=== PATIENT | female | born 1940 | race Hispanic/Latino ===

== ENCOUNTER 2017-11-21 06:20 | Day surgery (SDC) | payer OTHER ==
[2017-11-19 13:50] LABS: Absolute Lymphocytes (CBC) 1.6 K/uL (0.7-4.9); Absolute Monocytes 0.4 K/uL (0.1-1.3); Absolute Neutrophil 3.4 K/uL (1.8-8.0); Basophils % 0.3 % (0-1.3); Eosinophils % 1.3 % (0-4.4); Lymphocytes % 29.1 % (15.3-44.8); MCH 28.1 pg (27.0-35.0); MCV 86.7 fL (80-100); MPV 9.5 fL (7.6-11.3); Monocytes % 7.4 % (3.3-12.3); RBC Red Blood Cell Count 4.85 M/uL (3.86-4.86)
--- NOTE | 2017-11-19 13:57 | EKG ---
Test Date: 2017-11-19 Test Time: 13:28:07 Wax Ball Molder: JENNIFER MEASUREMENT RESULTS: Intervals: Rate: 63 OR: 138 QRSD: 78 QT: 418 QTc: 427 [place]: P: 45 OR: 138 QRS: 10 T: 29 INTERPRETIVE STATEMENTS: Normal sinus rhythm Normal ECG Compared to ECG 07/01/2016 15:51:46 Sinus bradycardia no longer present Electronically Signed On 11-19-17 13:57:15 CDT by Estevan Rodrigues
[2017-11-19 14:23] LABS: Potassium 4.5 mEq/L (3.6-5.0)
[2017-11-21] MEDS ORDERED: Ringers Lactate 1,000 ML IV ONE (06:24)
[2017-11-21] MEDS ORDERED: CEFAZOLIN/SWI 1gm 1 GM/10 ML SYR ONE (06:25)
[2017-11-21] MEDS ORDERED: MIDAZOLAM HCL 2 MG/2 ML INJ ONE (06:53)
[2017-11-21] MEDS ORDERED: LIDOCAINE 2% MPF 5 ML VIAL ONE (06:53)
[2017-11-21] MEDS ORDERED: PROPOFOL 200 MG/20 ML VIAL IV ONE (06:53)
[2017-11-21] MEDS ORDERED: FENTANYL CITR 100 MCG/2 ML ONE (06:54)
[2017-11-21] MEDS ORDERED: EPHEDRINE SULF 50 MG/5 ML SYR ONE (06:57)
--- NOTE | 2017-11-21 08:26 | P.BOP ---
Preoperative diagnosis: right knee pain with mechanical sx Postoperative diagnosis: medial meniscal/lat meniscal tear(s) Primary procedure: right knee arthoscopy with medial/lat debridement Estimated blood loss: 10 ccs Anesthesia: General Transferred to: Recovery Room Condition: Good
--- NOTE | 2017-11-21 09:06 | OP ---
Date of Procedure: 11/21/2017 Surgeon: Lyndon Calle MD Preoperative Diagnosis: Right knee pain with mechanical symptoms. Postoperative Diagnoses: Right knee pain with mechanical symptoms with apparent tear of the anterior horn of the medial meniscus with some tearing of the far posterior horn of medial meniscus, also wit h small tear of the lateral meniscus. Procedure: Right knee arthroscopy with debridement of medial and lateral menisci. Estimated Blood Loss: 10 cc. Complications: None. Specimens: No pathology specimens present. Indication For Operation: Ms. Santiago is a 76-year-old female who does not have significant amount o f arthritis, who on x-ray has continued persistent mechanical symptoms related to her right knee. De spite conservative care, she continues to have pain and problems. Therefore, MRI was done which demo nstrates probable meniscal tear or tears. All risks, benefits, and alternatives to the procedure wer e discussed with the patient. She states she understands things presented and wished to proceed. Description Of Procedure: The patient was taken to the operating room and placed in supine position. General anesthesia was obtained by the Anesthesia staff. Following this, a well-padded tourniquet was placed on superior right thigh, however was not used throughout the case. The right lower extrem ity was then prepped and draped in usual fashion for the procedure. Following this, attention was fi rst turned to the medial aspect, where there was found on inspection, a fairly large firm rubbery obj ect near the anterior horn of the medial meniscus. Also seen is some fraying and tearing of the post erior horn of the medial meniscus. A probe was used after establishment of the medial portal and it does demonstrate that if you pull the meniscus back, there is full thickness chondral loss underneath the medial meniscus. Also, there was some displaceable meniscal fragmentation. A 3.5 shaver was th en used to debride back the meniscus to a firm, hooked, stable, and well contoured base, both anterio rly and posteriorly. Attention was then turned to the lateral aspect, which demonstrate some fraying and could be rather s ignificant fraying at the midportion of the lateral meniscus. There was also seen a chondral defect at the lateral femoral condyle. The lateral meniscus was then debrided back to firm, hooked, stable, well contoured base. There was a slight amount of chondroplasty done to the lateral femoral condyle . The knee was again examined and all the above areas were without any pathology seen, which is amen able to arthroscopic intervention. Following this, the inferior arthroscopy portals were stapled yann t. The superior and medial arthroscopy portals were used for placement of Marcaine and this was then closed. The patient was then awakened and taken to recovery room in good condition. SHAMAR Voice ID: [id number] Report ID: [id number]
== END 2017-11-21 09:50 | disposition home or self-care (01) ==
LOC: OR 06:20
PROVIDERS: ATTEND Orthopaedic Surgery
PROC: 0SBC4ZZ Excision of Right Knee Joint, Percutaneous Endoscopic Approach (ICD-10-PCS; 2017-11-21)
PROC: 0SBC4ZZ Excision of Right Knee Joint, Percutaneous Endoscopic Approach (ICD-10-PCS; principal; 2017-11-21 07:30)
DX: S83.241A Other tear of medial meniscus, current injury, right knee, initial encounter (principal); S83.281A Other tear of lateral meniscus, current injury, right knee, initial encounter; M19.90 Unspecified osteoarthritis, unspecified site; I10 Essential (primary) hypertension
CPT/HCPCS: 29880; 36415; 80048; 85025; 93005; J0690; J2250; J3010

== ENCOUNTER → 2019-05-19 | Day surgery (SDC) | payer OTHER ==
[~2019-05-19] MED LIST: Ringers Lactate 0 ML IV ONE
--- NOTE | 2019-05-19 11:30 | RAD REPORT ---
EXAM DESCRIPTION: US - Breast Core BX w/US Guidance - 05/19/2019 9:45 am CLINICAL HISTORY: ICD N63.11, R93.8 COMPARISON: April 12, 2019 ultrasound TECHNIQUE: The risks, benefits alternatives to the procedure were explained to the patient and infor med consent obtained. Skin, subcutaneous and breast tissues anesthetized with lidocaine. Under sonographic guidance, two 14 gauge vacuum assisted core biopsies of the mass within the upper r ight breast were obtained. 2 centimeter specimens taken. Materials given to pathology. Subsequently a localizing clip was placed into the mass. Patient experienced no immediate complication IMPRESSION: Vacuum assisted core biopsies of the right breast mass
== END ==
LOC: DS 05-12 10:46
PROVIDERS: ATTEND Surgery
DX: C50.811 Malignant neoplasm of overlapping sites of right female breast (principal); Z17.0 Estrogen receptor positive status [ER+]
CPT/HCPCS: 19083; 88305

== ENCOUNTER 2019-05-31 06:49 | Day surgery (SDC) | payer OTHER ==
[2019-05-28 13:59] LABS: Absolute Lymphocytes (CBC) 1.7 K/uL (0.7-4.9); Basophils % 0.5 % (0-1.3); Hematocrit 41.8 % (36.0-45.0); Lymphocytes % 23.7 % (15.3-44.8); MPV 8.6 fL (7.6-11.3); RBC Red Blood Cell Count 4.79 M/uL (3.86-4.86)
[2019-05-28 14:11] LABS: Potassium 4.1 mmol/L (3.5-5.1)
--- NOTE | 2019-05-28 14:16 | RAD REPORT ---
EXAM DESCRIPTION: RAD - Chest Pa And Lat (2 Views) - 05/28/2019 2:11 pm CLINICAL HISTORY: preop, breast cancer surgery COMPARISON: None. TECHNIQUE: PA and lateral views of the chest were obtained. FINDINGS: The lungs are clear. No suspicious mass or nodule in the lung parenchyma. Heart size is n ormal and central vasculature is within normal limits. No pleural effusion or pneumothorax seen. Os teopenic and degenerative bony changes are present in the thoracic spine. There is minimal wedging of a midthoracic vertebrae not suspected to be acute. No aortic abnormality. IMPRESSION: No acute cardiopulmonary process.
--- NOTE | 2019-05-28 16:34 | EKG ---
Test Date: 2019-05-28 Test Time: 13:51:38 Residential Therapist: POWER MEASUREMENT RESULTS: Intervals: Rate: 59 DE: 124 QRSD: 78 QT: 406 QTc: 401 [place]: P: 54 DE: 124 QRS: 26 T: 36 INTERPRETIVE STATEMENTS: Sinus bradycardia Otherwise normal ECG Compared to ECG 11/19/2017 13:28:07 Sinus rhythm no longer present Electronically Signed On 05-28-19 16:33:44 COIL SPRING ASSEMBLER by Narinder Gann
[2019-05-31] MEDS ORDERED: Ringers Lactate 1,000 ML IV ONE ×2 (07:09→12:32)
[2019-05-31] MEDS ORDERED: CEFAZOLIN/SWI 1gm 1 GM/10 ML SYR ONE (07:10)
--- NOTE | 2019-05-31 08:38 | RAD REPORT ---
EXAM DESCRIPTION: NM - Lymphoscintigraphy - 05/31/2019 8:22 am CLINICAL HISTORY: BREAST CA Right breast preoperative lymphoscintigraphy COMPARISON: Chest Pa And Lat (2 Views) dated 05/28/2019 FINDINGS: Four separate injections of 0.1 millicuries technetium sulfur colloid were formulated. The radiopharmaceutical was injected intradermally in a right periareolar distribution. Good localizatio n of radiopharmaceutical was seen on the initial post injection scintigraphic. IMPRESSION: Successful preoperative right breast lymphoscintigraphy injection.
[2019-05-31] MEDS ORDERED: propofoL 200 MG/20 ML VIAL IV ONE (09:23)
[2019-05-31] MEDS ORDERED: FENTANYL CITR 100 MCG/2 ML ONE (09:23)
[2019-05-31] MEDS ORDERED: LIDOCAINE 1% MPF 5 ML VIAL ONE (09:23)
[2019-05-31] MEDS: METHYLENE BLUE 0.5% 10 ML AMP ONE ×2 (10:20→11:10)
--- NOTE | 2019-05-31 10:30 | RAD REPORT ---
EXAM DESCRIPTION: US - Brst,Preop NL Wire Init w/Guid - 05/31/2019 8:54 am CLINICAL HISTORY: BREAST MASS Right breast mass, 12 o'clock COMPARISON: Breast Core BX w/US Guidance dated 05/19/2019 FINDINGS: Preoperative diagnosis: Hypoechoic right breast mass 12 o'clock.. Post operative diagnosis: Same. Conscious Sedation: None Fluoroscopy time: None Contrast used: None Estimated blood loss: Minimal The right breast was prepped and draped in the usual sterile fashion. 1% lidocaine was infiltrated in to the subcutaneous tissues for local anesthesia. Real time ultrasound scanning of the right breast d emonstrated hypoechoic shadowing 10 mm mass. Under ultrasound guidance, using a [employer] preoperative wir e localization device, a guidewire was placed into the mass. There were no complications. Patient was then transferred to surgery. IMPRESSION: Successful ultrasound-guided preoperative wire localization right breast mass 12 o'clock position.
[2019-05-31] MEDS ORDERED: EPHEDRINE SULF 50 MG/ML VIAL ONE (11:01)
[2019-05-31] MEDS ORDERED: GLYCOPYRROLATE 0.2 MG/ML SYR ONE (11:32)
[2019-05-31] MEDS ORDERED: LABETALOL 20 MG/4ML SYRINGE IV ONE (11:40)
[2019-05-31] MEDS ORDERED: KETOROLAC 30 MG/ML INJ ONE (11:57)
[2019-05-31] MEDS ORDERED: dexAMETHasone 10 MG/ML VIAL ONE (11:58)
--- NOTE | 2019-05-31 11:59 | P.BOP ---
Preoperative diagnosis: right breast cancer Postoperative diagnosis: same Primary procedure: Right breast lumpectomy with axillary sentinel lymph node biopsy Power Plant Operator: MAIRA BAIRD (CLIP LOADING MACHINE ADJUSTER) Estimated blood loss: <10cc Specimen: breast Findings: sentinel LN neg per Dr Kendrick. lesion within specimen by Dr Valencia Anesthesia: General Complications: None Transferred to: Recovery Room Condition: Good
--- NOTE | 2019-05-31 12:05 | RAD REPORT ---
EXAM DESCRIPTION: US - Surgical Specimen - 05/31/2019 11:57 am CLINICAL HISTORY: SPEC Surgical specimen right breast COMPARISON: Brst,Preop NL Wire Init w/Guid dated 05/31/2019; Lymphoscintigraphy dated 05/31/2019; Br east Core BX w/US Guidance dated 05/19/2019 FINDINGS: Sonographic evaluation of right breast surgical specimen was performed. The mass of intere st and wire are seen a within the specimen. Findings were discussed with Dr. Schulz.
[2019-05-31 13:28] VITALS: BP 134/69; TEMP 96.9; O2SAT 895
[2019-05-31] MEDS ORDERED: ONDANSETRON 4 MG/2 ML VIAL ONE (13:41)
[2019-05-31] MEDS ORDERED: CODEINE 30MG/APAP 300MG TAB ONE (13:41)
--- NOTE | 2019-05-31 22:33 | OP ---
Date of Procedure: 05/31/2019 Surgeon: Valentino Schulz MD Role Player: IAN Montejo. Preoperative Diagnosis: Right breast cancer. Postoperative Diagnosis: Right breast cancer. Procedure: Right breast lumpectomy needle localized with axillary sentinel lymph node biopsy. Estimated Blood Loss: Less than 10 cc. Specimen: Breast. Findings: [place] lymph node negative per Dr. Kendrick. Lesion within the specimen by the radiologis tDr. Parker. Anesthesia: General plus local. Indications: This is a case of a female found to have breast cancer. Fully explained the multiple o ptions. She has elected a right breast lumpectomy with sentinel lymph node biopsy, possible axillary dissection understanding that she will receive radiation. She also has more aggressive form how to resect this, but she does not want at this moment. The benefits, alternatives, and risks fully expla ined, which include but are not limited to infection, bleeding, damage to adjacent structures, anesth esia complication, chronic lymphedema, chronic pain, recurrence, OH, even . She also understand s this may not relieve any symptoms. She might need more than one surgical intervention. She unders tood, signed the consent. Description Of Procedure: This patient came from the radiology suite, where she did have 2 different procedures. She received a sentinel lymph node marking this morning by radiologist and also she rec eived needle localization of the lesion. She was brought to the OR and then brought to operating cuauhtemoc m with intact needle protected at all times. The patient was brought to the operating room, placed i n supine position. Anesthesia was done without complication. Time-out was called. The right breast was prepped and draped in a sterile fashion. We injected blue dye over the area periareolar underne ath the lesion and massaged the area for about 5 minutes. All this making sure the needle remained i ntact. After that, once again we had the area prepped and draped in a sterile fashion. We proceeded to check for the sentinel lymph node. We made an incision in the inframammary line after obtaining our first measure, which is skin measure using the gamma probe and the skin was 237. In vivo number was 608. After that, we proceeded then to identify the lymph node and we noticed blue. We tried to remove that with the help of hemoclips. Specimen was removed. It showed an ex-vivo count of 762 and 10 seconds ex-vivo count is 799 with a blue node. The specimen was sent to the pathologist. There was a sentinel lymph node and another an extra lymph node, and both of them are negative for any canc er. Therefore, we ill closed this with just irrigation making sure we have full hemostasis and then closed the area with 3-0 chromic in a subcuticular fashion and then lisandro on the skin. The sponge count and instrument count in that area are clear; and then we went to the right breast region. We a lready had a wire localized in that area. So, we made a curvilinear incision to include also the ins ertion of that wire point. Then after that, we proceeded to remove the breast tissue, which was take n all the way down to deep breast tissue. Specimen was removed, sent with the wire to the radiologis t, who confirmed the lesion within the specimen. Area was irrigated, hemostasis obtained, and we cindy sed the area with 3-0 chromic and 4-0 PDS after ensuring complete hemostasis. Sponge count and instr ument counts were correct. Patient tolerated the procedure well. Patient was sent to recovery in st able condition. Disposition: Home. Activity: As tolerated. No heavy lifting. Followup: Follow up in my office in 1 week. Call for appointment at [phone]. Keep area dry for 48 hours, then may shower. Keep Steri-Strips intact. Medications: Tylenol No. 3 q.4 hours p.r.n. pain, Bactrim DS p.o. b.i.d. ALFREDO/YOCASTA Voice ID: [id number] Report ID: [id number]
== END 2019-05-31 14:25 | disposition home or self-care (01) ==
LOC: OR 06:49
PROVIDERS: ATTEND Surgery
PROC: 07B50ZX Excision of Right Axillary Lymphatic, Open Approach, Diagnostic (ICD-10-PCS; 2019-05-31)
PROC: 0HBT0ZZ Excision of Right Breast, Open Approach (ICD-10-PCS; principal; 2019-05-31 10:15)
DX: C50.411 Malignant neoplasm of upper-outer quadrant of right female breast (principal); Z17.0 Estrogen receptor positive status [ER+]; I10 Essential (primary) hypertension; E78.5 Hyperlipidemia, unspecified; Z90.49 Acquired absence of other specified parts of digestive tract; Z80.9 Family history of malignant neoplasm, unspecified; Z82.49 Family history of ischemic heart disease and other diseases of the circulatory system
CPT/HCPCS: 19301; 93005; 85025; 80048; 36415; 88307 ×2; 88333; 71046; 76098; 19285; 78195; 38500; 38900; J1100; J0690; J7120 ×2; J2405; A9541; J2704; J3010

== ENCOUNTER 2020-01-04 12:38 | Inpatient (IN) | payer OTHER ==
[2020-01-04] MEDS ORDERED: FENTANYL CITR 100 MCG/2 ML ONE (13:19)
--- NOTE | 2020-01-04 14:49 | RAD REPORT ---
EXAM DESCRIPTION: RAD - Femur Right - 01/04/2020 2:18 pm CLINICAL HISTORY: Right leg pain FINDINGS: Comminuted moderately displaced fracture right superior pubic ramus. Nondisplaced fracture right infe rior pubic ramus Osteoporosis No dislocation
--- NOTE | 2020-01-04 14:49 | RAD REPORT ---
EXAM DESCRIPTION: RAD - Pelvis - 01/04/2020 2:18 pm CLINICAL HISTORY: Pelvic pain status post injury FINDINGS: Comminuted moderately displaced fracture right superior pubic ramus. Nondisplaced fracture right inferior pubic ramus Osteoporosis No dislocation
--- NOTE | 2020-01-04 14:54 | RAD REPORT ---
EXAM DESCRIPTION: CTSpine Lumbar Wo Con01/04/2020 2:19 pm CLINICAL HISTORY: Back injury with radiculopathy status post fall COMPARISON: None TECHNIQUE: Computed axial tomography lumbar spine was obtained with coronal and sagittal reconstruct ion. All CT scans are performed using dose optimization technique as appropriate and may include automated exposure control or mA/KV adjustment according to patient size. FINDINGS: No fracture is seen. No dislocation is noted. A high-grade stenosis is not visualized IMPRESSION: Negative for a lumbar fracture. If patient continues have symptoms to suggest spinal can al pathology MRI would be recommended
--- NOTE | 2020-01-04 14:58 | RAD REPORT ---
EXAM DESCRIPTION: CT - Pelvis Wo Cont - 01/04/2020 2:20 pm CLINICAL HISTORY: Pelvic pain status post fall COMPARISON: None. TECHNIQUE: Computed axial tomography of the pelvis was obtained. Coronal and sagittal reconstruction performed All CT scans are performed using dose optimization technique as appropriate and may include automated exposure control or mA/KV adjustment according to patient size. FINDINGS: Mildly to moderately displaced comminuted fracture right superior pubic ramus. Minimally displaced fracture junction of the right superior and inferior pubic ramus. No dislocation Small extraperitoneal hematoma adjacent to bladder. IMPRESSION: Mildly to moderately displaced comminuted fracture right superior pubic ramus Minimally displaced fracture junction of the right superior and inferior pubic ramus.
[2020-01-04] MEDS ORDERED: MORPHINE 2 MG/ML SYR ONE ×3 (15:52→23:10)
--- NOTE | 2020-01-04 16:05 | ER ---
Nurse's Notes [facility] Name: Autumn Santiago Age: 79 yrs Sex: Female : 1940 Arrival Date: 01/04/2020 Time: 12:46 Bed 17 Private MD: Diagnosis: Multiple fractures of pelvis without disruption of pelvic ring;Fall on same level from slipping, tripping and stumbling Presentation: 01/03 12:35 Chief complaint: Patient states: fell at 6pm last night and landed on her right hip, ah has pain from right groin to outer right hip 03/18. vitals 128/60, 72, 96%, 98.2. Coronavirus screen: Patient denies a cough. Patient denies shortness of breath or difficulty breathing. Patient denies measured and/or subjective temperature greater than 100.4F prior to today's visit. Patient denies travel on a cruise ship or to a country the [facility] currently lists as an affected area. Patient denies contact with known and/or suspected case of COVID-19. Proceed with normal triage. Ebola Screen: No symptoms or risks identified at this time. Initial Sepsis Screen: Does the patient meet any 2 criteria? No. Patient's initial sepsis screen is negative. Does the patient have a suspected source of infection? No. Patient's initial sepsis screen is negative. Risk Assessment: Do you want to hurt yourself or someone else? Patient reports no desire to harm self or others. Onset of symptoms was January 03, 2020. 12:35 Method Of Arrival: EMS: [facility] 12:35 Acuity: MEME 3 Historical: - Allergies: 12:53 No Known Allergies; - Home Meds: 12:53 aspirin 81 mg Oral chew [Active]; 01/04 01:22 amlodipine 5 mg tab 1 tab once daily [Active]; gabapentin 300 mg oral cap 1 cap TWICE mt2 DAILY for Neuropathic Pain [Active]; anastrozole 1 mg oral tab 1 tab once daily for Hormone Receptor Positive Breast Cancer [Active]; omeprazole 20 mg Oral cpDR 1 cap once daily for Gastric Ulcer [Active]; - PMHx: 01/03 12:53 Hypertension; neuropathy; Cancer, Breast; Osteoporosis; - PSHx: 12:53 Cholecystectomy; Appendectomy; Hysterectomy; lymphnodes removed from right breast; Knee surgery; - Immunization history:: Adult Immunizations up to date. - Social history:: Smoking status: Patient denies any tobacco usage or history of. Screenin:14 Abuse screen: Denies threats or abuse. Nutritional screening: No deficits noted. Tuberculosis screening: No symptoms or risk factors identified. Fall Risk None identified. Assessment: 13:00 General: Appears uncomfortable, Behavior is calm, cooperative, appropriate for age. ah Pain: Complains of pain in groin, right inguinal area, right iliac crest and right hip Pain does not radiate. Pain currently is 10 out of 10 on a pain scale. Quality of pain is described as aching, Pain began 1 day ago. Neuro: Level of Consciousness is awake, alert, obeys commands, Oriented to person, place, time, situation, Appropriate for age. Cardiovascular: Capillary refill < 3 seconds Patient's skin is warm and dry. Respiratory: Airway is patent Respiratory effort is even, unlabored, Respiratory pattern is regular, symmetrical. : Urine is clear, Reports difficulty urinating. Derm: Skin is intact, is healthy with good turgor, Skin is dry. Musculoskeletal: Circulation, motion, and sensation intact. Capillary refill < 3 seconds, Reports pain in groin and right hip. 13:10 Reassessment: Fentanyl given per IVP. 14:10 Reassessment: Patient and/or family updated on plan of care and expected duration. Pain ah level reassessed. Patient is alert, oriented x 3, equal unlabored respirations, skin warm/dry/pink. Pt tolerated fentanyl well. No adverse reactions noted. 15:45 Reassessment: Pt states that she is unable to urinate in the bedpan. Informed provider, and he ordered a straight cath and a urine dipstick. Pt tolerated well. 17:45 Reassessment: Pt sitting up in bed eating tray. Tolerated well. No needs voiced. 18:52 Reassessment: Awaiting on room assignment. Pt resting with no needs voiced at this time. 19:20 Reassessment: Patient and/or family updated on plan of care and expected duration. Pain mt2 level reassessed. General: Appears uncomfortable, Behavior is cooperative. Pain: Complains of pain in pelvis Pain does not radiate. Pain currently is 8 out of 10 on a pain scale. Quality of pain is described as aching. 20:00 Reassessment: Patient and/or family updated on plan of care and expected duration. Pain mt2 level reassessed. Reassessment: Patient is alert, oriented x 3, equal unlabored respirations, skin warm/dry/pink. General: Appears. General: Appears uncomfortable, Behavior is cooperative. Pain: Complains of pain in pelvis Pain currently is 5 out of 10 on a pain scale. GI: No deficits noted. EENT: No deficits noted. 21:00 Reassessment: Patient and/or family updated on plan of care and expected duration. Pain mt2 level reassessed. Patient is alert, oriented x 3, equal unlabored respirations, skin warm/dry/pink. PT IS ADMITTED AND WILL BE A N ED HOLD. NOTIFIED PT. REFERE TO [facility]ART[facility]. General: Appears comfortable, Behavior is calm, cooperative. Pain: Denies pain. Vital Signs: 12:35 BP 127 / 71; Pulse 68; Resp 18; Temp 98.8; Pulse Ox 94% ; Weight 66.22 kg; Height 5 ft. 7 in. (170.18 cm); Pain 10/10; 13:00 BP 125 / 63; Pulse 64; Resp 17; Pulse Ox 94% ; 14:00 BP 118 / 65; Pulse 57; Resp 16; Pulse Ox 95% ; 15:28 BP 145 / 89; Pulse 79; Resp 16; Pulse Ox 95% ; 16:00 BP 131 / 67; Pulse 78; Resp 18; Pulse Ox 95% ; 17:00 BP 124 / 82; Pulse 80; Resp 16; Pulse Ox 96% ; 18:00 BP 121 / 69; Pulse 85; Resp 16; Pulse Ox 94% ; 19:00 BP 112 / 68; Pulse 80; Resp 15; Pulse Ox 94% ; 19:20 BP 123 / 70; Pulse 78; Resp 16; Pulse Ox 95% ; mt2 20:00 BP 119 / 60; Pulse 69; Resp 16; Temp 97.9(O); Pulse Ox 95% on R/A; Pain 6/10; mt2 21:00 BP 117 / 69; Pulse 63; Resp 17; Pulse Ox 96% ; Pain 0/10; mt2 12:35 Body Mass Index 22.87 (66.22 kg, 170.18 cm) ED Course: 12:46 Patient arrived in ED. ah 12:49 [facility] cp 12:49 Albin Fernandes MD is Attending Physician. cp 12:50 Triage completed. ah 13:00 Becca Rodrigues, RN is Primary Nurse. 13:17 Inserted saline lock: 22 gauge in right forearm, using aseptic technique. ah 14:18 XRAY Pelvis In Process Unspecified. EDMS 14:18 XRAY Femur RIGHT In Process Unspecified. EDMS 14:19 CT Lumbar Spine Wo Con In Process Unspecified. EDMS 14:20 CT Pelvis wo Cont In Process Unspecified. EDMS 16:03 Zaira Catherine MD is Hospitalizing Provider. cp 16:17 Straight cath inserted, using sterile technique, Specimen obtained. 15 Returned clear ah yellow urine. Patient tolerated well. 19:12 Primary Nurse role handed off by Becca Rodrigues, JEFFY mt2 19:12 Sandra Gerard RN is Primary Nurse. mt2 19:14 Patient has correct armband on for positive identification. Placed in gown. Bed in low ah position. Call light in reach. Side rails up X2. Pulse ox on. NIBP on. 19:30 Arm band placed on right wrist. mt2 21:00 No provider procedures requiring assistance completed. Patient admitted, IV remains in mt2 place. Administered Medications: 13:10 Drug: fentaNYL (PF) 25 mcg Route: IVP; Site: right forearm; 15:39 Follow up: Response: No adverse reaction ah 18:20 Follow up: Response: No adverse reaction 15:45 Drug: morphine 2 mg Route: IVP; Site: right antecubital; 18:21 Follow up: Response: No adverse reaction 19:40 Drug: morphine 2 mg Route: IVP; Site: left forearm; mt2 20:40 Follow up: Response: No adverse reaction; Pain is decreased mt2 Outcome: 16:04 Decision to Hospitalize by Provider. cp 21:00 Admitted to ER Hold. Please see [facility] for further documentation. mt2 21:00 Condition: stable 21:00 Instructed on the need for admit. 01/04 09:33 Patient left the ED. bp Signatures: Dispatcher [employer] EDWY Albin Bolton PA PA cp Peltier, Brian, RN RN bp Becca Rodrigues RN RN Sandra Gerard RN RN mt2 Corrections: (The following items were deleted from the chart) 01/03 19:00 13:10 Reassessment: Morphine given per IVP. [facility] 19: 14:10 Reassessment: Patient and/or family updated on plan of care and expected ah duration. Pain level reassessed. Patient is alert, oriented x 3, equal unlabored respirations, skin warm/dry/pink. : 19:07 BP 131 / 67; Pulse 78bpm; Resp 18bpm; Pulse Ox 95%; [facility]
--- NOTE | 2020-01-04 16:05 | EDPHYS ---
Physician Documentation [facility] Name: Autumn Santiago Age: 79 yrs Sex: Female : 1940 Arrival Date: 01/04/2020 Time: 12:46 Bed 17 Private MD: MONIQUE Physician Albin Fernandes HPI: 01/03 13:00 This 79 yrs old Female presents to ER via EMS with complaints of Fall Injury. cp 13:00 Details of fall: The patient fell from an upright position, while standing. Onset: The cp symptoms/episode began/occurred yesterday. Associated injuries: The patient sustained pelvis and right hip, decreased range of motion, painful injury. Patient reports she has been unable to walk without assistance since fall and has had to carry her. Historical: - Allergies: 12:53 No Known Allergies; - Home Meds: 12:53 aspirin 81 mg Oral chew [Active]; 01/04 01:22 amlodipine 5 mg tab 1 tab once daily [Active]; gabapentin 300 mg oral cap 1 cap TWICE mt2 DAILY for Neuropathic Pain [Active]; anastrozole 1 mg oral tab 1 tab once daily for Hormone Receptor Positive Breast Cancer [Active]; omeprazole 20 mg Oral cpDR 1 cap once daily for Gastric Ulcer [Active]; - PMHx: 01/03 12:53 Hypertension; neuropathy; Cancer, Breast; Osteoporosis; - PSHx: 12:53 Cholecystectomy; Appendectomy; Hysterectomy; lymphnodes removed from right breast; Knee ah surgery; - Immunization history:: Adult Immunizations up to date. - Social history:: Smoking status: Patient denies any tobacco usage or history of. ROS: 13:05 Constitutional: Negative for body aches, chills, fever, poor PO intake. cp 13:05 Eyes: Negative for injury, pain, redness, and discharge. cp 13:05 ENT: Negative for ear pain, sore throat, difficulty swallowing, difficulty handling secretions. 13:05 Neck: Negative for pain with movement, pain at rest, stiffness. 13:05 Cardiovascular: Negative for chest pain. 13:05 Respiratory: Negative for cough, shortness of breath, wheezing. 13:05 Abdomen/GI: Negative for abdominal pain, nausea, vomiting, and diarrhea, constipation, black/tarry stool, rectal bleeding. 13:05 Back: Negative for pain at rest, pain with movement. 13:05 MS/extremity: Positive for pain, of the pelvis and right hip, Negative for paresthesias. 13:05 Neuro: Negative for altered mental status, dizziness, headache, loss of consciousness, syncope, weakness. 13:05 All other systems are negative. Exam: 13:10 Constitutional: The patient appears in no acute distress, alert, awake, non-toxic, well cp developed, well nourished, uncomfortable. 13:10 Head/Face: Normocephalic, atraumatic. cp 13:10 Eyes: Periorbital structures: appear normal, Conjunctiva: normal, no exudate, no injection, Sclera: no appreciated abnormality, Lids and lashes: appear normal, bilaterally. 13:10 ENT: External ear(s): are unremarkable, Nose: is normal, Mouth: is normal, Posterior pharynx: Airway: no evidence of obstruction, patent. 13:10 Neck: C-spine: vertebral tenderness, is not appreciated, crepitus, is not appreciated, ROM/movement: is normal, is supple, without pain, no range of motions limitations, no nuchal rigidity. 13:10 Chest/axilla: Inspection: normal, Palpation: is normal, no crepitus, no tenderness. 13:10 Cardiovascular: Rate: normal, Rhythm: regular, Edema: is not appreciated, JVD: is not appreciated. 13:10 Respiratory: the patient does not display signs of respiratory distress, Respirations: normal, no use of accessory muscles, no retractions, labored breathing, is not present, Breath sounds: are clear throughout, no decreased breath sounds, no stridor, no wheezing. 13:10 Abdomen/GI: Inspection: abdomen appears normal, Bowel sounds: active, all quadrants, Palpation: soft, in all quadrants, nontender, in all quadrants, rebound tenderness, is not appreciated, involuntary guarding, is not appreciated. 13:10 Back: pain, is absent, ROM is normal, vertebral tenderness, is not appreciated. 13:10 Musculoskeletal/extremity: Extremities: grossly normal except: noted in the right hip: decreased ROM, pain. 13:10 Skin: cellulitis, is not appreciated, no rash present. 13:10 Neuro: Orientation: to person, place \T\ time. Mentation: is normal, Motor: moves all fours, strength is normal, Sensation: no obvious gross deficits. 17:30 ECG was reviewed by the Attending Physician. cp Vital Signs: 12:35 BP 127 / 71; Pulse 68; Resp 18; Temp 98.8; Pulse Ox 94% ; Weight 66.22 kg; Height 5 ft. ah 7 in. (170.18 cm); Pain 10/10; 13:00 BP 125 / 63; Pulse 64; Resp 17; Pulse Ox 94% ; ah 14:00 BP 118 / 65; Pulse 57; Resp 16; Pulse Ox 95% ; ah 15:28 BP 145 / 89; Pulse 79; Resp 16; Pulse Ox 95% ; ah 16:00 BP 131 / 67; Pulse 78; Resp 18; Pulse Ox 95% ; ah 17:00 BP 124 / 82; Pulse 80; Resp 16; Pulse Ox 96% ; ah 18:00 BP 121 / 69; Pulse 85; Resp 16; Pulse Ox 94% ; ah 19:00 BP 112 / 68; Pulse 80; Resp 15; Pulse Ox 94% ; ah 19:20 BP 123 / 70; Pulse 78; Resp 16; Pulse Ox 95% ; mt2 20:00 BP 119 / 60; Pulse 69; Resp 16; Temp 97.9(O); Pulse Ox 95% on R/A; Pain 6/10; mt2 21:00 BP 117 / 69; Pulse 63; Resp 17; Pulse Ox 96% ; Pain 0/10; mt2 12:35 Body Mass Index 22.87 (66.22 kg, 170.18 cm) MDM: 12:50 Patient medically screened. [facility] 13:00 Differential diagnosis: contusion, fracture, multiple trauma. 15:33 Physician consultation: Kishan Tejeda MD was called at 15:33, left message with office cp for consult. 15:54 Physician consultation: Zaira Catherine MD was called at 15:55, regarding patient's cp condition, left message on voicemail. 16:00 Data reviewed: vital signs, nurses notes, radiologic studies, CT scan, plain films. 16:48 Physician consultation: Zaira Catherine MD was called at 16:48, regarding admission, cp patient's condition, left message on voicemail. 01/03 15:50 Order name: Urine Microscopic Only; Complete Time: 18:15 cp 01/03 18:15 Interpretation: Normal except: AMORPH 3+. cp 01/03 16:19 Order name: Urine Dipstick--Ancillary (enter results) bd 01/03 16:48 Order name: Basic Metabolic Panel; Complete Time: 18:15 01/03 16:48 Order name: CBC with Diff; Complete Time: 18:15 01/03 18:16 Interpretation: Reviewed. 01/03 16:48 Order name: LFT's; Complete Time: 18:15 01/03 16:48 Order name: PT-INR; Complete Time: 18:15 01/03 12:56 Order name: XRAY Pelvis; Complete Time: 15:00 01/03 12:56 Order name: XRAY Femur RIGHT; Complete Time: 15:00 01/03 13:54 Order name: CT Lumbar Spine Wo Con; Complete Time: 15:00 01/03 13:54 Order name: CT Pelvis wo Cont; Complete Time: 15:00 01/03 18:08 Order name: Basic Metabolic Panel EDTX 01/03 18:08 Order name: Basic Metabolic Panel [facility] 01/03 18:08 Order name: CBC with Automated Diff EDTX 01/03 18:08 Order name: CBC with Automated Diff EDMS 01/03 12:56 Order name: IV; Complete Time: 13:18 01/03 15:50 Order name: Cath; Complete Time: 16:06 01/03 15:50 Order name: Urine Dipstick-Ancillary (obtain specimen); Complete Time: 16:16 01/03 16:44 Order name: Diet Regular; Complete Time: 16:44 01/03 16:48 Order name: EKG; Complete Time: 16:48 01/03 16:48 Order name: Cardiac monitoring; Complete Time: 17:27 01/03 16:48 Order name: EKG - Nurse/Tech; Complete Time: 17:27 01/03 16:48 Order name: IV Saline Lock; Complete Time: 17:14 01/03 16:48 Order name: Labs collected and sent; Complete Time: 17:14 01/03 16:48 Order name: O2 Per Protocol; Complete Time: 17:10 01/03 16:48 Order name: O2 Sat Monitoring; Complete Time: 17:10 01/03 18:10 Order name: Physical Therapy Consult [facility] 01/03 18:13 Order name: Social Service Consult EDTX EC:30 Rate is 72 beats/min. Rhythm is regular. [place] interval is normal. QRS interval is normal. cp QT interval is normal. T waves are Inverted in lead aVR. Interpreted by me. Reviewed by me. Administered Medications: 13:10 Drug: fentaNYL (PF) 25 mcg Route: IVP; Site: right forearm; ah 15:39 Follow up: Response: No adverse reaction ah 18:20 Follow up: Response: No adverse reaction ah 15:45 Drug: morphine 2 mg Route: IVP; Site: right antecubital; ah 18:21 Follow up: Response: No adverse reaction ah 19:40 Drug: morphine 2 mg Route: IVP; Site: left forearm; mt2 20:40 Follow up: Response: No adverse reaction; Pain is decreased mt2 Disposition: 01/04/20 16:04 Hospitalization ordered by Zaira Catherine for Inpatient Admission. Preliminary diagnosis are Multiple fractures of pelvis without disruption of pelvic ring, Fall on same level from slipping, tripping and stumbling. - Bed requested for Telemetry/MedSurg (Inpatient). - Status is Inpatient Admission. bp - Condition is Stable. - Problem is new. - Symptoms have improved. Addendum: 01/06/2020 17:45 Co-signature as Attending Physician, Albin Fernandes MD I agree with the assessment and c jordan plan of care. Signatures: Dispatcher [employer] [facility] Albin Fernandes MD MD cha Page, Corey, PA PA cp Rae Dwyer RN RN Jean Mohr RN RN Becca Rodrigues, RN JEFFY Sandra Gerard RN RN mt2 Corrections: (The following items were deleted from the chart) 01/03 16:04 16:04 Hospitalization Ordered by Zaira Catherine MD for Inpatient Admission. Preliminary cp diagnosis is Multiple fractures of pelvis without disruption of pelvic ring. Bed requested for Telemetry/MedSurg (Inpatient). Status is Inpatient Admission. Condition is Stable. Problem is new. Symptoms have improved. cp 18:15 18:08 CONS Physician Consult ordered. EDTX EDTX 20:45 16:04 01/04/2020 16:04 Hospitalization Ordered by Zaira Catherine MD for Inpatient cg Admission. Preliminary diagnosis is Multiple fractures of pelvis without disruption of pelvic ring; Fall on same level from slipping, tripping and stumbling. Bed requested for Telemetry/MedSurg (Inpatient). Status is Inpatient Admission. Condition is Stable. Problem is new. Symptoms have improved. cp 01/04 06:23 01/03 20:45 01/04/2020 16:04 Hospitalization Ordered by Zaira Catherine MD for Inpatient cg Admission. Preliminary diagnosis is Multiple fractures of pelvis without disruption of pelvic ring; Fall on same level from slipping, tripping and stumbling. Bed requested for [facility] ER HOLD. Status is Inpatient Admission. Condition is Stable. Problem is new. Symptoms have improved. cg 01/04 09:33 06:23 01/04/2020 16:04 Hospitalization Ordered by Zaira Catherine MD for Inpatient bp Admission. Preliminary diagnosis is Multiple fractures of pelvis without disruption of pelvic ring; Fall on same level from slipping, tripping and stumbling. Bed requested for Telemetry/MedSurg (Inpatient). Status is Inpatient Admission. Condition is Stable. Problem is new. Symptoms have improved. cg
[2020-01-04 16:57] LABS: Urine Amorphous Sediment 3+ /HPF (NONE SEEN); Urine Bacteria <20 /HPF (<20); Urine Culture Reflex Order NOT NEEDED; Urine RBC <5 /HPF (NONE SEEN)
[2020-01-04 17:26] LABS: Absolute Lymphocytes (CBC) 0.9 K/uL (0.7-4.9); Basophils % 0.3 % (0-1.3); Lymphocytes % 18.4 % (15.3-44.8); MPV 8.8 fL (7.6-11.3); RBC Red Blood Cell Count 4.31 M/uL (3.86-4.86)
[2020-01-04 17:42] LABS: Protime INR 1.09
[2020-01-04 17:44] LABS: BUN Blood Urea Nitrogen 15 mg/dL (7-18); Bicarbonate 27 mmol/L (21-32); Glucose Level 101 mg/dL (74-106); Potassium 3.6 mmol/L (3.5-5.1); Sodium Level 142 mmol/L (136-145)
[2020-01-04 17:45] LABS: ALT/SGPT 27 U/L (12-78); AST/SGOT 25 U/L (15-37); Albumin 3.5 g/dL (3.4-5.0); Alkaline Phosphatase 69 U/L (45-117); Bilirubin Direct 0.2 mg/dL (0-0.2); Bilirubin Total 0.8 mg/dL (0.2-1.0); Protein, Total 6.8 g/dL (6.4-8.2)
[2020-01-04 19:47] LABS: Urine Blood TRACE (NEG); Urine Glucose NEGATIVE (NEG); Urine Protein NEGATIVE (NEG)
[2020-01-04] MEDS ORDERED: NA CHLORIDE 0.9% 1,000 ML ONE (21:57)
[2020-01-04] MEDS: MORPHINE 2 MG/ML SYR IV PRN (23:15)
[2020-01-05 00:52] VITALS: BMI 22.8
[2020-01-05] MEDS: MORPHINE 2 MG/ML SYR IV PRN ×3 (04:33→17:00)
[2020-01-05] MEDS ORDERED: MORPHINE 2 MG/ML SYR ONE (04:36)
[2020-01-05 04:57] LABS: Absolute Lymphocytes (CBC) 1.3 K/uL (0.7-4.9); Basophils % 0.4 % (0-1.3); Lymphocytes % 23.7 % (15.3-44.8); MPV 8.5 fL (7.6-11.3); RBC Red Blood Cell Count 4.21 M/uL (3.86-4.86)
[2020-01-05 05:13] LABS: Potassium 3.7 mmol/L (3.5-5.1)
[2020-01-05] MEDS: GABAPENTIN 300 MG CAP PO SCH (20:56)
[2020-01-05] MEDS: ATORVASTATIN 10 MG TAB PO SCH (20:58)
--- NOTE | 2020-01-06 02:54 | HP ---
Date of Admission: 01/04/2020 History Of Present Illness: A 79-year-old female who presented to the emergency room with pain in th e right pelvic area after she encountered a fall at home. She has a description that she turned arou nd while she was at home and her foot may have got caught in the carpet and she fell, started feeling right hip pain. She came to emergency room and was found to have mild to moderately displaced commi nuted fracture of right superior pubic ramus and minimally displaced fracture of the right superior a nd inferior pubic rami. The patient was admitted for pain control and physical therapy for ambulatio n because she was in so much pain and cannot hold herself or walk. Review of Systems: Cardiovascular: No complaint. Respiratory: No complaint. Genitourinary: No complaint. Gastrointestinal: No complaint. Neurological: No complaint. Skeletomuscular: As above. Past Medical History: 1.Hypertension. 2.Hyperlipidemia. 3.History of breast cancer. 4.Gastroesophageal reflux disease. 5.Osteoporosis. Past Surgical History: The patient has had cholecystectomy, appendectomy, hysterectomy, and right br east lumpectomy. Family History: Noncontributing. Social History: No smoking, alcohol, or drug abuse history. Medications: Include amlodipine 5 mg p.o. daily, aspirin 81 mg p.o. daily, gabapentin 300 mg p.o. b. i.d., omeprazole 20 mg p.o. daily, pravastatin 40 mg p.o. daily, and ramipril 5 mg p.o. daily. The p atient said she was on Arimidex, but she stopped taking it. Allergies: NO KNOWN DRUG ALLERGIES. Physical Examination: Vital Signs: Blood pressure 130/60, pulse 73, temperature 98.5. Heart: Regular rate and rhythm. Chest: Clear to auscultation. Abdomen: Soft, nontender, nondistended. Bowel sounds normoactive. Extremities: No edema. No cyanosis. Peripheral pulses are felt. The patient has tenderness over t he right pubic bone, but has no tenderness over the right hip joint and no swelling in that area. Diagnostic Data: Pelvic CT as mentioned in history of present illness about the right pubic ramus fr actures. Lumbar spine negative for lumbar fracture and femur x-ray showed osteoporosis, but no fract ure. The patient's CBC unrevealing, platelets 148. Chemistry; BUN 18, creatinine 0.65, GFR 88, gluc ose 115, calcium 8.2. Urinalysis showed 3+ sodium and rbc's less than 5. Assessment And Plan: Right pelvic bone fracture in the rami superior-inferior with pain. She descri bes it 8-03/18 in that area. The patient has been put on morphine and she is not moving at this time because of the pain and cannot bear her weight on her own, being admitted. We will have Physical Th erapy and Orthopedics evaluate the patient and see her, likely that the patient will have to have phy sical therapy. Meanwhile, she is on morphine IV for pain control. We will continue her on her home medications for illnesses and we will put her on Lovenox subcutaneous prophylaxis for DVT. Look wild aguirre for details. MFS/MODL Voice ID: [id number]
[2020-01-06 05:44] LABS: Absolute Lymphocytes (CBC) 1.1 K/uL (0.7-4.9); Basophils % 0.3 % (0-1.3); Lymphocytes % 13.2 % (15.3-44.8); MPV 8.6 fL (7.6-11.3)
[2020-01-06 05:45] LABS: BUN Blood Urea Nitrogen 19 mg/dL (7-18); Bicarbonate 27 mmol/L (21-32); Glucose Level 133 mg/dL (74-106); Potassium 3.7 mmol/L (3.5-5.1); Sodium Level 139 mmol/L (136-145)
[2020-01-06] MEDS: PANTOPRAZOLE 40MG TABLET PO SCH (05:50)
[2020-01-06] MEDS: MORPHINE 2 MG/ML SYR IV PRN ×3 (06:08→17:43)
--- NOTE | 2020-01-06 07:36 | EKG ---
Test Date: 2020-01-04 Test Time: 17:23:04 Testing Shaking Shipping: TAYLER MEASUREMENT RESULTS: Intervals: Rate: 72 AK: 142 QRSD: 68 QT: 358 QTc: 392 [place]: P: 39 AK: 142 QRS: 22 T: 50 INTERPRETIVE STATEMENTS: Normal sinus rhythm Low voltage QRS Nonspecific T wave abnormality Abnormal ECG Compared to ECG 05/28/2019 13:51:38 Low QRS voltage now present T-wave abnormality now present Sinus bradycardia no longer present Electronically Signed On 01-06-20 07:32:48 CDT by Narinder Gann
[2020-01-06] MEDS: ENOXAPARIN 40 MG/0.4 ML SQ SCH (08:56)
[2020-01-06] MEDS: ramipriL 5 MG CAP PO SCH (08:57)
[2020-01-06] MEDS: AMLODIPINE 5 MG TAB PO SCH (08:57)
[2020-01-06] MEDS: GABAPENTIN 300 MG CAP PO SCH ×2 (08:57→21:45)
[2020-01-06] MEDS: ASPIRIN EC 81 MG TAB PO SCH (08:57)
[2020-01-06] MEDS ORDERED: Enoxaparin 120 MG/0.8 ML SYR SQ SCH (09:00)
[2020-01-06] MEDS: ATORVASTATIN 10 MG TAB PO SCH (21:45)
[2020-01-07] MEDS: PANTOPRAZOLE 40MG TABLET PO SCH (05:50)
[2020-01-07] MEDS: ASPIRIN EC 81 MG TAB PO SCH (08:18)
[2020-01-07] MEDS: AMLODIPINE 5 MG TAB PO SCH (08:19)
[2020-01-07] MEDS: ENOXAPARIN 40 MG/0.4 ML SQ SCH (08:19)
[2020-01-07] MEDS: GABAPENTIN 300 MG CAP PO SCH ×2 (08:19→21:00)
[2020-01-07] MEDS: MORPHINE 2 MG/ML SYR IV PRN ×2 (08:19→17:49)
[2020-01-07] MEDS: ramipriL 5 MG CAP PO SCH (08:21)
--- NOTE | 2020-01-07 10:19 | RAD REPORT ---
EXAM DESCRIPTION: RAD - Foot Left 3 View - 01/07/2020 10:01 am CLINICAL HISTORY: Left Foot pain FINDINGS: No fracture seen. Mild medial subluxation second proximal phalanx. Mild to moderate lateral subluxation second middle phalanx. Appears to be a postsurgical change involving the distal aspect of the fifth proximal phalanx. Bones are osteoporotic. Mild narrowing involves the DIP and PIP joints.
--- NOTE | 2020-01-07 12:07 | CON ---
Date of Consultation: 01/07/2020 Reason For Consultation: Right hip pain. History Of Present Illness: Ms. Santiago is a 79-year-old female who presented to the ER after sustai porfirio a fall on the carpet. She reports subsequent pain to her right hip and difficulty with weightbea r and ambulation. She was brought to the emergency room and had x-ray and CAT scan which demonstrate d a right-sided superior and inferior pubic rami fractures. The patient was admitted to the floor for pain control and physical therapy. At this time, the patient reports pain to her right hip as well as pain of her left foot. She denies any other musculoskeletal complaints. Review of Systems: As above, otherwise negative. Past Medical History: Includes hypertension, hyperlipidemia, history of breast cancer, GERD and oste oporosis. Past Surgical History: Includes cholecystectomy, appendectomy, hysterectomy, right breast lumpectomy . Family History: Noncontributory. Social History: Denies tobacco, alcohol or drug use. Allergies: NO KNOWN DRUG ALLERGIES. Medications: Amlodipine, aspirin, gabapentin, omeprazole, pravastatin, ramipril. Physical Examination: General: No apparent distress. HEENT: Normocephalic, atraumatic. Neck: Supple. Cardiovascular: Brisk cap refill to all digits. Chest: Nonlabored breathing. Abdomen: Nondistended. Psychiatric: Responds to exam. Musculoskeletal: Bilateral upper extremities, functional range of motion without pain. No gross def ormities. No obvious dislocations. Right lower extremity, some pain with flexion of the right hip. No pain with internal or external rotation of the right hip. No tenderness to palpation of the knee , tibia or foot. Sensation grossly intact to the dorsal and plantar surface of the right foot. Posit boaz firing of EHL, FHL, gastrocsoleus complex, tibialis anterior. Left lower extremity, no pain with range of motion of the left hip, knee. Some mild tenderness to palpation over the lateral foot. Sh e is neurovascularly intact distally. Diagnostic Studies: X-ray and CAT scan demonstrates a right-sided superior and inferior pubic rami f racture with some . Assessment/plan: Ms. Santiago is a 79-year-old female with right-sided pelvic ring injury stable fracture pattern. Physical Therapy may be consulted. She can be weightbearing as tolerated w ith her bilateral lower extremities. We will obtain x-rays of her pelvis after she mobilizes. We wi ll also obtain . She may follow up in my clinic in 2 weeks . NAZIA/YOCASTA Voice ID: [id number] Report ID: [id number]
[2020-01-07] MEDS: ATORVASTATIN 10 MG TAB PO SCH (21:00)
[2020-01-07 21:56] VITALS: O2SAT 92
[2020-01-07 23:42] VITALS: BP 112/56; TEMP 98.7
== END 2020-01-07 23:50 | disposition home health service (06) | DRG 536 ==
LOC: ER 12:38 → ERHOLD 18:10 → 2ND 01-05 08:03
PROVIDERS: ADMIT Internal Medicine; ATTEND Internal Medicine
DX: S32.591A Other specified fracture of right pubis, initial encounter for closed fracture (principal); I10 Essential (primary) hypertension; K21.9 Gastro-esophageal reflux disease without esophagitis; E78.5 Hyperlipidemia, unspecified; Z85.3 Personal history of malignant neoplasm of breast; Z90.710 Acquired absence of both cervix and uterus; Z90.49 Acquired absence of other specified parts of digestive tract; Z11.59 Encounter for screening for other viral diseases; Z79.82 Long term (current) use of aspirin; Z79.899 Other long term (current) drug therapy; W01.0XXA Fall on same level from slipping, tripping and stumbling without subsequent striking against object, initial encounter
CPT/HCPCS: 36415; 51702; 72131; 72170; 72192; 80048; 80076; 81003; 81015; 85025; 85610; 93005; 96374; 96375; 97112; 97116; 97161; 97530; 99285; J1650; J2270; J3010; J7030; U0002

== ENCOUNTER 2020-02-15 11:40 | Emergency (ER) | payer OTHER ==
[2020-02-15] MEDS ORDERED: dexAMETHasone 10 MG/ML VIAL ONE (12:30)
[2020-02-15] MEDS ORDERED: MEPERIDINE HCL 50 MG/ML ONE (12:30)
--- NOTE | 2020-02-15 13:04 | RAD REPORT ---
EXAM DESCRIPTION: CT - Pelvis Wo Cont - 02/15/2020 12:48 pm CLINICAL HISTORY: left posterio rpelvic pain, recent pelvic fractures, nonope COMPARISON: Pelvis Wo Cont dated 01/04/2020 TECHNIQUE: Axial 2 millimeter thick images the pelvis were obtained with sagittal and coronal recons truction images generated and reviewed. FINDINGS: The hemorrhagic changes associated with previously detailed right-sided pelvic fractures h ave resolved. No new mass or hematoma. No persistent thickening or edema of the skeletal musculature. Partially filled urinary bladder shows no gross abnormality. Bowel loops show no acute or active fin ding. Lumbar spine degenerative changes are separately detailed. Comminuted fracture of the superior and inferior pubic rami at the pubic symphysis again noted. No si gnificant change in alignment or positioning of the fracture fragments. There is some bone resorption in the central portion of the fragments with new callus formation along the periphery of the fractur e. An inferior pubic ramus fracture is identified. This was not evident clearly on the prior examinat ion. However, there is callus formation present and very minimal 2 mm displacement. The presence of c allus would indicate a fracture was present but radiographically occult at the time of the January 03 im aging. Right sacral ala fracture and right ilium fractures at the right SI joint are present. These a re nondisplaced. Reactive bone changes are present indicating that these were likely present and radi ographically occult at the time of the January 03 study. Provided history indicates left-sided pelvic pain. No left-sided pelvic fracture. No acute left-side bony pelvis or left hip joint abnormality. Proximal left femur is intact. IMPRESSION: No abnormality of the left-side pelvis or left hip joint to explain the provided history of left-sided pelvic pain. Callus formation is present surrounding superior and inferior pubic rami fractures at pubic symphysis as well as at the right ischial tuberosity. These are fractures that occurred at the time of the Dec imaging. Right sacral ala and right ilium fractures adjacent to the SI joint also believed to be present but r adiographically occult at the time of the January 03 study. Hematoma changes have resolved since January 03 and no suspicious soft tissue finding.
--- NOTE | 2020-02-15 13:10 | RAD REPORT ---
EXAM DESCRIPTION: CT - Spine Lumbar Wo Con - 02/15/2020 12:46 pm CLINICAL HISTORY: LOWER BACK PAINleft hip pain, left lower extremity radiculopathy, breast cancer hi story COMPARISON: CT lumbar spine January 04, 2020 TECHNIQUE: Thin section axial imaging of the lumbar spine was performed. Sagittal and coronal recon struction images were generated and reviewed. All CT scans are performed using dose optimization technique as appropriate and may include automated exposure control or mA/KV adjustment according to patient size. FINDINGS: Lumbar bodies are normal in height and alignment. The lower 4 lumbar disc levels show loss in height. This is most pronounced at L5-S1. Degenerative gas is present in the lower 3 lumbar level s. No paraspinal mass or hematoma. Central canal detail is inherently limited. No disc herniation seen. Disc bulge at L3-4 has not caba ed. This is minimal and does not cause central spinal stenosis. L4-5 and L5-S1 disc bulge changes are also not clearly different. The L5-S1 disc bulge changes contact but do not displace the thecal sac and S1 nerve roots. Pattern i s not substantially different but could potentially result in a left lower extremity radiculopathy. Left-side L4-5 foraminal encroachment is present also potential source for left lower extremity pain. IMPRESSION: Lumbar spine examination shows no compression fracture or other acute finding since January 03 imaging. Left L4-5 foraminal disc bulge and facet hypertrophy could potentially cause left lower extremity rad iculopathy if no other sources identified. The L5-S1 disc bulge contacts the thecal sac and bilateral S1 nerve roots. This would also be a poten tial source for left lower extremity radicular symptoms.
--- NOTE | 2020-02-15 13:37 | EDPHYS ---
Physician Documentation [facility] Name: Autumn Santiago Age: 79 yrs Sex: Female : 1940 Arrival Date: 02/15/2020 Time: 11:44 Bed 20 Private MD: Zaira Catherine F ED Physician Scar Gautam HPI: 02/14 13:32 This 79 yrs old Female presents to ER via Wheelchair with complaints of pelvic rn pain/hip pain. 13:32 The patient or guardian reports pain. The complaints affect the left hip. Onset: The rn symptoms/episode began/occurred 1 week(s) ago. Modifying factors: the symptoms are aggravated by any movement. Severity of symptoms: At their worst the symptoms were mild, in the emergency department the symptoms are unchanged. The patient has not experienced similar symptoms in the past. Reports a couple of months ago fell and had right pelvic fractures, no surgery, is doing PT and healing well, now having left posterior pelvic/lower back pain, shoots down left thigh, no new injury, no bowel/bladder issues, no weakness. . Historical: - Allergies: 11:54 No Known Allergies; ll1 - PMHx: 11:54 Cancer, Breast; Hypertension; neuropathy; Osteoporosis; ll1 - PSHx: 11:54 Cholecystectomy; Appendectomy; Hysterectomy; lymphnodes removed from right breast; Knee ll1 surgery; - Immunization history:: Adult Immunizations up to date, Flu vaccine is up to date. - Social history:: Smoking status: Patient denies any tobacco usage or history of. - Family history:: not pertinent. - Hospitalizations: : The patient was recently seen at [facility]. ROS: 13:32 Constitutional: Negative for fever, chills, and weight loss, Eyes: Negative for injury, rn pain, redness, and discharge, Neck: Negative for injury, pain, and swelling, Cardiovascular: Negative for chest pain, palpitations, and edema, Respiratory: Negative for shortness of breath, cough, wheezing, and pleuritic chest pain, Abdomen/GI: Negative for abdominal pain, nausea, vomiting, diarrhea, and constipation, Back: + lower back pain MS/Extremity: + left lower back/hip/thigh pain Skin: Negative for injury, rash, and discoloration, Neuro: Negative for headache, weakness, numbness, tingling, and seizure. Exam: 13:32 Constitutional: This is a well developed, well nourished patient who is awake, alert, rn and in no acute distress. Abdomen/GI: soft, non-tender Back: No spinal tenderness. No costovertebral tenderness. Full range of motion. Skin: Warm, dry MS/ Extremity: Pulses equal, no cyanosis. Neurovascular intact. Full, normal range of motion. Equal circumference. Neuro: Awake and alert, GCS 15, oriented to person, place, time, and situation. Cranial nerves II-XII grossly intact. Motor strength 5/5 in all extremities. Sensory grossly intact. Cerebellar exam normal. Vital Signs: 11:53 BP 147 / 87; Pulse 87; Resp 17; Temp 98.7; Pulse Ox 99% ; Pain 10/10; ll1 13:00 BP 133 / 78; Pulse 60; Resp 15; Pulse Ox 96% ; jl7 MDM: 12:01 Patient medically screened. rn 13:32 Differential diagnosis: bursitis, arthritis, strain, radiculopathy. Data reviewed: rn vital signs, nurses notes, radiologic studies, CT scan, and as a result, I will discharge patient. Counseling: I had a detailed discussion with the patient and/or guardian regarding: the historical points, exam findings, and any diagnostic results supporting the discharge/admit diagnosis, radiology results, the need for outpatient follow up, to return to the emergency department if symptoms worsen or persist or if there are any questions or concerns that arise at home. Response to treatment: the patient's symptoms have mildly improved after treatment, and as a result, I will discharge patient. Special discussion: I discussed with the patient/guardian in detail that at this point there is no indication for admission to the hospital. It is understood, however, that if the symptoms persist or worsen the patient needs to return immediately for re-evaluation. ED course: NO acute findings on imaging, + a couple of areas seen can explain radiculopathy. . 02/14 12:13 Order name: CT Lumbar Spine Wo Con; Complete Time: 13:20 rn 02/14 12:13 Order name: CT Pelvis wo Cont; Complete Time: 13:20 rn 02/14 12:14 Order name: IV Start; Complete Time: 12:37 rn Administered Medications: 12:30 Drug: Demerol - Meperidine 12.5 mg Route: IVP; Site: right wrist; jl7 12:50 Follow up: Response: No adverse reaction; Pain is decreased jl7 12:32 Drug: Decadron - Dexamethasone 10 mg Route: IVP; Site: right wrist; jl7 13:00 Follow up: Response: No adverse reaction; Pain is decreased jl7 Disposition: 02/15/20 13:36 Discharged to Home. Impression: Radiculopathy, lumbosacral region. - Condition is Stable. - Discharge Instructions: Lumbosacral Radiculopathy. - Prescriptions for Medrol (Maikol) 4 mg Oral Tablets, Dose Pack - take 1 tablet by ORAL route as directed - follow package instructions; 1 packet. Cyclobenzaprine 5 mg Oral Tablet - take 1 tablet by ORAL route 3 times per day As needed; 15 tablet. - Medication Reconciliation Form, Thank You Letter, Antibiotic Education, Prescription Opioid Use form. - Follow up: Zaira Catherine MD; When: As needed; Reason: Recheck today's complaints, Re-evaluation by your physician. - Problem is an ongoing problem. - Symptoms have improved. Signatures: Dispatcher [employer] EDMS Scar Gautam MD MD rn Leal, Jahala, RN RN jl7 Jin Cueva RN RN ll1 Corrections: (The following items were deleted from the chart) 14:24 13:36 02/15/2020 13:36 Discharged to Home. Impression: Radiculopathy, lumbosacral jl7 region. Condition is Stable. Forms are Medication Reconciliation Form, Thank You Letter, Antibiotic Education, Prescription Opioid Use. Follow up: Zaira Catherine; When: As needed; Reason: Recheck today's complaints, Re-evaluation by your physician. Problem is an ongoing problem. Symptoms have improved. rn
--- NOTE | 2020-02-15 13:37 | ER ---
Nurse's Notes [facility] Name: Autumn Santiago Age: 79 yrs Sex: Female : 1940 Arrival Date: 02/15/2020 Time: 11:44 Bed 20 Private MD: Zaira Catherine F Diagnosis: Radiculopathy, lumbosacral region Presentation: 02/14 11:53 Chief complaint: Patient states: Left hip pain for [address] Fletcher sent ll1 her in for eval. Coronavirus screen: Client denies travel out of the [place] in the last 14 days. At this time, the client does not indicate any symptoms associated with coronavirus-19. Ebola Screen: Patient denies travel to an Ebola-affected area in the 21 days before illness onset. Initial Sepsis Screen: Does the patient meet any 2 criteria? No. Patient's initial sepsis screen is negative. Risk Assessment: Do you want to hurt yourself or someone else? Patient reports no desire to harm self or others. Onset of symptoms was February 01, 2020. 11:53 Method Of Arrival: Wheelchair ll1 11:53 Acuity: MEME 3 ll1 Historical: - Allergies: 11:54 No Known Allergies; ll1 - PMHx: 11:54 Cancer, Breast; Hypertension; neuropathy; Osteoporosis; ll1 - PSHx: 11:54 Cholecystectomy; Appendectomy; Hysterectomy; lymphnodes removed from right breast; Knee ll1 surgery; - Immunization history:: Adult Immunizations up to date, Flu vaccine is up to date. - Social history:: Smoking status: Patient denies any tobacco usage or history of. - Family history:: not pertinent. - Hospitalizations: : The patient was recently seen at [facility]. Screenin:00 Abuse screen: Denies threats or abuse. Denies injuries from another. Nutritional jl7 screening: No deficits noted. Tuberculosis screening: No symptoms or risk factors identified. Fall Risk IV access (20 points). Total Harris Fall Scale indicates No Risk (0-24 pts). Assessment: 12:00 General: Behavior is calm, cooperative, appropriate for age. Pain: Complains of pain in jl7 left hip Pain currently is 10 out of 10 on a pain scale. Neuro: Level of Consciousness is awake, alert, obeys commands, Oriented to person, place, time, situation. Cardiovascular: Patient's skin is warm and dry. Respiratory: Airway is patent Respiratory effort is even, unlabored, Respiratory pattern is regular, symmetrical. Derm: Skin is pink, warm \T\ dry. 13:00 Reassessment: Patient appears in no apparent distress at this time. Patient and/or jl7 family updated on plan of care and expected duration. Pain level reassessed. Patient is alert, oriented x 3, equal unlabored respirations, skin warm/dry/pink. Vital Signs: 11:53 BP 147 / 87; Pulse 87; Resp 17; Temp 98.7; Pulse Ox 99% ; Pain 10/10; ll1 13:00 BP 133 / 78; Pulse 60; Resp 15; Pulse Ox 96% ; jl7 ED Course: 11:44 Patient arrived in ED. mr 11:44 Zaira Catherine MD is Private Physician. mr 11:54 Triage completed. ll1 11:55 Arm band placed on Patient placed in an exam room, on a stretcher. ll1 12:00 Patient has correct armband on for positive identification. Bed in low position. Call jl7 light in reach. Side rails up X2. Pulse ox on. NIBP on. Warm blanket given. 12:00 Inserted saline lock: 20 gauge in right wrist, using aseptic technique. jl7 12:01 Pradip George, JEFFY is Primary Nurse. jl7 12:01 Scar Gautam MD is Attending Physician. rn 12:46 CT Lumbar Spine Wo Con In Process Unspecified. EDMS 12:48 CT Pelvis wo Cont In Process Unspecified. EDMS 13:36 Zaira Catherine MD is Referral Physician. rn 14:00 No provider procedures requiring assistance completed. IV discontinued, intact, jl7 bleeding controlled, No redness/swelling at site. Pressure dressing applied. Administered Medications: 12:30 Drug: Demerol - Meperidine 12.5 mg Route: IVP; Site: right wrist; jl7 12:50 Follow up: Response: No adverse reaction; Pain is decreased jl7 12:32 Drug: Decadron - Dexamethasone 10 mg Route: IVP; Site: right wrist; jl7 13:00 Follow up: Response: No adverse reaction; Pain is decreased jl7 Outcome: 13:36 Discharge ordered by . rn 14:00 Discharged to home via wheelchair, with family. jl7 14:00 Condition: stable 14:00 Discharge instructions given to patient, Instructed on discharge instructions, follow up and referral plans. medication usage, Demonstrated understanding of instructions, follow-up care, medications, Prescriptions given X 2. 14:00 Patient left the ED. jl7 Signatures: Dispatcher [employer] [facility] Kristina MedinaScar MD MD rn Leal, Jahala, RN RN jl7 Jin Cueva RN RN ll1 Corrections: (The following items were deleted from the chart) 14:24 14:23 Condition: stable jl7 jl7 14:24 14:23 Discharged to home via wheelchair, with family, jl7 jl7 14:24 14:23 Discharge instructions given to patient, Instructed on discharge instructions, jl7 follow up and referral plans. medication usage, Demonstrated understanding of instructions, follow-up care, medications, Prescriptions given X 2, jl7 14:24 14:24 Patient left the ED. jl7 jl7
[2020-02-15 20:20] VITALS: TEMP 98.7
[2020-02-15 20:21] VITALS: BP 133/78; O2SAT 96
== END 2020-02-15 14:24 | disposition home or self-care (01) ==
LOC: ER 11:40
DX: M54.17 Radiculopathy, lumbosacral region (principal); I10 Essential (primary) hypertension; Z85.3 Personal history of malignant neoplasm of breast
CPT/HCPCS: 72131; 72192; 96375; 96374; 99284; J1100; J2175

== ENCOUNTER 2020-03-16 15:32 | Emergency (ER) | payer OTHER ==
--- NOTE | 2020-03-16 16:43 | RAD REPORT ---
EXAM DESCRIPTION: CT - Pelvis Wo Cont - 03/16/2020 4:21 pm CLINICAL HISTORY: Pelvic pain status post fall COMPARISON: February 2020 TECHNIQUE: Computed axial tomography of the pelvis was obtained. Coronal and sagittal reconstruction performed All CT scans are performed using dose optimization technique as appropriate and may include automated exposure control or mA/KV adjustment according to patient size. FINDINGS: Development of a mildly to moderately displaced left superior pubic ramus fracture Small surrounding hematoma. Small hematoma left obturator internus muscle Development of a mildly displaced left inferior pubic ramus fracture. Callus formation is present about subacute right ischium, right superior and right inferior pubic rai i fractures Development of left sacral insufficiency fracture. Subacute right ilium and right sacral fracture again demonstrated No dislocation IMPRESSION: Development of a mildly to moderately displaced comminuted left superior pubic ramus fra cture Development of a mildly displaced left inferior pubic ramus fracture Development of a left sacral insufficiency fracture
--- NOTE | 2020-03-16 17:32 | ER ---
Nurse's Notes [facility] Name: Autumn Santiago Age: 79 yrs Sex: Female : 1940 Arrival Date: 03/16/2020 Time: 15:34 Bed 15 Private MD: Zaira Catherine F Diagnosis: Left superior and inferior pubic ramus fracture Presentation: 03/16 15:39 Chief complaint: Patient states: "I broke my pelvis and I do physical therapy and aa5 during the exercises I slid and went all the way to the ground on my butt and my groin is hurting". Coronavirus screen: Client denies travel out of the [place] in the last 14 days. At this time, the client does not indicate any symptoms associated with coronavirus-19. Ebola Screen: Patient negative for fever greater than or equal to 101.5 degrees Fahrenheit, and additional compatible Ebola Virus Disease symptoms. Initial Sepsis Screen: Does the patient meet any 2 criteria? No. Patient's initial sepsis screen is negative. Does the patient have a suspected source of infection? No. Patient's initial sepsis screen is negative. Risk Assessment: Do you want to hurt yourself or someone else? Patient reports no desire to harm self or others. Onset of symptoms was March 16, 2020 at 13:30. 15:39 Acuity: MEME 4 aa5 15:39 Method Of Arrival: Wheelchair aa5 Historical: - Allergies: 15:41 No Known Allergies; aa5 - PMHx: 15:41 Cancer, Breast; Hypertension; neuropathy; Osteoporosis; aa5 - PSHx: 15:41 Cholecystectomy; Appendectomy; Hysterectomy; lymphnodes removed from right breast; Knee aa5 surgery; - Immunization history:: Adult Immunizations unknown. - Social history:: Smoking status: Patient denies any tobacco usage or history of. Screenin:45 Abuse screen: Denies threats or abuse. Denies injuries from another. Nutritional ca1 screening: No deficits noted. Tuberculosis screening: No symptoms or risk factors identified. Fall Risk Fall in past 12 months (25 points). Ambulatory Aid- Crutches/Cane/Walker (15 pts). Total Harris Fall Scale indicates Low Risk Score (25-44 pts). Fall prevention measures have been instituted. Side Rails Up X 2 As available Patient and Family Educated on Fall Prevention Program and strategies. Assessment: 15:45 General: Appears in no apparent distress. comfortable, Behavior is calm, cooperative, ca1 appropriate for age. Pain: Complains of pain in left inguinal area and left femoral area Pain currently is 8 out of 10 on a pain scale. Pain: Aggravated by repositioning, weight bearing. Neuro: Level of Consciousness is awake, alert, obeys commands, Oriented to person, place, time, situation. Derm: Skin is intact, is healthy with good turgor, Skin is pink, warm \\T\\ dry. Musculoskeletal: Circulation, motion, and sensation intact. Capillary refill < 3 seconds. 16:59 Reassessment: Patient appears in no apparent distress at this time. Patient and/or ca1 family updated on plan of care and expected duration. Pain level reassessed. Patient is alert, oriented x 3, equal unlabored respirations, skin warm/dry/pink. Vital Signs: 15:39 BP 132 / 76; Pulse 87; Resp 16 S; Temp 98.9(O); Pulse Ox 98% on R/A; aa5 16:50 BP 147 / 66; Pulse 72; Resp 15 S; Pulse Ox 98% on R/A; ca1 ED Course: 15:34 Patient arrived in ED. ag5 15:34 Zaira Catherine MD is Private Physician. ag5 15:39 Arm band placed on. aa5 15:41 Triage completed. aa5 15:44 Sary Austin, RN is Primary Nurse. ca1 15:45 Patient has correct armband on for positive identification. Bed in low position. Call ca1 light in reach. Side rails up X2. Pulse ox on. NIBP on. Warm blanket given. 15:48 Rosalee Amanda FNP-C is PHCP. kb 15:48 Scar Gautam MD is Attending Physician. kb 16:18 No provider procedures requiring assistance completed. Patient did not have IV access ca1 during this emergency room visit. 16:21 CT Pelvis wo Cont In Process Unspecified. EDMS 17:30 Zaira Catherine MD is Referral Physician. kb Administered Medications: No medications were administered Outcome: 17:32 Discharge ordered by . kb 18:03 Discharged to home via wheelchair, with family. iw 18:03 Condition: good 18:03 Discharge instructions given to patient, family, Instructed on discharge instructions, follow up and referral plans. Demonstrated understanding of instructions, follow-up care. 18:03 Patient left the ED. iw Signatures: Dispatcher [employer] Rosalee Mccallum, CHRIS-Juan PEREZ-Carmenza Phillips, RN RN Kathy Bojorquez RN RN aa5 Sary Austin RN RN Masood Mustafa ag5
--- NOTE | 2020-03-16 17:32 | EDPHYS ---
Physician Documentation [facility] Name: Autumn Santiago Age: 79 yrs Sex: Female : 1940 Arrival Date: 03/16/2020 Time: 15:34 Bed 15 Private MD: Zaira Catherine F ED Physician Scar Gautam HPI: 03/16 16:31 This 79 yrs old Female presents to ER via Wheelchair with complaints of Pelvic kb Pain. 16:31 The patient or guardian reports pain. that occurred at home, sustained from a fall, kb There is no obvious deformity, The patient is able to ambulate with assistance. The patient is able to bear partial body weight. The complaints affect the pelvis. Onset: The symptoms/episode began/occurred just prior to arrival. Associated signs and symptoms: Loss of consciousness: the patient experienced no loss of consciousness, Pertinent positives: None. Severity of symptoms: At their worst the symptoms were moderate, in the emergency department the symptoms have improved. The patient has not experienced similar symptoms in the past. The patient has not recently seen a physician. Pt reports she was trying to stand up and slid to the ground while doing PT. STates she had a pelvic fracture on the right side in December and is doing PT for that. States this time, the left side of her pelvis is hurting so she came to make sure it wasn't fractured. Pt took tramadol captain/check airman and said that resolved her pain. States she was able to ambulate with a walker at home. Historical: - Allergies: 15:41 No Known Allergies; aa5 - PMHx: 15:41 Cancer, Breast; Hypertension; neuropathy; Osteoporosis; aa5 - PSHx: 15:41 Cholecystectomy; Appendectomy; Hysterectomy; lymphnodes removed from right breast; Knee aa5 surgery; - Immunization history:: Adult Immunizations unknown. - Social history:: Smoking status: Patient denies any tobacco usage or history of. ROS: 16:29 Constitutional: Negative for fever, chills, and weight loss, Cardiovascular: Negative kb for chest pain, palpitations, and edema, Respiratory: Negative for shortness of breath, cough, wheezing, and pleuritic chest pain, Abdomen/GI: Negative for abdominal pain, nausea, vomiting, diarrhea, and constipation, Skin: Negative for injury, rash, and discoloration, Neuro: Negative for headache, weakness, numbness, tingling, and seizure. 16:29 MS/extremity: Positive for pain, of the left femoral area and left inguinal area. Exam: 16:29 Constitutional: This is a well developed, well nourished patient who is awake, alert, kb and in no acute distress. Head/Face: Normocephalic, atraumatic. Chest/axilla: Normal chest wall appearance and motion. Nontender with no deformity. No lesions are appreciated. Cardiovascular: Regular rate and rhythm with a normal S1 and S2. No gallops, murmurs, or rubs. Normal PMI, no JVD. No pulse deficits. Respiratory: Lungs have equal breath sounds bilaterally, clear to auscultation and percussion. No rales, rhonchi or wheezes noted. No increased work of breathing, no retractions or nasal flaring. Abdomen/GI: Soft, non-tender, with normal bowel sounds. No distension or tympany. No guarding or rebound. No evidence of tenderness throughout. Back: No spinal tenderness. No costovertebral tenderness. Full range of motion. Skin: Warm, dry with normal turgor. Normal color with no rashes, no lesions, and no evidence of cellulitis. MS/ Extremity: Pulses equal, no cyanosis. Neurovascular intact. Full, normal range of motion. Neuro: Awake and alert, GCS 15, oriented to person, place, time, and situation. Cranial nerves II-XII grossly intact. Motor strength 5/5 in all extremities. Sensory grossly intact. Cerebellar exam normal. Normal gait. Vital Signs: 15:39 BP 132 / 76; Pulse 87; Resp 16 S; Temp 98.9(O); Pulse Ox 98% on R/A; aa5 16:50 BP 147 / 66; Pulse 72; Resp 15 S; Pulse Ox 98% on R/A; ca1 MDM: 15:48 Patient medically screened. kb 16:30 Data reviewed: vital signs, nurses notes. Data interpreted: Pulse oximetry: on room air kb is 98 %. Interpretation: normal. 17:28 Counseling: I had a detailed discussion with the patient and/or guardian regarding: the kb historical points, exam findings, and any diagnostic results supporting the discharge/admit diagnosis, radiology results, the need for outpatient follow up, a orthopedic surgeon, to return to the emergency department if symptoms worsen or persist or if there are any questions or concerns that arise at home. ED course: Discussed findings with Dr Gautam. Recommends outpatient treatment. Pt agrees with plan of care. Has tramadol at home for pain. Pt has PT coming to the house twice a week currently. Pt would like to follow up with Dr Catherine before seeing ortho.. 03/16 16:02 Order name: CT Pelvis wo Cont; Complete Time: 16:49 kb Administered Medications: No medications were administered Disposition: 18:06 Co-signature as Attending Physician, Scar Gautam MD. rn Disposition: 03/16/20 17:32 Discharged to Home. Impression: Left superior and inferior pubic ramus fracture. - Condition is Stable. - Discharge Instructions: Simple Pelvic Fracture, Adult. - Medication Reconciliation Form, Thank You Letter, Antibiotic Education, Prescription Opioid Use form. - Follow up: Emergency Department; When: As needed; Reason: Worsening of condition. Follow up: Zaira Catherine MD; When: 2 - 3 days; Reason: Recheck today's complaints, Continuance of care, Re-evaluation by your physician. Signatures: Dispatcher [employer] EDMS Rosalee Amanda, MUD ANALYSIS WELL LOGGING OPERATOR-C MUD ANALYSIS WELL LOGGING OPERATOR-Ckb Carmenza Seaman RN RN iw Nieto, Roman, MD MD rn Calderon, Audri, RN RN aa5 Corrections: (The following items were deleted from the chart) 16:55 16:31 Pt reports she was trying to stand up and slid to the ground while doing PT. kb STates she had a pelvic fracture on the right side in December and is doing PT for that. States this time, the left side of her pelvis is hurting so she came to make sure it wasn't fractured. kb 18:03 17:32 03/16/2020 17:32 Discharged to Home. Impression: Left superior and inferior pubic iw ramus fracture. Condition is Stable. Forms are Medication Reconciliation Form, Thank You Letter, Antibiotic Education, Prescription Opioid Use. Follow up: Emergency Department; When: As needed; Reason: Worsening of condition. Follow up: Zaira Catherine; When: 2 - 3 days; Reason: Recheck today's complaints, Continuance of care, Re-evaluation by your physician. kb
[2020-03-16 18:51] VITALS: TEMP 98.9; O2SAT 98
[2020-03-16 18:52] VITALS: BP 147/66
== END 2020-03-16 18:03 | disposition home or self-care (01) ==
LOC: ER 15:32
DX: S32.512A Fracture of superior rim of left pubis, initial encounter for closed fracture (principal); S32.592A Other specified fracture of left pubis, initial encounter for closed fracture; W19.XXXA Unspecified fall, initial encounter; Y93.89 Activity, other specified; Y92.009 Unspecified place in unspecified non-institutional (private) residence as the place of occurrence of the external cause; I10 Essential (primary) hypertension; Z85.3 Personal history of malignant neoplasm of breast
CPT/HCPCS: 72192; 99283

== ENCOUNTER 2020-06-13 09:55 | Emergency (ER) | payer OTHER ==
--- OUTSIDE RECORDS SUMMARY | 2020-06-13 10:05 | XMS REPORT ---
:1940 Author Organization [facility] Address [address] [place] [address] Care Team Providers Name Role Phone Jessica Boswell Unavailable [phone] PROBLEMS No Information ALLERGIES No Known Allergies ENCOUNTERS from 1940 to 2020-05-23 Encounter Location Date Provider Diagnosis [place] [facility] [address] [place], Jessica Boswell Specialty/[place] [address] IMMUNIZATIONS No Information SOCIAL HISTORY Tobacco Use: Social History Observation Description Date Details (start date - stop date) Never Smoker Sex Assigned At : Social History Observation Description Sex Assigned At Unknown Tobacco Use/Smoking Question Answer Notes Are you a never smoker REASON FOR REFERRAL No Information VITAL SIGNS No information MEDICATIONS Medication SIG (Take, Route, Notes Start Date End Date Status Frequency, Duration) Caltrate 600+D 600-400 1 tablet after a meal Active MG-UNIT Orally Once a day Pravastatin Sodium 40 MG 1 tablet Orally Once a Active day Amlodipine Besylate 5 MG 1 tablet Orally Once a Active day Trimethoprim 100 MG 1 tablet Orally Once a Active day for 90 Cymbalta 30 MG 1 capsule Orally Once a Active day for 30 day(s) Vagifem 10 MCG 1 tablet Vaginal Two Sep, Active times a Week for 90 days Ramipril 5 MG 1 capsule Orally Once a Active day Probiotic - Orally Active Aspirin 81 MG 1 tablet Orally Once a Active day Alendronate Sodium 35 MG 1 tablet Orally Active Estrace 0.1 MG/GM Vaginal Active Estradiol 0.1 MG/GM as directed Vaginal Two Mar, Active times a Week for 90 days PROCEDURES No Information RESULTS No Results REASON FOR VISIT No Information MEDICAL (GENERAL) HISTORY Type Description Date Surgical History Gallbladder Surgical History Appendix Surgical History Hysterectomy Surgical History Colonoscopy Goals Section No Information Health Concerns No Information MEDICAL EQUIPMENT No Information MENTAL STATUS No Information FUNCTIONAL STATUS No Information ASSESSMENTS No Information PLAN OF TREATMENT No Information Insurance Providers Payer Name Payer Payer Insured Name Patient Coverage Covera End Address Phone Relationship to Start Date Romulo e Insured [employer] [address] [address] [phone] [place] [phone]
--- OUTSIDE RECORDS SUMMARY | 2020-06-13 10:05 | XMS REPORT | Continuity of Care Document ---
:1940 Author Organization [facility] t Address [address] [place] [address] Care Team Providers Name Role Phone Unavailable Unavailable Unavailable Problems This patient has no known problems. Allergies, Adverse Reactions, Alerts This patient has no known allergies or adverse reactions. Medications This patient has no known medications. Procedures This patient has no known procedures. Encounters Start End Encounter Admission Attending Care Care Encounter Source Date/Time Date/Time Type Type Clinicians Facility Department ID 2020-05-30 2020-05-30 Outpatient [facility] [id number] [facility] [address] 00:00:00 00:00:00 [facility] 2020-05-23 2020-05-23 Outpatient [facility] [id number] [facility] 00:[facility]00 [facility] ent Clinics Results This patient has no known results.
--- OUTSIDE RECORDS SUMMARY | 2020-06-13 10:05 | XMS REPORT ---
:1940 Author Organization [facility] Address [address] [facility] [address] [place] [address] Care Team Providers Name Role Phone Jessica Boswell Unavailable [phone] PROBLEMS No Information ALLERGIES No Known Allergies ENCOUNTERS from 1940 to 2020-05-30 Encounter Location Date Provider Diagnosis [facility] [facility] [place], Jessica Boswell Recurren t urinary Specialty/Urology [address], [place] [address] N39.0 IMMUNIZATIONS No Information SOCIAL HISTORY Tobacco Use: Social History Observation Description Date Details (start date - stop date) Never Smoker Sex Assigned At : Social History Observation Description Sex Assigned At Unknown Tobacco Use/Smoking Question Answer Notes Are you a never smoker REASON FOR REFERRAL No Information VITAL SIGNS Height 65 in May, Weight 140.1 lbs May, Temperature 97.5 degrees Fahrenheit May, BMI 23.31 kg/m2 May, Oximetry 95 % May, Blood pressure systolic 133 mm Hg May, Blood pressure diastolic 65 mm Hg May, MEDICATIONS Medication SIG (Take, Route, Notes Start Date End Date Status Frequency, Duration) Estradiol 0.1 MG/GM as directed Vaginal Two Mar, Active times a Week for 90 days Trimethoprim 100 mg 1 tablet Orally Once a Active day for 90 days Estrace 0.1 MG/GM Vaginal Active Alendronate Sodium 35 MG 1 tablet Orally Active Amlodipine Besylate 5 MG 1 tablet Orally Once a Active day Pravastatin Sodium 40 MG 1 tablet Orally Once a Active day Ramipril 5 MG 1 capsule Orally Once a Active day Vagifem 10 MCG 1 tablet Vaginal Two Sep, Active times a Week for 90 days Aspirin 81 MG 1 tablet Orally Once a Active day Cymbalta 30 MG 1 capsule Orally Once a Active day for 30 day(s) Trimethoprim 100 MG 1 tablet Orally Once a Active day for 90 Caltrate 600+D 600-400 1 tablet after a meal Active MG-UNIT Orally Once a day Probiotic - Orally Active PROCEDURES No Information RESULTS No Results REASON FOR VISIT recurrent uti MEDICAL (GENERAL) HISTORY Type Description Date Surgical History Gallbladder Surgical History Appendix Surgical History Hysterectomy Surgical History Colonoscopy Goals Section No Information Health Concerns No Information MEDICAL EQUIPMENT No Information MENTAL STATUS No Information FUNCTIONAL STATUS No Information ASSESSMENTS Encounter Date Diagnosis Assessment Notes Treatment Notes Treatm ent Clinical Notes May, Recurrent Urine reflex, urinary tract Avoid constipa tion, infection uses stool soft ener (ICD-10 - N39.0) COntinue Va gifem, prefers this ov er the cream Continue daily suppression, Trimethoprim 10 0 mg po daily Consider surger y as rec. by Dr. Bandar davis , understandabl e to take care of br east cancer right no w Restrict fluids 2-3 hours before be dtime AUASS 0, QOL jordan ppy ROV in 6 mo. or sooner prn Urin e reflex, PLAN OF TREATMENT Medication Medication Name Sig Start Date Stop Date Trimethoprim 100 mg 1 tablet Orally Once a day for 90 days Treatment Notes Assessment Notes Clinical Notes Recurrent urinary tract infection Urine reflex,Avoid constipation, uses stool softenerCOntinue Vag ifem, prefers this over the creamContinue da rei suppression, Trimethoprim 100 mg po dailyConsider surgery as rec. by Dr. Hakan wang , understandable to take care of breast cancer right nowRestrict fluids 2-3 hours bef ore bedtimeAUASS 0, QOL happyROV in 6 mo. or sooner prn Urine reflex, Treatment Notes Test Name Order Date URINALYSIS, COMPLETE W/REFLEX TO CULTURE 2020-05-30 URINALYSIS AUTO W/O SCOPE (70010) 2020-05-30 Next Appt Details 6 Months Reason:urine Follow Up:6 Monthsurine Insurance Providers Payer Name Payer Payer Insured Name Patient Coverage Covera ge End Address Phone Relationship to Start Date Romulo e Insured [employer] [address] [address] [phone] Pamela,[place] 79 [phone]
--- NOTE | 2020-06-13 10:42 | ER ---
Nurse's Notes [facility] Name: Autumn Santiago Age: 79 yrs Sex: Female : 1940 Arrival Date: 06/13/2020 Time: 09:57 Bed 14 Private MD: Diagnosis: Pain in left shoulder Presentation: 06/13 10:05 Chief complaint: Patient states: i have some papers from [place], i was doing exercises tw2 with my physical therapy on my LEFT shoulder and left arm, i was doing exercises with my therapist and i held some chairs and my LEFT arm and Shoulder has been hurting since then, i i went to [place] in April and have been hurting since. i told my dr. who is dr. bill about an MRI and he was in a hurry so he didn't order it, but at night or when its cold it hurts me, so if they dont do an MRI i dont want a bill. Coronavirus screen: At this time, the client does not indicate any symptoms associated with coronavirus-19. Ebola Screen: Patient denies travel to an Ebola-affected area in the 21 days before illness onset. Initial Sepsis Screen: Does the patient meet any 2 criteria? No. Patient's initial sepsis screen is negative. Does the patient have a suspected source of infection? No. Patient's initial sepsis screen is negative. Risk Assessment: Do you want to hurt yourself or someone else? Patient reports no desire to harm self or others. Onset of symptoms was June 13, 2020. 10:05 Method Of Arrival: Ambulatory tw2 10:05 Acuity: MEME 4 tw2 Triage Assessment: 10:08 General: Appears in no apparent distress. slender, well groomed, Behavior is calm, tw2 cooperative, appropriate for age. Pain: Complains of pain in left arm and left shoulder. Historical: - Allergies: 10:08 No Known Allergies; tw2 - Home Meds: 10:08 amlodipine 5 mg tab 1 tab once daily [Active]; anastrozole 1 mg Oral tab 1 tab once tw2 daily for Hormone Receptor Positive Breast Cancer [Active]; aspirin 81 mg Oral chew [Active]; gabapentin 300 mg Oral cap 1 cap twice daily for Neuropathic Pain [Active]; omeprazole 20 mg Oral cpDR 1 cap once daily for gastric ulcer [Active]; - PMHx: 10:08 Cancer, Breast; Hypertension; neuropathy; Osteoporosis; tw2 - PSHx: 10:08 Cholecystectomy; Appendectomy; lymphnodes removed from right breast; Hysterectomy; Knee tw2 surgery; - Immunization history:: Adult Immunizations. - Social history:: Smoking status: . Screenin:09 Abuse screen: Denies threats or abuse. Denies injuries from another. Nutritional bp screening: No deficits noted. Tuberculosis screening: No symptoms or risk factors identified. Fall Risk None identified. Assessment: 10:09 General: SEE TRIAGE NOTE. 79HF P/W 3 MONTHS NONTRAUMATIC LUE PAIN AFTER PHYSICAL bp THERAPY. 10:45 Reassessment: PT MSE BY PROVIDER. DECLINED TO STAY. bp Vital Signs: 10:05 BP 138 / 76; Pulse 66; Resp 17; Temp 98.3(TE); Pulse Ox 100% on R/A; Weight 64.41 kg tw2 (R); Height 5 ft. 7 in. (170.18 cm) (R); Pain 6/10; 10:05 Body Mass Index 22.24 (64.41 kg, 170.18 cm) tw2 ED Course: 09:57 Patient arrived in ED. ag3 10:07 Triage completed. tw2 10:08 Arm band placed on. tw2 10:09 Jean Mohr, JEFYF is Primary Nurse. bp 10:09 Patient has correct armband on for positive identification. Bed in low position. Call bp light in reach. Side rails up X2. 10:26 Albin Bolton PA is PHCP. cp 10:26 Albin Fernandes MD is Attending Physician. cp 10:41 Lyndon Calle MD is Referral Physician. cp 10:45 No provider procedures requiring assistance completed. Patient did not have IV access bp during this emergency room visit. Administered Medications: No medications were administered Outcome: 10:42 Discharge ordered by MD. cp 10:45 Discharged to home ambulatory. bp 10:45 Condition: stable 10:45 Discharge instructions given to patient, Instructed on follow up and referral plans. Demonstrated understanding of instructions, follow-up care. 10:46 Patient left the ED. bp Signatures: Albin Bolton PA PA cp Ansley Lux RN RN tw2 Jean Mohr RN RN bp Eleni Rosario ag3 Corrections: (The following items were deleted from the chart) 10:12 10:05 Chief complaint: Patient states: i have some papers from [place], i was doing tw2 exercises with my physical therapy on my LEFT shoulder and left arm, i was doing exercises with my therapist and i held some chairs and my LEFT arm and Shoulder has been hurting since then, i i went to [place] in April and have been hurting since. i told my drGerald who is dr. bill and he was in a hurry so he didn't order it, and at night or when its cold it hurts me. tw2
--- NOTE | 2020-06-13 10:42 | EDPHYS ---
Physician Documentation [facility] Name: Autumn Santiago Age: 79 yrs Sex: Female : 1940 Arrival Date: 06/13/2020 Time: 09:57 Bed 14 Private MD: Albin Nettles HPI: 06/13 10:33 This 79 yrs old Female presents to ER via Ambulatory with complaints of Left cp Shoulder Pain. 10:33 The patient or guardian complains of pain. The complaints affect the left shoulder. cp Onset: The symptoms/episode began/occurred 2 month(s) ago. Patient reports she sustained a fall in April of 2020 resulting in injury to left shoulder. Went to [place] and had xrays performed . Patient continues to have pain and requests MRI of left shoulder today. Historical: - Allergies: 10:08 No Known Allergies; tw2 - Home Meds: 10:08 amlodipine 5 mg tab 1 tab once daily [Active]; anastrozole 1 mg Oral tab 1 tab once tw2 daily for Hormone Receptor Positive Breast Cancer [Active]; aspirin 81 mg Oral chew [Active]; gabapentin 300 mg Oral cap 1 cap twice daily for Neuropathic Pain [Active]; omeprazole 20 mg Oral cpDR 1 cap once daily for gastric ulcer [Active]; - PMHx: 10:08 Cancer, Breast; Hypertension; neuropathy; Osteoporosis; tw2 - PSHx: 10:08 Cholecystectomy; Appendectomy; lymphnodes removed from right breast; Hysterectomy; Knee tw2 surgery; - Immunization history:: Adult Immunizations. - Social history:: Smoking status: . ROS: 10:35 MS/extremity: Positive for pain, of the left shoulder. cp 10:35 Neck: Negative for pain with movement, pain at rest, stiffness. cp 10:35 Cardiovascular: Negative for chest pain. 10:35 Respiratory: Negative for cough, shortness of breath, wheezing. 10:35 All other systems are negative. Exam: 10:40 Constitutional: The patient appears in no acute distress, alert, awake, cp non-diaphoretic, well developed, well nourished. 10:40 Cardiovascular: Rate: normal. Vital Signs: 10:05 BP 138 / 76; Pulse 66; Resp 17; Temp 98.3(TE); Pulse Ox 100% on R/A; Weight 64.41 kg tw2 (R); Height 5 ft. 7 in. (170.18 cm) (R); Pain 610; 10:05 Body Mass Index 22.24 (64.41 kg, 170.18 cm) tw2 MDM: 10:26 Patient medically screened. cp 10:41 Data reviewed: vital signs, nurses notes. cp Administered Medications: No medications were administered Disposition: 10:41 Left Shoulder Pain. cp 11:00 Chart complete. cp 06/14 06:52 Co-signature as Attending Physician, Albin Fernandes MD I agree with the assessment and [facility] plan of care. Disposition: 06/13/20 10:42 Discharged to Home as Medical Screen. Impression: Pain in left shoulder. - Condition is Stable. - Discharge Instructions: Shoulder Pain, Shoulder Range of Motion Exercises. - Medication Reconciliation Form, Thank You Letter, Antibiotic Education, Prescription Opioid Use form. - Follow up: Lyndon Calle MD; When: 2 - 3 days; Reason: Recheck today's complaints. - Problem is an ongoing problem. - Symptoms are unchanged. Signatures: Albin Fernandes MD MD cha Page, Corey, PA PA cp Ansley Lux, RN RN tw2 Jean Mohr, RN RN bp Corrections: (The following items were deleted from the chart) 06/13 10:46 10:42 06/13/2020 10:42 Discharged to Home as Medical Screen. Impression: Pain in left bp shoulder. Condition is Stable. Forms are Medication Reconciliation Form, Thank You Letter, Antibiotic Education, Prescription Opioid Use. Follow up: Lyndon Calle; When: 2 - 3 days; Reason: Recheck today's complaints. Problem is an ongoing problem. Symptoms are unchanged. cp
[2020-06-13 12:10] VITALS: BP 138/76; TEMP 98.3; O2SAT 100
== END 2020-06-13 10:46 | disposition home or self-care (01) ==
LOC: ER 09:55
DX: M25.512 Pain in left shoulder (principal); I10 Essential (primary) hypertension; Z79.82 Long term (current) use of aspirin; Z85.3 Personal history of malignant neoplasm of breast
CPT/HCPCS: 99281

== ENCOUNTER 2020-07-25 19:02 | Emergency (ER) | payer OTHER ==
[2020-07-25] MEDS ORDERED: HYDROCODONE/APAP 5/325 MG TAB ONE ×2 (20:37→21:44)
[2020-07-25] MEDS ORDERED: IBUPROFEN 200 MG TAB PO ONE (20:38)
--- NOTE | 2020-07-25 20:54 | ER ---
Nurse's Notes [facility] Name: Autumn Santiago Age: 79 yrs Sex: Female : 1940 Arrival Date: 07/25/2020 Time: 19:06 Bed 9 Private MD: Diagnosis: Displaced transverse fracture of shaft of humerus, right arm Presentation: 07/25 19:06 Chief complaint: EMS states: "fall after slipping on ice in the back yard. obvious jd3 deformity to the right humorous.". Coronavirus screen: At this time, the client does not indicate any symptoms associated with coronavirus-19. Ebola Screen: Patient negative for fever greater than or equal to 101.5 degrees Fahrenheit, and additional compatible Ebola Virus Disease symptoms. Initial Sepsis Screen: Does the patient meet any 2 criteria? No. Patient's initial sepsis screen is negative. Does the patient have a suspected source of infection? No. Patient's initial sepsis screen is negative. Risk Assessment: Do you want to hurt yourself or someone else? Patient reports no desire to harm self or others. Onset of symptoms was July 25, 2020. 19:06 Method Of Arrival: EMS: [facility] jd3 19:06 Acuity: MEME 3 jd3 Historical: - Allergies: 19:09 No Known Allergies; jd3 - Home Meds: 19:09 amlodipine 5 mg tab 1 tab once daily [Active]; anastrozole 1 mg Oral tab 1 tab once jd3 daily for Hormone Receptor Positive Breast Cancer [Active]; aspirin 81 mg Oral chew [Active]; gabapentin 300 mg Oral cap 1 cap twice daily for Neuropathic Pain [Active]; omeprazole 20 mg Oral cpDR 1 cap once daily for gastric ulcer [Active]; - PMHx: 19:09 Cancer, Breast; Hypertension; neuropathy; Osteoporosis; jd3 - PSHx: 19:09 Cholecystectomy; Appendectomy; lymphnodes removed from right breast; Hysterectomy; Knee jd3 surgery; - Immunization history:: Adult Immunizations up to date. - Social history:: Smoking status: Patient denies any tobacco usage or history of. - Family history:: not pertinent. - Hospitalizations: : No recent hospitalization is reported. Screenin:10 Abuse screen: Denies threats or abuse. Denies injuries from another. Nutritional iw screening: No deficits noted. Tuberculosis screening: No symptoms or risk factors identified. Fall Risk Fall in past 12 months (25 points). Assessment: 20:00 General: Appears in no apparent distress. uncomfortable, Behavior is cooperative. Pain: iw Complains of pain in right arm and right bicep. Neuro: Level of Consciousness is awake, alert, obeys commands, Oriented to person, place, time, situation, Moves all extremities. Full function. Cardiovascular: Patient's skin is warm and dry. Respiratory: Respiratory effort is even, unlabored, Respiratory pattern is regular, symmetrical. Derm: Skin is healthy with good turgor. Musculoskeletal: Range of motion: limited in right elbow Bony deformity noted of right bicep and right tricep Swelling present in right arm. Vital Signs: 19:09 BP 147 / 76; Pulse 92; Resp 18 S; Temp 97.0(TE); Pulse Ox 98% on R/A; Weight 65.32 kg jd3 (R); Height 5 ft. 7 in. (170.18 cm) (R); Pain 10/10; 19:09 Body Mass Index 22.55 (65.32 kg, 170.18 cm) jd3 ED Course: 19:06 Patient arrived in ED. jd3 19:08 Triage completed. jd3 19:11 Arm band placed on. jd3 19:16 Scar Gautam MD is Attending Physician. rn 20:03 Pelvis XRAY In Process Unspecified. EDMS 20:03 XRAY Humerus RIGHT In Process Unspecified. EDMS 20:21 Carmenza Seaman, JEFFY is Primary Nurse. iw 20:53 Lyndon Calle MD is Referral Physician. rn 21:10 Patient did not have IV access during this emergency room visit. iw 21:12 Orthoglass splint: posterior long arm splint applied to the right arm. Sling applied to ds4 right arm. Administered Medications: 20:27 Drug: Tecumseh 5 mg-325 mg 1 tabs Route: PO; iw 21:11 Follow up: Response: No adverse reaction; Pain is decreased iw 20:27 Drug: Motrin 800 mg Route: PO; iw 21:11 Follow up: Response: No adverse reaction; Pain is decreased iw Outcome: 20:53 Discharge ordered by . rn 21:43 Patient left the ED. em Signatures: Dispatcher [employer] MONIQUENY Ronaldo Holly RN Carmenza Taylor, RN RN Scar Webb MD MD rn Swanson, Donovan ds4 Adrian Sarmiento RN RN jd3 Corrections: (The following items were deleted from the chart) 21:11 21:10 Fall Risk None identified. carlotta laguerre
--- NOTE | 2020-07-25 20:54 | EDPHYS ---
Physician Documentation [facility] Name: Autumn Santiago Age: 79 yrs Sex: Female : 1940 Arrival Date: 07/25/2020 Time: 19:06 Bed 9 Private MD: ED Physician Scar Gautam HPI: 07/25 19:18 This 79 yrs old Female presents to ER via EMS with complaints of fall, arm rn deformity. 19:18 The patient or guardian complains of injury, pain. The complaints affect the right rn bicep. Onset: The symptoms/episode began/occurred just prior to arrival. Modifying factors: The symptoms are alleviated by remaining still, the symptoms are aggravated by movement, lifting weight. Severity of symptoms: At their worst the symptoms were moderate, in the emergency department the symptoms have improved. The patient has not experienced similar symptoms in the past. Reports fall, [employer], landed on right side, no head or neck injury/pain, put in splint by EMS. + right humerus pain and deformity. . Historical: - Allergies: 19:09 No Known Allergies; jd3 - Home Meds: 19:09 amlodipine 5 mg tab 1 tab once daily [Active]; anastrozole 1 mg Oral tab 1 tab once jd3 daily for Hormone Receptor Positive Breast Cancer [Active]; aspirin 81 mg Oral chew [Active]; gabapentin 300 mg Oral cap 1 cap twice daily for Neuropathic Pain [Active]; omeprazole 20 mg Oral cpDR 1 cap once daily for gastric ulcer [Active]; - PMHx: 19:09 Cancer, Breast; Hypertension; neuropathy; Osteoporosis; jd3 - PSHx: 19:09 Cholecystectomy; Appendectomy; lymphnodes removed from right breast; Hysterectomy; Knee jd3 surgery; - Immunization history:: Adult Immunizations up to date. - Social history:: Smoking status: Patient denies any tobacco usage or history of. - Family history:: not pertinent. - Hospitalizations: : No recent hospitalization is reported. ROS: 19:18 Constitutional: Negative for fever, chills, and weight loss, Eyes: Negative for injury, rn pain, redness, and discharge, Neck: Negative for injury, pain, and swelling, Cardiovascular: Negative for chest pain, palpitations, and edema, Respiratory: Negative for shortness of breath, cough, wheezing, and pleuritic chest pain, Abdomen/GI: Negative for abdominal pain, nausea, vomiting, diarrhea, and constipation, Back: Negative for injury and pain, MS/Extremity: + right arm injury and deformity Skin: Negative for injury, rash, and discoloration, Neuro: Negative for headache, weakness, numbness, tingling, and seizure. Exam: 19:18 Constitutional: This is a well developed, well nourished patient who is awake, alert, rn and in no acute distress. Head/Face: Normocephalic, atraumatic. Neck: NO midline tenderness Chest/axilla: Normal chest wall appearance and motion. Nontender with no deformity. No lesions are appreciated. Cardiovascular: Regular rate and rhythm. No pulse deficits. Respiratory: No increased work of breathing, no retractions or nasal flaring. Abdomen/GI: Soft, non-tender Back: No spinal tenderness. No costovertebral tenderness. Full range of motion. Skin: No open wounds of RUE, + mild swelling mid RUE. MS/ Extremity: Pulses equal, no cyanosis. + right mid humeral deformity with grinding, NV intact. NO cyanosis Neuro: Awake and alert, GCS 15 Vital Signs: 19:09 BP 147 / 76; Pulse 92; Resp 18 S; Temp 97.0(TE); Pulse Ox 98% on R/A; Weight 65.32 kg jd3 (R); Height 5 ft. 7 in. (170.18 cm) (R); Pain 10/10; 19:09 Body Mass Index 22.55 (65.32 kg, 170.18 cm) jd3 MDM: 20:17 Patient medically screened. rn 20:51 Differential diagnosis: dislocation, closed fracture, contusion. Data reviewed: vital rn signs, nurses notes, radiologic studies, plain films, and as a result, I will discharge patient. Counseling: I had a detailed discussion with the patient and/or guardian regarding: the historical points, exam findings, and any diagnostic results supporting the discharge/admit diagnosis, radiology results, the need for outpatient follow up, to return to the emergency department if symptoms worsen or persist or if there are any questions or concerns that arise at home. Response to treatment: the patient's symptoms have mildly improved after treatment, and as a result, I will discharge patient. Special discussion: I discussed with the patient/guardian in detail that at this point there is no indication for admission to the hospital. It is understood, however, that if the symptoms persist or worsen the patient needs to return immediately for re-evaluation. Based on the history and exam findings, there is no indication for further emergent testing or inpatient evaluation. I discussed with the patient/guardian the need to see the orthopedic surgeon for further evaluation of the symptoms. ED course: Pt with closed mid-shaft right humerus fracture, will splint and dc home, no acute pelvis fractures. . 07/25 19:15 Order name: Pelvis XRAY jd3 07/25 19:16 Order name: Sling; Complete Time: 21:11 rn 07/25 19:17 Order name: XRAY Humerus RIGHT rn 07/25 20:07 Order name: Splint - Elbow - Posterior: right arm; Complete Time: 21:11 rn Administered Medications: 20:27 Drug: Winslow 5 mg-325 mg 1 tabs Route: PO; iw 21:11 Follow up: Response: No adverse reaction; Pain is decreased iw 20:27 Drug: Motrin 800 mg Route: PO; iw 21:11 Follow up: Response: No adverse reaction; Pain is decreased iw Disposition: 07/25/20 20:53 Discharged to Home. Impression: Displaced transverse fracture of shaft of humerus, right arm. - Condition is Stable. - Discharge Instructions: Cast or Splint Care, Adult, Humerus Fracture Treated With Immobilization. - Prescriptions for Tylenol- Codeine #3 300-30 mg Oral Tablet - take 1 tablet by ORAL route every 6 hours As needed; 15 tablet. - Medication Reconciliation Form, Thank You Letter, Antibiotic Education, Prescription Opioid Use form. - Follow up: Private Physician; When: As needed; Reason: Recheck today's complaints, Re-evaluation by your physician. Follow up: Lyndon Calle MD; When: 5 - 6 days; Reason: Recheck today's complaints, Continuance of care, Re-evaluation by your physician. - Problem is new. - Symptoms have improved. Signatures: Dispatcher [employer] EDMS Ronaldo Holly, RN Carmenza Taylor RN RN iw Scar Gautam MD MD rn Davies, Jonathon, RN RN jd3 Corrections: (The following items were deleted from the chart) 19:22 19:16 Humerus Left+RAD.RAD.BRZ ordered. EDMS EDMS 20:52 19:18 Constitutional: This is a well developed, well nourished patient who is awake, rn alert, and in no acute distress. Head/Face: Normocephalic, atraumatic. Neck: NO midline tenderness Chest/axilla: Normal chest wall appearance and motion. Nontender with no deformity. No lesions are appreciated. Cardiovascular: Regular rate and rhythm. No pulse deficits. Respiratory: No increased work of breathing, no retractions or nasal flaring. Abdomen/GI: Soft, non-tender Back: No spinal tenderness. No costovertebral tenderness. Full range of motion. MS/ Extremity: Pulses equal, no cyanosis. + right mid humeral deformity with grinding, NV intact. NO cyanosis Neuro: Awake and alert, GCS 15 rn 20:54 20:53 07/25/2020 20:53 Discharged to Home. Impression: Displaced transverse fracture of rn shaft of humerus, right arm. Condition is Stable. Forms are Medication Reconciliation Form, Thank You Letter, Antibiotic Education, Prescription Opioid Use. Follow up: Private Physician; When: As needed; Reason: Recheck today's complaints, Re-evaluation by your physician. Problem is new. Symptoms have improved. rn 21:43 20:54 07/25/2020 20:53 Discharged to Home. Impression: Displaced transverse fracture of em shaft of humerus, right arm. Condition is Stable. Discharge Instructions: Cast or Splint Care, Adult, Humerus Fracture Treated With Immobilization. Prescriptions for Tylenol-Codeine #3 300-30 mg Oral Tablet - take 1 tablet by ORAL route every 6 hours As needed; 15 tablet. and Forms are Medication Reconciliation Form, Thank You Letter, Antibiotic Education, Prescription Opioid Use. Follow up: Private Physician; When: As needed; Reason: Recheck today's complaints, Re-evaluation by your physician. Follow up: Lyndon Calle; When: 5 - 6 days; Reason: Recheck today's complaints, Continuance of care, Re-evaluation by your physician. Problem is new. Symptoms have improved. rn
[2020-07-25 22:13] VITALS: BP 147/76; TEMP 97; O2SAT 98
--- NOTE | 2020-07-26 07:22 | RAD REPORT ---
EXAM DESCRIPTION: RAD - Pelvis - 07/25/2020 10:37 pm CLINICAL HISTORY: Pelvic pain status post injury FINDINGS: Old fractures involve the pubic bones and ischia. No fracture or dislocation seen
--- NOTE | 2020-07-26 07:23 | RAD REPORT ---
EXAM DESCRIPTION: RAD - Humerus Right - 07/25/2020 10:37 pm CLINICAL HISTORY: Right arm pain status post fall FINDINGS: Comminuted fracture mid right humerus with moderate displacement of fracture fragments an d angulation present at fracture site
== END 2020-07-25 21:43 | disposition home or self-care (01) ==
LOC: ER 19:02
DX: S42.321A Displaced transverse fracture of shaft of humerus, right arm, initial encounter for closed fracture (principal); W19.XXXA Unspecified fall, initial encounter; Z85.3 Personal history of malignant neoplasm of breast; M81.0 Age-related osteoporosis without current pathological fracture; G62.9 Polyneuropathy, unspecified; I10 Essential (primary) hypertension
CPT/HCPCS: 72170; 99284

== ENCOUNTER 2020-08-04 11:18 | Observation (INO) | payer OTHER ==
[2020-08-01 17:16] LABS: Absolute Lymphocytes (CBC) 0.9 K/uL (0.7-4.9); Basophils % 0.4 % (0-1.3); Hematocrit 35.2 % (36.0-45.0); Lymphocytes % 15.8 % (15.3-44.8); RBC Red Blood Cell Count 4.02 M/uL (3.86-4.86)
[2020-08-01 17:31] LABS: Potassium 4.3 mmol/L (3.5-5.1)
--- NOTE | 2020-08-03 05:40 | EKG ---
Test Date: 2020-08-01 Test Time: 16:29:33 Editorial Intern: LE MEASUREMENT RESULTS: Intervals: Rate: 73 AR: 122 QRSD: 76 QT: 386 QTc: 425 [place]: P: 55 AR: 122 QRS: 28 T: 33 INTERPRETIVE STATEMENTS: Normal sinus rhythm Normal ECG Compared to ECG 01/04/2020 17:23:04 T-wave abnormality no longer present Electronically Signed On 08-03-20 05:35:59 [employer] EXCHANGE ADMINISTRATOR by Narinder Gann
[2020-08-04] MEDS ORDERED: CEFAZOLIN/SWI 1gm 1 GM/10 ML SYR ONE (11:47)
[2020-08-04] MEDS ORDERED: Ringers Lactate 1,000 ML IV ONE (11:47)
[2020-08-04] MEDS ORDERED: dexAMETHasone 10 MG/ML VIAL ONE (12:04)
[2020-08-04] MEDS ORDERED: NS 0.9% VIAL 10 ML ONE (12:04)
[2020-08-04] MEDS ORDERED: FENTANYL CITR 100 MCG/2 ML ONE (12:05)
[2020-08-04] MEDS ORDERED: MIDAZOLAM HCL 2 MG/2 ML INJ ONE (12:05)
[2020-08-04] MEDS ORDERED: LIDOCAINE 1% MPF 2 ML AMPULE ONE (12:06)
[2020-08-04] MEDS ORDERED: ROPLVACAINE HCL 40 ML ONE (12:06)
[2020-08-04] MEDS ORDERED: propofoL 200 MG/20 ML VIAL IV ONE (12:29)
[2020-08-04] MEDS ORDERED: ONDANSETRON 4 MG/2 ML VIAL ONE (12:32)
[2020-08-04] MEDS ORDERED: LIDOCAINE 1% MPF 5 ML VIAL ONE (12:32)
[2020-08-04] MEDS ORDERED: EPHEDRINE SULF 50 MG/ML VIAL ONE (13:10)
--- NOTE | 2020-08-04 13:52 | P.BOP ---
Preoperative diagnosis: right humerus fracture Postoperative diagnosis: same Primary procedure: right humerus ORIF Estimated blood loss: 20ccs Anesthesia: General Complications: None Transferred to: Recovery Room Condition: Good
--- NOTE | 2020-08-04 14:18 | RAD REPORT ---
EXAM DESCRIPTION: RAD - Humerus Right - 08/04/2020 2:11 pm CLINICAL HISTORY: ORIF RIGHT HUMERUS COMPARISON: Humerus Right dated 07/25/2020; Humerus Right dated 03/26/2012 FINDINGS: Fluoroscopy time 25.2 seconds
[2020-08-04 14:25] VITALS: O2SAT 96
--- OUTSIDE RECORDS SUMMARY | 2020-08-04 14:50 | XMS REPORT | Continuity of Care Document ---
:1940 Author Organization [facility] t Address [address] [place] [address] Care Team Providers Name Role Phone Unavailable [...] Clinicians Facility Department ID 2020-05-30 2020-05-30 Outpatient [facility] [id number] [facility]00 [facility] 2020-05-23 2020-05-23 Outpatient [facility] [id number] [facility] 00[facility]00 [facility] ent Clinics Results This patient has no known results.
[2020-08-04 16:45] VITALS: BMI 22.0
[2020-08-04] MEDS ORDERED: ATORVASTATIN 10 MG TAB PO SCH (21:00)
[2020-08-04] MEDS ORDERED: CEFAZOLIN/NS 1gm 1 GM/50 ML BAG IVPB SCH (21:00)
[2020-08-04] MEDS: CEFAZOLIN/SWI 1gm 1 GM/10 ML SYR IVP SCH (21:03)
--- NOTE | 2020-08-04 23:10 | OP ---
Date of Procedure: 08/04/2020 Surgeon: Lyndon Calle MD Preoperative Diagnosis: Right humerus fracture, which is highly displaced. Postoperative Diagnosis: Right humerus fracture, which is highly displaced. Procedure: Right humerus open reduction and internal fixation. Estimated Blood Loss: 20 cc. Complications: There were no complications. Pathology Specimen: No pathology specimen sent. Indication For Operation: Ms. Santiago is a 79-year-old female who unfortunately fell injuring her [facility] upper extremity. She was seen and examined in outside facility where she demonstrated a very wid molly displaced transverse fracture of the humerus at the junction of the proximal middle third. We at tempted to treat this in a fracture brace to see whether this would allow it to align. She came back with a fracture brace. X-rays were taken, which demonstrated essentially no improvement of alignmen t, is very highly displaced. Risks, benefits, and alternatives to operative intervention have been d iscussed with the patient. It should be noted that she is a fairly small lady and consideration is t hat perhaps a kim would not be able to be placed in the canal without causing fracture. Therefore, d ecision was made for open reduction and internal fixation of the humerus. Risks, benefits, and alter natives of this have been discussed and patient agrees to proceed. Description Of Procedure: The patient was taken to the operating room and placed in supine position. General anesthesia was easily obtained by anesthesia staff. Following this, the right upper extrem ity was then prepped and draped in usual sterile fashion for procedure. Coracoid was located and an incision marked out using the coracoid as a landmark and incision was progressed down lateral to the biceps. The biceps was then switched medially. Fracture was then easily seen. The brachialis appea rs to be quite disrupted. The incision was then carried up gently to just anterior to the deltoid in sertion, which allowed for good positioning of the proximal aspect of the plate. The exposure was th en continued distally with great care being taken to avoid placing any retractors along the course of the radial nerve. This was done until there was sufficient visualization distally. The fracture wa s somewhat reduced and the plate was aligned on the shaft where it appeared to be best fit. The most superior screw was then placed. C-arm was brought into to demonstrate good alignment and a second s crew was then placed distally to allow for compression. After this, the remainder of the screws were then filled in standard AO fashion. The wound was copiously irrigated. It was checked under biplan ar C-arm radiography for length of screws and position of plate. The skin was then closed using inte rrupted Vicryl sutures followed by lisandro. The patient was placed in Aquacel dressing and a sling, awakened, and taken to the recovery room in good condition. No complications. SE/MODL Voice ID: [id number] Report ID: [id number]
[2020-08-05] MEDS: CEFAZOLIN/SWI 1gm 1 GM/10 ML SYR IVP SCH ×2 (01:05→09:00)
[2020-08-05] MEDS: HYDROCODONE/APAP 5/325 MG TAB PO PRN ×2 (01:20→06:51)
[2020-08-05] MEDS ORDERED: PNEUMOCOCCAL VACCINE 0.5 ML IMVAC ONE (09:00)
[2020-08-05] MEDS ORDERED: ramipriL 5 MG CAP PO SCH (09:00)
[2020-08-05] MEDS ORDERED: AMLODIPINE 5 MG TAB PO SCH (09:00)
[2020-08-05 09:20] VITALS: BP 128/60
[2020-08-05 10:13] VITALS: TEMP 98.3
== END 2020-08-05 10:29 | disposition home or self-care (01) ==
LOC: OR 11:18 → 2ND 14:48
PROVIDERS: ADMIT Orthopaedic Surgery; ATTEND Orthopaedic Surgery
PROC: 0PSF04Z Reposition Right Humeral Shaft with Internal Fixation Device, Open Approach (ICD-10-PCS; principal; 2020-08-04 12:00)
DX: S42.321A Displaced transverse fracture of shaft of humerus, right arm, initial encounter for closed fracture (principal); I10 Essential (primary) hypertension; M81.0 Age-related osteoporosis without current pathological fracture; Z85.3 Personal history of malignant neoplasm of breast; Z90.11 Acquired absence of right breast and nipple; Z86.73 Personal history of transient ischemic attack (TIA), and cerebral infarction without residual deficits; Z20.822 Contact with and (suspected) exposure to COVID-19
CPT/HCPCS: 93005; 85025; 80048; 36415; 73060; 24515; U0002; J2704; J2250; J3010; J1100; J2795; J2001; J0690 ×3; J7120; J2405; G0378

== ENCOUNTER 2021-01-17 09:52 | Emergency (ER) | payer OTHER ==
--- OUTSIDE RECORDS SUMMARY | 2021-01-17 09:55 | XMS REPORT | Continuity of Care Document ---
:1940 Author Organization [facility] t Address [address] [place] [address] Care Team Providers Name Role Phone Unavailable Unavailable Unavailable Problems This patient has no known problems. Allergies, Adverse Reactions, Alerts This patient has no known allergies or adverse reactions. Medications This patient has no known medications. Procedures This patient has no known procedures. Encounters Start End Encounter Admission Attending Care Care Encounter Source Date/Time Date/Time Type Type Clinicians Facility Department ID 2021-01-08 2021-01-[address] [facility] [id number] [facility] 2021-01-04 2021-01-[address] [facility] [id number] [facility] 2020-05-30 2020-05-[address] [facility] [id number] [facility] 2020-05-23 2020-05-[address] [facility] [id number] [facility] Results This patient has no known results.
--- NOTE | 2021-01-17 11:50 | RAD REPORT ---
EXAM DESCRIPTION: RAD - Shoulder Right 2 View - 01/17/2021 11:42 am CLINICAL HISTORY: PAIN COMPARISON: CT-RAD THERAPY FLD PLACE-CHEST dated 09/27/2019; Bone Imaging Whole Body dated 01/15/2021; DEXA, BONE DENSITY AXIAL SKELE dated 11/08/2020 FINDINGS: Partially imaged plate and screw fixation hardware in the right humerus. There is a fractu re line which remains evident at the level of the mid humeral diaphysis. Linear ossifications along t he superior aspect of the humeral head are noted. These are nonspecific. No dislocation is identified . Calcified right upper lobe nodule. Surgical clips in the right axilla. IMPRESSION: No definite right shoulder fracture is identified. Well corticated fragments along the s uperior aspect of the humeral head are favored chronic. If there is a high clinical concern for acute fracture, CT could confirm.
--- NOTE | 2021-01-17 12:47 | RAD REPORT ---
EXAM DESCRIPTION: CT - Humerus Right Wo Con - 01/17/2021 12:29 pm CLINICAL HISTORY: Right arm pain status post fall COMPARISON: X-ray same date TECHNIQUE: Computed axial tomography of the right humerus obtained. Coronal and sagittal reconstruct ion All CT scans are performed using dose optimization technique as appropriate and may include automated exposure control or mA/KV adjustment according to patient size. FINDINGS: Comminuted mildly displaced fracture right humeral head. No dislocation Sideplate and screws affix late subacute fracture mid right humerus. Callus formation is present abou t the fracture site. Mild displacement of fracture fragments. IMPRESSION: Comminuted mildly displaced fracture right humeral head.
[2021-01-17] MEDS ORDERED: HYDROCODONE/APAP 7.5/325 MG TAB ONE (13:10)
--- NOTE | 2021-01-17 14:06 | ER ---
Nurse's Notes [facility] Name: Autumn Santiago Age: 80 yrs Sex: Female : 1940 Arrival Date: 01/17/2021 Time: 09:55 Bed Waiting Private MD: Zaira Catherine F Diagnosis: Closed comminuted left humerus fracture Presentation: 01/17 10:43 Chief complaint: Patient states: Getting off the treadmill this morning and fell onto jl7 Right arm, c/o pain in right arm and right shoulder. Coronavirus screen: Client denies travel out of the [place] in the last 14 days. At this time, the client does not indicate any symptoms associated with coronavirus-19. Ebola Screen: No symptoms or risks identified at this time. Initial Sepsis Screen: Does the patient meet any 2 criteria? No. Patient's initial sepsis screen is negative. Does the patient have a suspected source of infection? No. Patient's initial sepsis screen is negative. Risk Assessment: Do you want to hurt yourself or someone else? Patient reports no desire to harm self or others. Onset of symptoms was January 17, 2021. 10:43 Method Of Arrival: Ambulatory 7 10:43 Acuity: MEME 4 jl7 Triage Assessment: 10:45 General: Appears in no apparent distress. uncomfortable, Behavior is calm, cooperative, jl7 appropriate for age. Pain: Complains of pain in right shoulder and right arm Pain currently is 10 out of 10 on a pain scale. Neuro: Level of Consciousness is awake, alert, obeys commands, Oriented to person, place, time, situation. Cardiovascular: Patient's skin is warm and dry. Respiratory: Airway is patent Respiratory effort is even, unlabored, Respiratory pattern is regular, symmetrical. Derm: Skin is pink, warm \T\ dry. Musculoskeletal: Swelling absent. Historical: - Allergies: 10:45 No Known Allergies; jl7 - PMHx: 10:45 Cancer, Breast; Hypertension; neuropathy; Osteoporosis; high cholesterol; jl7 - Immunization history:: Adult Immunizations up to date. - Social history:: Smoking status: Patient denies any tobacco usage or history of. Screenin:30 Abuse screen: Denies threats or abuse. Denies injuries from another. Nutritional kg screening: No deficits noted. Tuberculosis screening: No symptoms or risk factors identified. Fall Risk None identified. Vital Signs: 10:43 BP 145 / 79; Pulse 62; Resp 17; Temp 97.6; Pulse Ox 99% ; Weight 63.5 kg; Height 5 ft. jl7 7 in. (170.18 cm); Pain 10/10; 12:55 BP 128 / 73; Pulse 66; Resp 18; Pulse Ox 97% on R/A; kg 10:43 Body Mass Index 21.93 (63.50 kg, 170.18 cm) jl7 ED Course: 09:55 Patient arrived in ED. as 09:55 Zaira Catherine MD is Private Physician. as 09:57 Bam Avery MD is Attending Physician. kdr 10:45 Triage completed. jl7 10:45 Arm band placed on right wrist. Patient placed in waiting room, Patient notified of jl7 wait time. 11:42 Shoulder Right (2 View) XRAY In Process Unspecified. EDMS 12:27 Humerus Right Wo Con In Process Unspecified. EDMS 12:54 Beth Rader, RN is Primary Nurse. kg 14:03 Lyndon Calle MD is Referral Physician. kdr 14:30 Patient has correct armband on for positive identification. kg 14:30 No provider procedures requiring assistance completed. Patient did not have IV access kg during this emergency room visit. Administered Medications: 12:54 Drug: Hydrocodone-Acetaminophen (7.5 mg-325 mg) 1 tabs Route: PO; kg 14:31 Follow up: Response: No adverse reaction; Pain is decreased kg Outcome: 14:06 Discharge ordered by . kdr 14:30 Discharged to home ambulatory. kg 14:30 Condition: improved 14:30 Discharge instructions given to patient, Instructed on discharge instructions, follow up and referral plans. Sling usage Demonstrated understanding of instructions, follow-up care, splint care, Prescriptions given X 1. 14:31 Patient left the ED. kg Signatures: Dispatcher [employer] EDMS Bam Avery MD MD kdr Jackie Schulz Jahala, RN RN jl7 Beth Rader RN RN kg
--- NOTE | 2021-01-17 14:07 | EDPHYS ---
Physician Documentation [facility] Name: Autumn Santiago Age: 80 yrs Sex: Female : 1940 Arrival Date: 01/17/2021 Time: 09:55 Bed Waiting Private MD: Zaira Catherine F ED Physician Bam Avery HPI: 01/17 10:50 This 80 yrs old Female presents to ER via Ambulatory with complaints of Fall kdr Injury, Arm Injury. 10:50 Details of fall: The patient fell from an upright position, while walking, Was walking kdr on her treadmill when she missed stepped and fell onto her right shoulder. She was not able to get up and had to call her for help.. Onset: The symptoms/episode began/occurred suddenly, just prior to arrival, this morning, at 08:00. Associated injuries: The patient sustained anterior aspect of right shoulder, right bicep, posterior aspect of right shoulder and right tricep, decreased range of motion. Severity of symptoms: At their worst the symptoms were mild, in the emergency department the symptoms are unchanged. 12:10 The patient has not experienced similar symptoms in the past. The patient has not kdr recently seen a physician. Concerned that she tripped when coming off of a treadmill landing on her right shoulder. She had a recent fracture on that same side which required plating.. Historical: - Allergies: 10:45 No Known Allergies; jl7 - PMHx: 10:45 Cancer, Breast; Hypertension; neuropathy; Osteoporosis; high cholesterol; jl7 - Immunization history:: Adult Immunizations up to date. - Social history:: Smoking status: Patient denies any tobacco usage or history of. ROS: 12:09 Constitutional: Negative for fever, chills, and weight loss, Eyes: Negative for injury, kdr pain, redness, and discharge, Neck: Negative for injury, pain, and swelling, Cardiovascular: Negative for chest pain, palpitations, and edema, Respiratory: Negative for shortness of breath, cough, wheezing, and pleuritic chest pain, Abdomen/GI: Negative for abdominal pain, nausea, vomiting, diarrhea, and constipation, Back: Negative for injury and pain, Skin: Negative for injury, rash, and discoloration, Neuro: Negative for headache, weakness, numbness, tingling, and seizure activity. Psych: Negative for depression, anxiety, suicide ideation, homicidal ideation, and hallucinations, Allergy/Immunology: Negative for hives, rash, and allergies, Endocrine: Negative for neck swelling, polydipsia, polyuria, polyphagia, and marked weight changes, Hematologic/Lymphatic: Negative for swollen nodes, abnormal bleeding, and unusual bruising. 12:09 MS/extremity: Positive for injury or acute deformity, decreased range of motion, pain, tenderness, of the anterior aspect of right shoulder, right bicep, posterior aspect of right shoulder and right tricep. Exam: 12:09 Constitutional: This is a well developed, well nourished patient who is awake, alert, kdr and in no acute distress. Head/Face: Normocephalic, atraumatic. Eyes: Pupils equal round and reactive to light, extra-ocular motions intact. Lids and lashes normal. Conjunctiva and sclera are non-icteric and not injected. Cornea within normal limits. Periorbital areas with no swelling, redness, or edema. Neck: Trachea midline, no thyromegaly or masses palpated, and no cervical lymphadenopathy. Supple, full range of motion without nuchal rigidity, or vertebral point tenderness. No Meningismus. Chest/axilla: Normal chest wall appearance and motion. Nontender with no deformity. No lesions are appreciated. Cardiovascular: Regular rate and rhythm with a normal S1 and S2. No gallops, murmurs, or rubs. Normal PMI, no JVD. No pulse deficits. Respiratory: Lungs have equal breath sounds bilaterally, clear to auscultation and percussion. No rales, rhonchi or wheezes noted. No increased work of breathing, no retractions or nasal flaring. Abdomen/GI: Soft, non-tender, with normal bowel sounds. No distension or tympany. No guarding or rebound. No evidence of tenderness throughout. Back: No spinal tenderness. No costovertebral tenderness. Full range of motion. Skin: Warm, dry with normal turgor. Normal color with no rashes, no lesions, and no evidence of cellulitis. Neuro: Awake and alert, GCS 15, oriented to person, place, time, and situation. Cranial nerves II-XII grossly intact. Motor strength 5/5 in all extremities. Sensory grossly intact. Cerebellar exam normal. Normal gait. Psych: Awake, alert, with orientation to person, place and time. Behavior, mood, and affect are within normal limits. 12:09 Musculoskeletal/extremity: Extremities: grossly normal except: noted in the anterior aspect of right shoulder, right bicep, posterior aspect of right shoulder and right tricep: decreased ROM, pain, tenderness. Vital Signs: 10:43 BP 145 / 79; Pulse 62; Resp 17; Temp 97.6; Pulse Ox 99% ; Weight 63.5 kg; Height 5 ft. jl7 7 in. (170.18 cm); Pain 10/10; 12:55 BP 128 / 73; Pulse 66; Resp 18; Pulse Ox 97% on R/A; kg 10:43 Body Mass Index 21.93 (63.50 kg, 170.18 cm) jl7 MDM: 14:06 Patient medically screened. kdr 18:36 Differential diagnosis: contusion, fracture, sprain, strain. Data reviewed: vital kdr signs, nurses notes, radiologic studies. Counseling: I had a detailed discussion with the patient and/or guardian regarding: the historical points, exam findings, and any diagnostic results supporting the discharge/admit diagnosis, radiology results, the need for outpatient follow up. 01/17 10:50 Order name: Shoulder Right (2 View) XRAY; Complete Time: 12:03 kdr 01/17 12:09 Order name: Humerus Right Wo Con; Complete Time: 14:01 EDMS 01/17 12:25 Order name: Sling; Complete Time: 12:54 kdr Administered Medications: 12:54 Drug: Hydrocodone-Acetaminophen (7.5 mg-325 mg) 1 tabs Route: PO; kg 14:31 Follow up: Response: No adverse reaction; Pain is decreased kg Disposition Summary: 01/17/21 14:06 Discharge Ordered Location: Home kdr Problem: new kdr Symptoms: have improved kdr Condition: Stable kdr Diagnosis - Closed comminuted left humerus fracture kdr Followup: kdr - With: Lyndon Calle MD - When: 2 - 3 days - Reason: If symptoms return, Further diagnostic work-up, Recheck today's complaints, Continuance of care, Re-evaluation by your physician Discharge Instructions: - Discharge Summary Sheet kdr - Humerus Fracture Treated With Immobilization, [id number] kdr Forms: - Medication Reconciliation Form kdr - Thank You Letter kdr - Prescription Opioid Use kdr Prescriptions: - acetaminophen-codeine 300-15 mg Oral tablet - take 1 tablet by ORAL route every 4-6 hours As needed You may take 1 or 2 kdr tablets every 4-6 hours as needed for pain.; 20 tablet; Refills: 0, Product Selection Permitted Signatures: Dispatcher [employer] Bam Austin MD MD kdr Leal, Jahala RN RN jl7 Beth Rader RN RN kg
[2021-01-17 14:39] VITALS: TEMP 97.6
[2021-01-17 14:41] VITALS: BP 128/73; O2SAT 97
== END 2021-01-17 14:31 | disposition home or self-care (01) ==
LOC: ER 09:52
DX: S42.351A Displaced comminuted fracture of shaft of humerus, right arm, initial encounter for closed fracture (principal); W01.0XXA Fall on same level from slipping, tripping and stumbling without subsequent striking against object, initial encounter; Y93.A1 Activity, exercise machines primarily for cardiorespiratory conditioning; I10 Essential (primary) hypertension; Z85.3 Personal history of malignant neoplasm of breast
CPT/HCPCS: 73200; 99283

== ENCOUNTER 2023-04-11 18:33 | Emergency (ER) | payer OTHER ==
--- OUTSIDE RECORDS SUMMARY | 2023-04-11 18:39 | XMS REPORT | Continuity of Care Document ---
:1940 Author Organization [facility] t Address [address] [place] [address] Care Team Providers Name Role Phone Zaira Catherine Attending Clinician Unavailable ALEA JONES Attending Clinician Unavailable BEATRICE THOMPSON Attending Clinician Unavailable LAB90 Attending Clinician Unavailable ESTELA LI Attending Clinician Unavailable MATI PARKS Attending Clinician Unavailable OSCAR GRAY Attending Clinician Unavailable FAUSTO RUBI Attending Clinician Unavailable Alea Jones Attending Clinician Unavailable LUCIUS HOLT Attending Clinician Unavailable [email or web address] Attending Clinician Unavailable DARELL MOODY Attending Clinician Unavailable TANJA BOB Attending Clinician Unavailable MELISSA BLACK Attending Clinician Unavailable RAYMOND DANIELS Attending Clinician Unavailable EDUCATION, TOTAL JOINT Attending Clinician Unavailable TREMAYNE CLEMONS Attending Clinician Unavailable BOB MENSAH Attending Clinician Unavailable Ajibade_O_AH Attending Clinician Unavailable Ige-Odunuga_J_AH Attending Clinician Unavailable Alea Jones Admitting Clinician Unavailable UNDEFINED Admitting Clinician Unavailable [email or web address] Admitting Clinician Unavailable Ajibade_O_AH Admitting Clinician Unavailable Ige-Odunuga_J_AH Admitting Clinician Unavailable Payers Payer Name Policy Type Policy Number Effective Date Expiration Date Umair meyer KCAyesha TYONEK HMO 7 [id number] 2022 00:00:00 [facility] [id number] [employer] [facility] 7 [id number] 2022 CLASSIC NO PREMIUM 00:00:00 R2T WELL[place]ARE OF [place] - [id number] [employer] (MEDICARE 00:00:00 REPLACEMENT/ADVANTA GE - HMO) Problems Condition Condition Condition Status Onset Resolution Last Treating Co mments Source Name Details Category Date Date Treatment Clinician Date History of History of Disease Active 2022-06 Charu puckett right knee right knee 0-10 Se ybold surgery surgery 00:00: - 00 Externa l Gastroesop Gastroesop Disease Active Charu italo hageal hageal 12 Seybold reflux reflux 00:00: - disease disease 00 Externa without without l esophagiti esophagiti s s Neuropathy Neuropathy Disease Active Charu niñoshad 7-12 Seybold 00:00: - 00 Externa l History of History of Disease Active Charu puckett breast breast 12 Seybold cancer cancer 00:00: - 00 Externa l Chronic Chronic Disease Active Nikole osteoarthr osteoarthr 12 Se ybold itis itis 00:00: - 00 Externa l Prediabete Prediabete Disease Active Charu puckett s s 12-18 Seybold 00:00: - 00 Externa l Peripheral Peripheral Disease Active Charu niñoshad vascular vascular 5-13 Seybol d disease of disease of 00:00: - extremity extremity 00 Exte rna l 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 5 Seybold depression depression 00:00: - , single , single 00 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 of right St knee as [facility] current Medical injury, Center subsequent encounter Malignant Malignant Problem Com mon neoplasm neoplasm Spirit of of [facility] upper-oute upper-oute St r quadrant r quadrant Kenzie kes of female of right Medic al breast female Center breast [id number] Arthritis Problem Co mmon [id number] of knee, [facility] right [facility] [id number] Primary Problem Commo n osteoarthr [facility] itis of - [facility] both knees [facility] Arthritis Arthritis Problem Com mon of both of both Spirit knees knees [facility] [id number] [place] [id number] osteoarthr [facility] itis of [facility] right knee [facility] [id number] [place], [place] [id number] joint, [facility] knee, [facility] right [facility] [id number] Pain in Problem Comm on left knee Spirit [facility] [id number] Other Problem Common chronic Spirit pain [facility] [id number] Arthritis Problem Co mmon [id number] of knee, [facility] left [facility] No known No known Disease Kelse y active active Seybold problems problems - Externa l Allergies, Adverse Reactions, Alerts Allergy Allergy Status Severity Reaction(s) Onset Inactive Treating Comm ents Source Name Type Date Date Clinician No Known DA Active [facility] 01-06 Clear Allergie 00:00: s 00 [facility] Social History Social Habit Start Date Stop Date Quantity Comments Source History of Tobacco Common Spirit - Use [facility] Gender identity Nikole kothari - External Sexual orientation Nikole Ladd - External Alcohol intake 2023-03-18 2023-03-18 Ex-drinker Nikole whitten 00:00:00 00:00:00 (finding) - External History of Social 2023-02-24 2023-02-24 Nikole Salomonybold function 00:00:00 00:00:00 - External Education 2022-12-18 2022-12-18 13 Nikole Ladd 00:00:00 00:00:00 - External Tobacco use and 2022-05-15 2022-05-15 Smokeless tobacco Clive allen Seybold exposure 00:00:00 00:00:00 non-user - External Sex [birth year] Nikole Salomon ybold 00:00:00 00:00:00 - External Smoking Status Start Date Stop Date Source Never smoked tobacco Nikole Seyb old - External Medications Ordered Filled Start Stop Current Ordering Indication Dosage Frequency Signature Comments Components Source Medication Medication Date Date Medication? Clinician (SIG) Name Name Multiple 2022-06 Yes 1{tbl} Take 1 Kelse y Vitamin 0-10 tablet by Seybold (Multivitam 08:24: mouth - in Adult) 51 daily. Externa oral Tablet l Duloxetine 2022-06 Yes [id number] 20mg Take 1 K elsey HCl 20 MG 0-10 capsule Seybold oral Cap DR 00:00: (20 mg - Particles 00 total) by Exter na mouth l daily. Alendronate 2022-06 Yes [id number] 70mg Take 1 Nikole Sodium 70 0-10 tablet (70 Seyb old MG oral 00:00: mg total) - Tablet 00 by mouth Externa every 7 l days. Aspirin 81 2022-06 Yes [id number] 81mg Take 1 K elsey MG oral 0-10 tablet (81 Seybol d Tablet 00:00: mg total) - Delayed 00 by mouth Externa Response daily. l Cholecalcif 2022-06- No 1000U Take 1 Ke lsey adriane 0-09 10-09 tablet Seybold (Vitamin 21:16: 00:00 (1,000 - D3) 25 MCG 28 :00 units Externa (1000 UT) total) by l oral Tablet mouth daily. Tamoxifen 2022-06- No 20mg Take 1 Kelse y Citrate 20 0-09 10-09 tablet (20 Se ybold MG oral 21:16: 00:00 mg total) - Tablet 22 :00 by mouth Externa daily. l Tamoxifen 2023-0 Yes 20mg Take 1 Nikole Citrate 20 9-27 tablet (20 Sey bold MG oral 09:33: mg total) - Tablet 56 by mouth Externa daily. l Cholecalcif 2023-0 Yes 1000U Take 1 Ty sey adriane 9-27 tablet Seybold (Vitamin 09:33: (1,000 - D3) 25 MCG 56 units Externa (1000 UT) total) by l oral Tablet mouth daily. Tamoxifen 2023-0 Yes 20mg Take 1 Nikole Citrate 20 9-01 tablet (20 Sey bold MG oral 09:41: mg total) - Tablet 02 by mouth Externa daily. l Cholecalcif 2023-0 Yes 1000U Take 1 Ty sey adriane 9-01 tablet Seybold (Vitamin 09:41: (1,000 - D3) 25 MCG 02 units Externa (1000 UT) total) by l oral Tablet mouth daily. HYDROcodone 2023-0 Yes 1{tbl} Take 1 Ke lsey -Acetaminop 8-25 tablet by Pino muir (Cortrium) 00:00: mouth - 10-325 MG 00 every 4 to Exte rna oral Tablet 6 hours. l HYDROcodone 2023-0 Yes 1{tbl} Take 1 Ke lsey -Acetaminop 8-25 tablet by Pino muir (Cortrium) 00:00: mouth - 10-325 MG 00 every 4 to Exte rna oral Tablet 6 hours. l HYDROcodone 2023-0 2023- No 1{tbl} Take 1 K elsey -Acetaminop 8-25 10-09 tablet by Se taye muir (Cortrium) 00:00: 00:00 mouth - 10-325 MG 00 :00 every 4 to Exte rna oral Tablet 6 hours. l Aspirin 325 2023-0 Yes 325mg Take 1 Ty sey MG oral 8-15 tablet Seybold Tablet 00:00: (325 mg - 00 total) by Externa mouth l daily Aspirin 325 2023-0 Yes 325mg Take 1 Ty sey MG oral 8-15 tablet Seybold Tablet 00:00: (325 mg - 00 total) by Externa mouth l daily Aspirin 325 2023-0 2023- No 325mg Take 1 Ke lsey MG oral 8-15 10-09 tablet Seybold Tablet 00:00: 00:00 (325 mg - 00 :00 total) by Externa mouth l daily Tamoxifen Yes 20mg Take 1 Nikole Citrate 20 8-02 tablet (20 Sey bold MG oral 08:14: mg total) - Tablet 50 by mouth Externa daily l Cholecalcif 0 Yes 1000U Take 1 Ty sey adriane 8-02 tablet Seybold (Vitamin 08:14: (1,000 - D3) 25 MCG 50 units Externa (1000 UT) total) by l oral Tablet mouth daily Duloxetine 0 Yes [id number] 30mg Take 1 Nikole HCl 30 MG 8-02 capsule Seybold oral Cap DR 00:00: (30 mg - Particles 00 total) by Exter na mouth l daily Duloxetine Yes [id number] 30mg Take 1 Nikole HCl 30 MG 8-02 capsule Seybold oral Cap DR 00:00: (30 mg - Particles 00 total) by Exter na mouth l daily Duloxetine 0 Yes [id number] 30mg Take 1 Nikole HCl 30 MG 8-02 capsule Seybold oral Cap DR 00:00: (30 mg - Particles 00 total) by Exter na mouth l daily Duloxetine 0 2022- No [id number] 30mg Take 1 Nikole HCl 30 MG 8-02 10-09 capsule Seybol d oral Cap DR 00:00: 00:00 (30 mg - Particles 00 :00 total) by Exter na mouth l daily Duloxetine 0 2022- No [id number] 30mg Take 1 Nikole HCl 30 MG 8-02 08-02 capsule Seybol d oral Cap DR 00:00: 00:00 (30 mg - Particles 00 :00 total) by Exter na mouth l daily HYDROcodone 0 Yes 1{tbl} Take 1 Ke lsey -Acetaminop 7-31 tablet by Pino muir ([place]) 00:00: mouth - 10-325 MG 00 every 4 to Exte rna oral Tablet 6 hours l Aspirin 325 2022-0 Yes 325mg Take 1 Ty sey MG oral 7-31 tablet Seybold Tablet 00:00: (325 mg - 00 total) by Externa mouth l daily levoFLOXaci 2022-0 2022- No [id number] 750mg Take 1 Nikole n 7-28 08-02 tablet Seybold (Levaquin) 00:00: 00:00 (750 mg - 750 MG oral 00 :00 total) by Ext jennifer Tablet mouth l daily Cefdinir 2022-0 2022- No [id number] 300mg Take 1 K elsey 300 MG oral 12-25-02 capsule Seyb old Capsule 00:00: 00:00 (300 mg - 00 :00 total) by Externa mouth 2 l times daily for 5 days Mupirocin 2022-0 Yes [id number] Apply Ke lsey (BACTROBAN) 12-24 ointment Seyb old 2 % apply 00:00: to each of - externally 00 the nares, Ext jennifer Ointment 2 times a l day for 5 days before surgery Mupirocin 2022-0 Yes [id number] Apply Ke lsey (BACTROBAN) 12-24 ointment Seyb old 2 % apply 00:00: to each of - externally 00 the nares, Ext jennifer Ointment 2 times a l day for 5 days before surgery Mupirocin 2022-0 Yes [id number] Apply Ke lsey (BACTROBAN) 18 ointment Seyb old 2 % apply 00:00: to each of - externally 00 the nares, Ext jennifer Ointment 2 times a l day for 5 days before surgery Mupirocin 2022-0 Yes [id number] Apply Ke lsey (BACTROBAN) 18 ointment Seyb old 2 % apply 00:00: to each of - externally 00 the nares, Ext jennifer Ointment 2 times a l day for 5 days before surgery Mupirocin 2022-0 2022- No [id number] Apply K elsey (BACTROBAN) 12-2409 ointment Sey bold 2 % apply 00:00: 00:00 to each of - externally 00 :00 the nares, Ext jennifer Ointment 2 times a l day for 5 days before surgery Gabapentin 2022-0 Yes [id number] 300mg QD Take 1 Nikole 300 MG oral 7-12 capsule Seybo ld Capsule 00:00: (300 mg - 00 total) by Externa mouth l daily as needed Gabapentin 2022-0 Yes [id number] 300mg QD Take 1 Nikole 300 MG oral 7-12 capsule Seybo ld Capsule 00:00: (300 mg - 00 total) by Externa mouth l daily as needed Gabapentin 2022-0 Yes [id number] 300mg QD Take 1 Nikole 300 MG oral 7-12 capsule Seybo ld Capsule 00:00: (300 mg - 00 total) by Externa mouth l daily as needed Gabapentin 2022-0 Yes [id number] 300mg QD Take 1 Nikole 300 MG oral 7-12 capsule Seybo ld Capsule 00:00: (300 mg - 00 total) by Externa mouth l daily as needed Gabapentin 2022-0 Yes [id number] 300mg QD Take 1 Nikole 300 MG oral 7-12 capsule Seybo ld Capsule 00:00: (300 mg - 00 total) by Externa mouth l daily as needed Gabapentin 2022-0 202- No [id number] 300mg QD Take 1 Nikole 300 MG oral 7-12 03-17 capsule Seyb old Capsule 00:00: 00:00 (300 mg - 00 :00 total) by Externa mouth l daily as needed Triamcinolo 0 3- No [id number] Apply to Nikole co 12-12 skin twice Seybold Acetonide 00:00: 00:00 daily as - 0.1 % apply 00 :00 needed Information Assurance Manager a externally l Ointment Tamoxifen 0 Yes 20mg Take 1 Nikole Citrate 20 6-28 tablet (20 Sey bold MG oral 08:15: mg total) - Tablet 22 by mouth Externa daily l Cholecalcif 2022-0 Yes 1000U Take 1 Ty sey adriane 6-28 tablet Seybold (Vitamin 08:15: (1,000 - D3) 25 MCG 22 units Externa (1000 UT) total) by l oral Tablet mouth daily Tamoxifen 2022-0 Yes 20mg Take 1 Nikole Citrate 20 6-28 tablet (20 Sey bold MG oral 08:15: mg total) - Tablet 22 by mouth Externa daily l Cholecalcif 2022-0 Yes 1000U Take 1 Ty sey adriane 6-28 tablet Seybold (Vitamin 08:15: (1,000 - D3) 25 MCG 22 units Externa (1000 UT) total) by l oral Tablet mouth daily Meloxicam 2022-0 Yes [id number] TAKE 1 Nikole 15 MG oral 6-21 4105 TABLET(15 Seyb old Tablet 00:00: MG) BY - 00 MOUTH Externa DAILY WITH l MEALS. STOP IF UPSET STOMACH Meloxicam 2023-0 Yes [id number] TAKE 1 Nikole 15 MG oral 6-21 4105 TABLET(15 Seyb old Tablet 00:00: MG) BY - 00 MOUTH Externa DAILY WITH l MEALS. STOP IF UPSET STOMACH Meloxicam 2023-0 Yes [id number] TAKE 1 Nikole 15 MG oral 6-21 4105 TABLET(15 Seyb old Tablet 00:00: MG) BY - 00 MOUTH Externa DAILY WITH l MEALS. STOP IF UPSET STOMACH Meloxicam 2023-0 Yes [id number] TAKE 1 Nikole 15 MG oral 6-21 4105 TABLET(15 Seyb old Tablet 00:00: MG) BY - 00 MOUTH Externa DAILY WITH l MEALS. STOP IF UPSET STOMACH Meloxicam 2023-0 Yes [id number] TAKE 1 Nikole 15 MG oral 6-21 4105 TABLET(15 Seyb old Tablet 00:00: MG) BY - 00 MOUTH Externa DAILY WITH l MEALS. STOP IF UPSET STOMACH Meloxicam 3-0 3- No [id number] TAKE 1 Nikole 15 MG oral 6-21 10-09 4105 TABLET(15 Sey bold Tablet 00:00: 00:00 MG) BY - 00 :00 MOUTH Externa DAILY WITH l MEALS. STOP IF UPSET STOMACH Ciprofloxac 3-0 3- No [id number] 250mg Take 1 Nikole in HCl 11-19-12 tablet Seybold (Cipro) 250 00:00: 00:00 (250 mg - MG oral 00 :00 total) by Externa Tablet mouth 2 l times daily Tamoxifen 2023-0 Yes 20mg Take 1 Nikole Citrate 20 6-07 tablet (20 Sey bold MG oral 08:20: mg total) - Tablet 35 by mouth Externa daily l Cholecalcif 2023-0 Yes 1000U Take 1 Ty sey adriane 6-07 tablet Seybold (Vitamin 08:20: (1,000 - D3) 25 MCG 35 units Externa (1000 UT) total) by l oral Tablet mouth daily Tamoxifen 2023-0 Yes 20mg Take 1 Nikole Citrate 20 6-07 tablet (20 Sey bold MG oral 08:20: mg total) - Tablet 35 by mouth Externa daily l Cholecalcif 2023-0 Yes 1000U Take 1 Ty sey adriane 6-07 tablet Seybold (Vitamin 08:20: (1,000 - D3) 25 MCG 35 units Externa (1000 UT) total) by l oral Tablet mouth daily Tamoxifen 3-0 Yes 20mg Take 1 Nikole Citrate 20 5-24 tablet (20 Sey bold MG oral 09:01: mg total) - Tablet 21 by mouth Externa daily l Cholecalcif 2023-0 Yes 1000U Take 1 Ty sey adriane 5-24 tablet Seybold (Vitamin 09:01: (1,000 - D3) 25 MCG 21 units Externa (1000 UT) total) by l oral Tablet mouth daily Aspirin 81 3-0 2023- No 81mg Take 1 Bianka ey MG oral 5-24 05-24 tablet (81 Seybo ld Tablet 09:01: 00:00 mg total) - Delayed 21 :00 by mouth Externa Response l Meloxicam 3-0 Yes [id number] 15mg Take 1 Nikole 15 MG oral 5-24 4105 tablet (15 Sey bold Tablet 00:00: mg total) - 00 by mouth Externa daily Take l with Meals, STOP IF UPSET STOMACH Meloxicam 2023-0 Yes [id number] 15mg Take 1 Nikole 15 MG oral 5-24 4105 tablet (15 Sey bold Tablet 00:00: mg total) - 00 by mouth Externa daily Take l with Meals, STOP IF UPSET STOMACH Meloxicam 2023-0 Yes [id number] 15mg Take 1 Nikole 15 MG oral 5-24 4105 tablet (15 Sey bold Tablet 00:00: mg total) - 00 by mouth Externa daily Take l with Meals, STOP IF UPSET STOMACH Alendronate 2023-0 Yes [id number] TAKE 1 Nikole Sodium 70 5-15 TABLET BY Seybo ld MG oral 00:00: MOUTH 1 - Tablet 00 TIME A Externa WEEK l DIRECTED Alendronate 2023-0 Yes [id number] TAKE 1 Nikole Sodium 70 5-15 TABLET BY Seybo ld MG oral 00:00: MOUTH 1 - Tablet 00 TIME A Externa WEEK l DIRECTED Alendronate 2023-0 Yes [id number] TAKE 1 Nikole Sodium 70 5-15 TABLET BY Seybo ld MG oral 00:00: MOUTH 1 - Tablet 00 TIME A Externa WEEK l DIRECTED Alendronate 3-0 Yes [id number] TAKE 1 Nikole Sodium 70 5-15 TABLET BY Seybo ld MG oral 00:00: MOUTH 1 - Tablet 00 TIME A Externa WEEK l DIRECTED Alendronate 3-0 Yes [id number] TAKE 1 Nikole Sodium 70 5-15 TABLET BY Seybo ld MG oral 00:00: MOUTH 1 - Tablet 00 TIME A Externa WEEK l DIRECTED Alendronate 3-0 Yes [id number] TAKE 1 Nikole Sodium 70 5-15 TABLET BY Seybo ld MG oral 00:00: MOUTH 1 - Tablet 00 TIME A Externa WEEK l DIRECTED Alendronate 3-0 Yes [id number] TAKE 1 Nikole Sodium 70 5-15 TABLET BY Seybo ld MG oral 00:00: MOUTH 1 - Tablet 00 TIME A Externa WEEK l DIRECTED Alendronate 3-0 Yes [id number] TAKE 1 Nikole Sodium 70 5-15 TABLET BY Seybo ld MG oral 00:00: MOUTH 1 - Tablet 00 TIME A Externa WEEK l DIRECTED Alendronate 3-0 2023- No [id number] TAKE 1 Nikole Sodium 70 5-15 10-09 TABLET BY Seyb old MG oral 00:00: 00:00 MOUTH 1 - Tablet 00 :00 TIME A Externa WEEK l DIRECTED Amoxicillin 3-0 2023- No [id number] 1{tbl} Take 1 Nikole -Pot 5-10 05-24 tablet by Seybold Clavulanate 00:00: 00:00 mouth 2 - 875-125 MG 00 :00 times Externa oral Tablet daily l Aspirin 81 3-0 Yes 81mg Take 1 Kelse y MG oral 5-09 tablet (81 Seybol d Tablet 09:23: mg total) - Delayed 16 by mouth Externa Response l Tamoxifen 2023-0 Yes 20mg Take 1 Nikole Citrate 20 5-09 tablet (20 Sey bold MG oral 09:23: mg total) - Tablet 16 by mouth Externa daily l Cholecalcif 3-0 Yes 1000U Take 1 Ty sey adriane 5-09 tablet Seybold (Vitamin 09:23: (1,000 - D3) 25 MCG 16 units Externa (1000 UT) total) by l oral Tablet mouth daily Escitalopra 2023-0 Yes [id number] 5mg Take 1 Nikole m Oxalate 5-09 tablet (5 Seybo ld (Lexapro) 5 00:00: mg total) - MG oral 00 by mouth Externa Tablet daily l Escitalopra 2023-0 2023- No [id number] 5mg Take 1 Nikole m Oxalate 5-09 05-24 tablet (5 Seyb old (Lexapro) 5 00:00: 00:00 mg total) - MG oral 00 :00 by mouth Externa Tablet daily l Alendronate 3-0 Yes [id number] TAKE 1 Nikole Sodium 70 4-04 TABLET BY Seybo ld MG oral 00:00: MOUTH 1 - Tablet 00 TIME A Externa WEEK l DIRECTED Hyalgan Hyalgan 3-0 No 2mL Common 3-29 Spirit 00:00: - [facility] 00 [facility] Hyalgan Hyalgan 2023-0 No 2mL Common 3-29 Spirit 00:00: - CHI 00 [facility] Hyalgan Hyalgan 2023-0 No 2mL Common 3-29 Spirit 00:00: - CHI 00 [facility] Hyalgan Hyalgan 2023-0 No 2mL Common 3-22 Spirit 00:00: - [facility]I 00 [facility] Hyalgan Hyalgan 2023-0 No 2mL Common 3-22 Spirit 00:00: - [facility]I 00 [facility] Hyalgan Hyalgan 2023-0 No 2mL Common 3-22 Spirit 00:00: - [facility]I 00 [facility] Hyalgan Hyalgan 2023-0 No 2mL Common 3-15 Spirit 00:00: - CHI 00 [facility] Hyalgan Hyalgan 2023-0 No 2mL Common 3-15 Spirit 00:00: - CHI 00 [facility] Hyalgan Hyalgan 2023-0 No 2mL Common 3-15 Spirit 00:00: - [facility] 00 [facility] Omeprazole 2023-0 Yes 20mg Take 1 Kelse y 20 MG oral 3-07 capsule Seybol d Delayed 00:00: (20 mg - Release 00 total) by Externa Capsule mouth 2 l times daily Omeprazole 2023-0 Yes 20mg Take 1 Kelse y 20 MG oral 3-07 capsule Seybol d Delayed 00:00: (20 mg - Release 00 total) by Externa Capsule mouth 2 l times daily Omeprazole 2023-0 Yes 20mg Take 1 Kelse y 20 MG oral 3-07 capsule Seybol d Delayed 00:00: (20 mg - Release 00 total) by Externa Capsule mouth 2 l times daily Omeprazole 2023-0 Yes 20mg Take 1 Kelse y 20 MG oral 3-07 capsule Seybol d Delayed 00:00: (20 mg - Release 00 total) by Externa Capsule mouth 2 l times daily Omeprazole 2023-0 Yes 20mg Take 1 Kelse y 20 MG oral 3-07 capsule Seybol d Delayed 00:00: (20 mg - Release 00 total) by Externa Capsule mouth 2 l times daily Omeprazole 2023-0 Yes 20mg Take 1 Kelse y 20 MG oral 3-07 capsule Seybol d Delayed 00:00: (20 mg - Release 00 total) by Externa Capsule mouth 2 l times daily Omeprazole 2023-0 Yes 20mg Take 1 Kelse y 20 MG oral 3-07 capsule Seybol d Delayed 00:00: (20 mg - Release total) by Externa Capsule mouth 2 l times daily Omeprazole 2023-0 Yes 20mg Take 1 Kelse y 20 MG oral 3-07 capsule Seybol d Delayed 00:00: (20 mg - Release total) by Externa Capsule mouth 2 l times daily Omeprazole 2023-0 Yes 20mg Take 1 Kelse y 20 MG oral 3-07 capsule Seybol d Delayed 00:00: (20 mg - Release total) by Externa Capsule mouth 2 l times daily Omeprazole 2023-0 2023- No 20mg Take 1 Bianka ey 20 MG oral 3-07 - capsule Seybo ld Delayed 00:00: 00:00 (20 mg - Release 00 :00 total) by Externa Capsule mouth 2 l times daily Synvisc 16 Synvisc 16 3-0 No Synvisc 16 MG/2ML MG/2ML 2-28 MG/2ML 00:00: 00 Synvisc 16 Synvisc 16 3-0 No Synvisc 16 MG/2ML MG/2ML 2-28 MG/2ML 00:00: 00 Synvisc 16 Synvisc 16 3-0 No Synvisc 16 MG/2ML MG/2ML 2-28 MG/2ML 00:00: 00 Hylan 2022-0 2022- No 2 mL (3 Nikole (Synvisc) 2-03 11- doses) Seybold 16 MG/2ML 00:00: 00:00 Intra-mariano - intra-artic 00 :00 cular one Ext jennifer ular injection l Solution intra-mariano Prefilled cular Leander Syringe knee for 21 days Nitrofurant 2022- No TAKE 1 Ty sey oin Monohyd 07-18 CAPSULE BY Umair zarate Macro 100 00:00: 00:00 MOUTH - MG oral 00 :00 TWICE Externa Capsule DAILY WITH l FOOD FOR 5 DAYS Ramipril 5 2022-0 Yes 5mg Take 1 Kelse y MG oral 1-30 capsule (5 Seybol d Capsule 00:00: mg total) - 00 by mouth Externa daily l Pravastatin 2022-0 Yes 40mg Take 1 Bianka ey Sodium 40 1-30 tablet (40 Seyb old MG oral 00:00: mg total) - Tablet 00 by mouth Externa daily l Ramipril 5 2022-0 Yes 5mg Take 1 Kelse y MG oral 1-30 capsule (5 Seybol d Capsule 00:00: mg total) - 00 by mouth Externa daily l Pravastatin 2022-0 Yes 40mg Take 1 Bianka ey Sodium 40 1-30 tablet (40 Seyb old MG oral 00:00: mg total) - Tablet 00 by mouth Externa daily l Ramipril 5 2022-0 Yes 5mg Take 1 Kelse y MG oral 1-30 capsule (5 Seybol d Capsule 00:00: mg total) - 00 by mouth Externa daily l Pravastatin 2022-0 Yes 40mg Take 1 Bianka ey Sodium 40 1-30 tablet (40 Seyb old MG oral 00:00: mg total) - Tablet 00 by mouth Externa daily l Ramipril 5 2022-0 Yes 5mg Take 1 Kelse y MG oral 1-30 capsule (5 Seybol d Capsule 00:00: mg total) - 00 by mouth Externa daily l Pravastatin 3-0 Yes 40mg Take 1 Bianka ey Sodium 40 1-30 tablet (40 Seyb old MG oral 00:00: mg total) - Tablet 00 by mouth Externa daily l Ramipril 5 2022-0 Yes 5mg Take 1 Kelse y MG oral 1-30 capsule (5 Seybol d Capsule 00:00: mg total) - 00 by mouth Externa daily l Pravastatin 2022-0 Yes 40mg Take 1 Bianka ey Sodium 40 1-30 tablet (40 Seyb old MG oral 00:00: mg total) - Tablet 00 by mouth Externa daily l Ramipril 5 2022-0 Yes 5mg Take 1 Kelse y MG oral 1-30 capsule (5 Seybol d Capsule 00:00: mg total) - 00 by mouth Externa daily l Pravastatin 2022-0 Yes 40mg Take 1 Bianka ey Sodium 40 1-30 tablet (40 Seyb old MG oral 00:00: mg total) - Tablet 00 by mouth Externa daily l Ramipril 5 2022-0 Yes 5mg Take 1 Kelse y MG oral 1-30 capsule (5 Seybol d Capsule 00:00: mg total) - 00 by mouth Externa daily l Pravastatin 2022-0 Yes 40mg Take 1 Bianka ey Sodium 40 1-30 tablet (40 Seyb old MG oral 00:00: mg total) - Tablet 00 by mouth Externa daily l Ramipril 5 2022-0 Yes 5mg Take 1 Kelse y MG oral 1-30 capsule (5 Seybol d Capsule 00:00: mg total) - 00 by mouth Externa daily l Pravastatin 2022-0 Yes 40mg Take 1 Bianka ey Sodium 40 1-30 tablet (40 Seyb old MG oral 00:00: mg total) - Tablet 00 by mouth Externa daily l Ramipril 5 2022-0 Yes 5mg Take 1 Kelse y MG oral 1-30 capsule (5 Seybol d Capsule 00:00: mg total) - 00 by mouth Externa daily l Pravastatin 2022-0 Yes 40mg Take 1 Bianka ey Sodium 40 1-30 tablet (40 Seyb old MG oral 00:00: mg total) - Tablet 00 by mouth Externa daily l Ramipril 5 2022-0 2022- No 5mg Take 1 Bianka ey MG oral 1-30 10-09 capsule (5 Seybo ld Capsule 00:00: 00:00 mg total) - 00 :00 by mouth Externa daily l Pravastatin 2022-0 3- No 40mg Take 1 Ty sey Sodium 40 30 - tablet (40 Sey bold MG oral 00:00: 00:00 mg total) - Tablet 00 :00 by mouth Externa daily l Amlodipine 2022-0 2022- No 5mg Take 1 Bianka ey Besylate 07-04 05- tablet (5 Seybo ld (NORVASC) 5 00:00: 00:00 mg total) - MG oral 00 :00 by mouth Externa Tablet daily l Lidocaine Lidocaine 2022-0 No 10mg Com 06-17 [facility] 00:[facility]: - [facility] Kenalog Kenalog 2022-0 No 40mg Common (Triamcinol (Triamcinol 1-09 S pirit one) one) 00:00: - [facility] Lidocaine Lidocaine 3-0 No 10mg Com 06-17 [facility] 00:00: - [facility] Kenalog Kenalog 2022-0 No 40mg Common (Triamcinol (Triamcinol 1-09 S pirit one) one) 00:00: - [facility] Lidocaine Lidocaine 3-0 No 10mg Com 06-17 [facility] 00:00: - [facility] Kenalog Kenalog 3-0 No 40mg Common (Triamcinol (Triamcinol 1-09 S pirit one) one) 00:00: - [facility] Kenalog Kenalog 3-0 No 40mg Common (Triamcinol (Triamcinol 1-09 S pirit one) one) 00:00: - [facility] Lidocaine Lidocaine 3-0 No 10mg Com 06-17 [facility] 00:00: - [facility] Kenalog Kenalog 3-0 No 40mg Common (Triamcinol (Triamcinol 1-09 S pirit one) one) 00:00: - [facility] Lidocaine Lidocaine 3-0 No 10mg Com 06-17 [facility] 00:00: - [facility] Kenalog Kenalog 3-0 No 40mg Common (Triamcinol (Triamcinol 1-09 S pirit one) one) 00:00: - [facility] Lidocaine Lidocaine 2022-0 No 10mg Com mon 1-09 [facility] 00:00: - [facility] Trualog Kenalog 2021- No 40mg Common (Triamcinol (Triamcinol 2-15 S pirit one) one) 00:00: - [facility] Lidocaine Lidocaine 2021-1 No 10mg Com mon 2-15 [facility] 00:00: - [facility] Kenalog Kenalog 2021-06 No 40mg Common (Triamcinol (Triamcinol 2-15 S pirit one) one) 00:00: - [facility] Lidocaine Lidocaine 2021-1 No 10mg Com mon 2-15 [facility] 00:00: - [facility] Kenalog Kenalog 2021-06 No 40mg Common (Triamcinol (Triamcinol 2-15 S pirit one) one) 00:00: - [facility] Lidocaine Lidocaine 2021-1 No 10mg Com mon 2-15 [facility] 00:00: - [facility] Kenalog Kenalog 2021-06 No 40mg Common (Triamcinol (Triamcinol 2-15 S pirit one) one) 00:00: - [facility] Lidocaine Lidocaine 2021-1 No 10mg Com mon 2-15 [facility] 00:00: - [facility] Kenalog Kenalog 2021- No 40mg Common (Triamcinol (Triamcinol 2-15 S pirit one) one) 00:00: - [facility] Lidocaine Lidocaine 2021-1 No 10mg Com mon 2-15 [facility] 00:00: - [facility] Lidocaine Lidocaine 2021-1 No 10mg Com mon 2-15 [facility] 00:00: - [facility] Kenalog Kenalog 2021-1 No 40mg Common (Triamcinol (Triamcinol 2-15 S pirit one) one) 00:00: - [facility] Lidocaine Lidocaine 2021-1 No 10mg Com mon 2-15 [facility] 00:00: - [facility] Kenalog Kenalog 2021- No 40mg Common (Triamcinol (Triamcinol 2-15 S pirit one) one) 00:00: - [facility] Lidocaine Lidocaine 2021-06 No 10mg Com mon 2-15 [facility] 00:00: - [facility] Kenalog Kenalog 2021-06 No 40mg Common (Triamcinol (Triamcinol 2-15 S pirit one) one) 00:00: - [facility] Administere 2021-06 No Administer Nikole d 2-07 ed Seybold Medications 11:00: Medication - Medication 54 sMedicatio Ext jennifer OrderMAR n OrderMAR l ActionActio ActionActi n on DateDoseRat DateDoseRa eSiteKenalo teSiteKena gGiven/10/ logGiven mgKenalogGi mgKenalogG ven iven6//2 240 [id number] mgKenalogGi mgKenalogG ven iven 240 83757 mgORTHO, mgORTHO, PHYSICIAN PHYSICIAN ADMINISTERE ADMINISTER DGiven6/20/ EDGiven6/2 mgORTHO, mgORTHO, PHYSICIAN PHYSICIAN ADMINISTERE ADMINISTER DGiven// EDGiven1/3 mgORTHO, mgORTHO, PHYSICIAN PHYSICIAN ADMINISTERE ADMINISTER DGiven/10/ EDGiven1/1 mg mg Administere 2021-06 No Administer Nikole d 2-07 ed Seybold Medications 11:00: Medication - Medication 54 sMedicatio Ext jennifer OrderMAR n OrderMAR l ActionActio ActionActi n on DateDoseRat DateDoseRa eSiteKenalo teSiteKena gGiven1/10/ logGiven mgKenalogGi mgKenalogG ven iven6//2 [phone] mgKenalogGi mgKenalogG ven iven/31/ 240 62825 mgORTHO, mgORTHO, PHYSICIAN PHYSICIAN ADMINISTERE ADMINISTER DGiven6/20/ EDGiven6/2 mgORTHO, mgORTHO, PHYSICIAN PHYSICIAN ADMINISTERE ADMINISTER DGiven07/09/ EDGiven1/3 mgORTHO, mgORTHO, PHYSICIAN PHYSICIAN ADMINISTERE ADMINISTER DGiven06/18/ EDGiven06/09 mg 0 mg Administere 2021-06 No Administer Nikole d 2-07 ed Seybold Medications 11:00: Medication - Medication 54 sMedicatio Ext jennifer OrderMAR n OrderMAR l ActionActio ActionActi n on DateDoseRat DateDoseRa eSiteKenalo teSiteKena gGiven06/18/ logGiven mgKenalogGi mgKenalogG ven iven 240 03290 mgKenalogGi mgKenalogG ven iven 240 91718 mgORTHO, mgORTHO, PHYSICIAN PHYSICIAN ADMINISTERE ADMINISTER DGiven11/26/ EDGiven6/2 mgORTHO, mgORTHO, PHYSICIAN PHYSICIAN ADMINISTERE ADMINISTER DGiven07/09/ EDGiven1/3 mgORTHO, mgORTHO, PHYSICIAN PHYSICIAN ADMINISTERE ADMINISTER DGiven06/18/ EDGiven06/09 mg mg Administere 2021-06 No Administer Nikole d 2-07 ed Seybold Medications 11:00: Medication - Medication 54 sMedicatio Ext jennifer OrderMAR n OrderMAR l ActionActio ActionActi n on DateDoseRat DateDoseRa eSiteKenalo teSiteKena gGiven06/18/ logGiven mgKenalogGi mgKenalogG ven iven//2 240 72975 mgKenalogGi mgKenalogG ven iven 240 93010 mgORTHO, mgORTHO, PHYSICIAN PHYSICIAN ADMINISTERE ADMINISTER DGiven6// EDGiven6/2 mgORTHO, mgORTHO, PHYSICIAN PHYSICIAN ADMINISTERE ADMINISTER DGiven07/09/ EDGiven1/3 mgORTHO, mgORTHO, PHYSICIAN PHYSICIAN ADMINISTERE ADMINISTER DGiven/10/ EDGiven1/ mg 0 mg Administere 2021-06 No Administer Nikole d 2- ed Seybold Medications 11:00: Medication - Medication 54 sMedicatio Ext jennifer OrderMAR n OrderMAR l ActionActio ActionActi n on DateDoseRat DateDoseRa eSiteKenalo teSiteKena gGiven06/18/ logGiven mgKenalogGi mgKenalogG ven iven/29/07 240 19319 mgKenalogGi mgKenalogG ven iven 240 74965 mgORTHO, mgORTHO, PHYSICIAN PHYSICIAN ADMINISTERE ADMINISTER DGiven// EDGiven6/2 mgORTHO, mgORTHO, PHYSICIAN PHYSICIAN ADMINISTERE ADMINISTER DGiven07/09/ EDGiven1/3 mgORTHO, mgORTHO, PHYSICIAN PHYSICIAN ADMINISTERE ADMINISTER DGiven06/18/ EDGiven/ mg 0 mg Administere 2021-06 No Administer Nikole d 2-07 ed Seybold Medications 11:00: Medication - Medication 54 sMedicatio Ext jennifer OrderMAR n OrderMAR l ActionActio ActionActi n on DateDoseRat DateDoseRa eSiteKenalo teSiteKena gGiven06/18/ logGiven mgKenalogGi mgKenalogG ven iven2 240 94223 mgKenalogGi mgKenalogG ven iven2 240 52975 mgORTHO, mgORTHO, PHYSICIAN PHYSICIAN ADMINISTERE ADMINISTER DGiven// EDGiven6/2 mgORTHO, mgORTHO, PHYSICIAN PHYSICIAN ADMINISTERE ADMINISTER DGiven07/09/ EDGiven1/3 mgORTHO, mgORTHO, PHYSICIAN PHYSICIAN ADMINISTERE ADMINISTER DGiven/10/ EDGiven1/ mg 0 mg Aspirin 81 2021-06 Yes 1{tbl} Take 1 Ty sey MG oral 2-07 tablet by Seybold Tablet 10:10: mouth - Delayed 03 Externa Response l Amlodipine 2021-06 Yes 5mg Take 5 mg Ke lsey Besylate 5 2-07 by mouth Seybo ld MG oral 10:10: daily - Tablet 03 Externa l Tamoxifen 2021-06 Yes 20mg Take 20 mg Ke lsey Citrate 20 2-07 by mouth Seybo ld MG oral 10:10: daily - Tablet 03 Externa l Omeprazole 2021-06 Yes 20mg Take 20 mg K elsey 20 MG oral 2-07 by mouth Seybo ld Delayed 10:10: daily - Release 03 Externa Capsule l Cholecalcif 2021-06 Yes 1000U Take 1,000 Nikole adriane 2-07 units by Seybold (Vitamin 10:10: mouth - D3) 25 MCG 03 daily Externa (1000 UT) l oral Tablet Trimethopri 2021-06 Yes 1{tbl} Take 1 Ke lsey m 100 MG 1-23 tablet by Seybol d oral Tablet 00:00: mouth - 00 daily Externa l Trimethopri 2021-06 Yes 100mg Take 1 Ty sey m 100 MG 1-23 tablet Seybold oral Tablet 00:00: (100 mg - 00 total) by Externa mouth l daily Trimethopri 2021-06- No 100mg Take 1 Ke lsey m 100 MG 1-23 05-24 tablet Seybold oral Tablet 00:00: 00:00 (100 mg - 00 :00 total) by Externa mouth l daily Acetaminoph Acetaminoph 2021-06 No 1{table Acetaminop en-Codeine en-Codeine - t_as_ne hen-Codein #3 300-30 #3 300-30 00:00: eded} e #3 MG MG 00 300-30 MG Acetaminoph Acetaminoph 2021-06 No 1{table Acetaminop en-Codeine en-Codeine - t_as_ne hen-Codein #3 300-30 #3 300-30 00:00: eded} e #3 MG MG 00 300-30 MG Acetaminoph Acetaminoph 2021-06 No 1{table Acetaminop en-Codeine en-Codeine 1- t_as_ne hen-Codein #3 300-30 #3 300-30 00:00: eded} e #3 MG MG 00 300-30 MG Acetaminoph Acetaminoph 2022-1 No 1{table Acetaminop en-Codeine en-Codeine 1-01 t_as_ne hen-Codein #3 300-30 #3 300-30 00:00: eded} e #3 MG MG 00 300-30 MG Acetaminoph Acetaminoph 2022-1 No 1{table Acetaminop en-Codeine en-Codeine 1-01 t_as_ne hen-Codein #3 300-30 #3 300-30 00:00: eded} e #3 MG MG 00 300-30 MG Acetaminoph Acetaminoph 2022-1 No 1{table Acetaminop en-Codeine en-Codeine 1- t_as_ne hen-Codein #3 300-30 #3 300-30 00:00: eded} e #3 MG MG 00 300-30 MG Acetaminoph Acetaminoph 2022-1 No 1{table Acetaminop en-Codeine en-Codeine 1- t_as_ne hen-Codein #3 300-30 #3 300-30 00:00: eded} e #3 MG MG 00 300-30 MG Acetaminoph Acetaminoph 2022-1 No 1{table Acetaminop en-Codeine en-Codeine 1- t_as_ne hen-Codein #3 300-30 #3 300-30 00:00: eded} e #3 MG MG 00 300-30 MG Acetaminoph Acetaminoph 2022-1 No 1{table Acetaminop en-Codeine en-Codeine 1- t_as_ne hen-Codein #3 300-30 #3 300-30 00:00: eded} e #3 MG MG 00 300-30 MG Acetaminoph Acetaminoph 2022-1 No 1{table Acetaminop en-Codeine en-Codeine 1-01 t_as_ne hen-Codein #3 300-30 #3 300-30 00:00: eded} e #3 MG MG 00 300-30 MG Acetaminoph Acetaminoph 2022-1 No 1{table Acetaminop en-Codeine en-Codeine 1- t_as_ne hen-Codein #3 300-30 #3 300-30 00:00: eded} e #3 MG MG 00 300-30 MG Acetaminoph Acetaminoph 2021-06 No 1{table Acetaminop en-Codeine en-Codeine 0-28 t_as_ne hen-Codein #3 300-30 #3 300-30 00:00: eded} e #3 MG MG 00 300-30 MG Pravastatin 2021-06 Yes 40mg Take 40 mg Nikole Sodium 40 0-23 by mouth Seybol d MG oral 00:00: daily - Tablet 00 Externa l Ramipril 5 2021-06 Yes 5mg Take 5 mg Ke lsey MG oral 0-23 by mouth Seybold Capsule 00:00: daily - 00 Externa l Gabapentin 2021-06 Yes 300mg Take 1 Bianka ey 300 MG oral 0-13 capsule Seybo ld Capsule 00:00: (300 mg - 00 total) by Externa mouth 3 l times daily Gabapentin 2021-06 Yes 300mg Take 1 Bianka ey 300 MG oral 0-13 capsule Seybo ld Capsule 00:00: (300 mg - 00 total) by Externa mouth 3 l times daily Gabapentin 2021-06 Yes 300mg Take 300 Ke lsey 300 MG oral 0-13 mg by Seybold Capsule 00:00: mouth 3 - 00 times Externa daily l Gabapentin 2021-06 Yes 300mg Take 1 Bianka ey 300 MG oral 0-13 capsule Seybo ld Capsule 00:00: (300 mg - 00 total) by Externa mouth 3 l times daily Gabapentin 2021-06 Yes 300mg Take 1 Bianka ey 300 MG oral 0-13 capsule Seybo ld Capsule 00:00: (300 mg - 00 total) by Externa mouth 3 l times daily Gabapentin 2021-06- No 300mg Take 1 Ty sey 300 MG oral 0-13 07-12 capsule Seyb old Capsule 00:00: 00:00 (300 mg - 00 :00 total) by Externa mouth 3 l times daily Alendronate 2021-06 Yes TAKE 1 Bianka ey Sodium 70 0-04 TABLET BY Seybo ld MG oral 00:00: MOUTH 1 - Tablet 00 TIME A Externa WEEK l DIRECTED Kenalog Kenalog 2022-0 No 40mg Common (Triamcinol (Triamcinol 6-20 S pirit one) one) 00:00: - [facility] Lidocaine Lidocaine 2-0 No 10mg Com mon 6-20 [facility] 00:00: - [facility] Kenalog Kenalog 2-0 No 40mg Common (Triamcinol (Triamcinol 6-20 S pirit one) one) 00:00: - [facility] Lidocaine Lidocaine 2-0 No 10mg Com mon 6-20 [facility] 00:00: - [facility] Kenalog Kenalog 2-0 No 40mg Common (Triamcinol (Triamcinol 6-20 S pirit one) one) 00:00: - [facility] Lidocaine Lidocaine 2-0 No 10mg Com mon 6-20 [facility] 00:00: - [facility] Kenalog Kenalog 2-0 No 40mg Common (Triamcinol (Triamcinol 6-20 S pirit one) one) 00:00: - [facility] Lidocaine Lidocaine 2-0 No 10mg Com mon 6-20 [facility] 00:00: - [facility] Kenalog Kenalog 2-0 No 40mg Common (Triamcinol (Triamcinol 6-20 S pirit one) one) 00:00: - [facility] Lidocaine Lidocaine 2-0 No 10mg Com mon 6-20 [facility] 00:00: - [facility] Kenalog Kenalog 2-0 No 40mg Common (Triamcinol (Triamcinol 6-20 S pirit one) one) 00:00: - [facility] Lidocaine Lidocaine 2-0 No 10mg Com mon 6-20 [facility] 00:00: - [facility] Kenalog Kenalog 2-0 No 40mg Common (Triamcinol (Triamcinol 6-20 S pirit one) one) 00:00: - [facility] Lidocaine Lidocaine 2-0 No 10mg Com mon 6-20 [facility] 00:00: - [facility] Kenalog Kenalog 2-0 No 40mg Common (Triamcinol (Triamcinol 6-20 S pirit one) one) 00:00: - [facility] Lidocaine Lidocaine 2-0 No 10mg Com mon 6-20 [facility] 00:00: - [facility] Kenalog Kenalog 2-0 No 40mg Common (Triamcinol (Triamcinol 6-20 S pirit one) one) 00:00: - [facility] Lidocaine Lidocaine 2-0 No 10mg Com mon 6-20 [facility] 00:00: - [facility] Kenalog Kenalog 2-0 No 40mg Common (Triamcinol (Triamcinol 6-20 S pirit one) one) 00:00: - [facility] Lidocaine Lidocaine 2-0 No 10mg Com mon 6-20 [facility] 00:00: - [facility] Kenalog Kenalog 2-0 No 40mg Common (Triamcinol (Triamcinol 6-20 S pirit one) one) 00:00: - [facility] Lidocaine Lidocaine 2-0 No 10mg Com mon 6-20 [facility] 00:00: - [facility] Kenalog Kenalog 2-0 No 40mg Common (Triamcinol (Triamcinol 6-20 S pirit one) one) 00:00: - [facility] Lidocaine Lidocaine 2-0 No 10mg Com mon 6-20 [facility] 00:00: - [facility] Kenalog Kenalog 2-0 No 40mg Common (Triamcinol (Triamcinol 6-20 S pirit one) one) 00:00: - [facility] Lidocaine Lidocaine 2-0 No 10mg Com mon 6-20 [facility] 00:00: - [facility] Kenalog Kenalog 2-0 No 40mg Common (Triamcinol (Triamcinol 6-20 S pirit one) one) 00:00: - [facility] Lidocaine Lidocaine 2-0 No 10mg Com mon 6-20 [facility] 00:00: - [facility] Kenalog Kenalog 2-0 No 40mg Common (Triamcinol (Triamcinol 6-20 S pirit one) one) 00:00: - [facility] Kenalog Kenalog 2-0 No 40mg Common (Triamcinol (Triamcinol 6-20 S pirit one) one) 00:00: - [facility] Lidocaine Lidocaine 2-0 No 10mg Com mon 11-26 [facility] 00:00: - [facility] Lidocaine Lidocaine 2-0 No 10mg Com mon 11-26 [facility] 00:00: - [facility] Kenalog Kenalog 2-0 No 40mg Common (Triamcinol (Triamcinol 6-20 S pirit one) one) 00:00: - [facility] Lidocaine Lidocaine 2-0 No 10mg Com mon 11-26 [facility] 00:00: - [facility] Kenalog Kenalog 2-0 No 40mg Common (Triamcinol (Triamcinol 6-20 S pirit one) one) 00:00: - [facility] Lidocaine Lidocaine 2-0 No 10mg Com mon 11-26 [facility] 00:00: - [facility] Kenalog Kenalog 2-0 No 40mg Common (Triamcinol (Triamcinol 6-20 S pirit one) one) 00:00: - [facility] Lidocaine Lidocaine 2-0 No 10mg Com mon 11-26 [facility] 00:00: - [facility] Kenalog Kenalog 2-0 No 40mg Common (Triamcinol (Triamcinol 6-20 S pirit one) one) 00:00: - [facility] Lidocaine Lidocaine 2-0 No 10mg Com mon 11-26 [facility] 00:00: - [facility] Lidocaine Lidocaine 2022-0 No 10mg Com mon 07-09 [facility] 00:00: - [facility] Kenalog Kenalog 2-0 No 40mg Common (Triamcinol (Triamcinol 1-31 S pirit one) one) 00:00: - [facility] Lidocaine Lidocaine 2022-0 No 10mg Com 07-09 [facility] 00:00: - [facility] Kenalog Kenalog 2-0 No 40mg Common (Triamcinol (Triamcinol 1-31 S pirit one) one) 00:00: - [facility] Lidocaine Lidocaine 2-0 No 10mg Com 07-09 [facility] 00:00: - [facility] Kenalog Kenalog 2-0 No 40mg Common (Triamcinol (Triamcinol 1-31 S pirit one) one) 00:00: - [facility] Lidocaine Lidocaine 2-0 No 10mg Com 07-09 [facility] 00:00: - [facility] Kenalog Kenalog 2-0 No 40mg Common (Triamcinol (Triamcinol 1-31 S pirit one) one) 00:00: - [facility] Lidocaine Lidocaine 2-0 No 10mg Com 07-09 [facility] 00:00: - [facility] Kenalog Kenalog 2-0 No 40mg Common (Triamcinol (Triamcinol 1-31 S pirit one) one) 00:00: - [facility] Lidocaine Lidocaine 2-0 No 10mg Com 07-09 [facility] 00:00: - [facility] Kenalog Kenalog 2-0 No 40mg Common (Triamcinol (Triamcinol 1-31 S pirit one) one) 00:00: - [facility] Lidocaine Lidocaine 2-0 No 10mg Com 07-09 [facility] 00:00: - [facility] Kenalog Kenalog 2-0 No 40mg Common (Triamcinol (Triamcinol 1-31 S pirit one) one) 00:00: - [facility] Lidocaine Lidocaine 2-0 No 10mg Com 07-09 [facility] 00:00: - [facility] Kenalog Kenalog 2-0 No 40mg Common (Triamcinol (Triamcinol 1-31 S pirit one) one) 00:00: - [facility] Lidocaine Lidocaine 2022-0 No 10mg Com 07-09 [facility] 00:00: - [facility] Trualog Kenalog 2-0 No 40mg Common (Triamcinol (Triamcinol 1-31 S pirit one) one) 00:00: - [facility] Lidocaine Lidocaine 2-0 No 10mg Com 07-09 [facility] 00:00: - [facility] Kenalog Kenalog 2-0 No 40mg Common (Triamcinol (Triamcinol 1-31 S pirit one) one) 00:00: - [facility] Lidocaine Lidocaine 2-0 No 10mg Com 07-09 [facility] 00:00: - [facility] Kenalog Kenalog 2-0 No 40mg Common (Triamcinol (Triamcinol 1-31 S pirit one) one) 00:00: - [facility] Lidocaine Lidocaine 2-0 No 10mg Com 07-09 [facility] 00:00: - [facility] Kenalog Kenalog 2-0 No 40mg Common (Triamcinol (Triamcinol 1-31 S pirit one) one) 00:00: - [facility] Lidocaine Lidocaine 2-0 No 10mg Com 07-09 [facility] 00:00: - [facility] Trualog Kenalog 2-0 No 40mg Common (Triamcinol (Triamcinol 1-31 S pirit one) one) 00:00: - [facility] Lidocaine Lidocaine 2-0 No 10mg Com 07-09 [facility] 00:00: - [facility] Kenalog Kenalog 2-0 No 40mg Common (Triamcinol (Triamcinol 1-31 S pirit one) one) 00:00: - [facility] Lidocaine Lidocaine 2-0 No 10mg Com 07-09 [facility] 00:00: - [facility] Kenalog Kenalog 2-0 No 40mg Common (Triamcinol (Triamcinol 1-31 S pirit one) one) 00:00: - [facility] Lidocaine Lidocaine 2022-0 No 10mg Com 07-09 [facility] 00:00: - [facility] Lidocaine Lidocaine 2-0 No 10mg Com 07-09 [facility] 00:00: - [facility] Kenalog Kenalog 2-0 No 40mg Common (Triamcinol (Triamcinol 1-31 S pirit one) one) 00:00: - [facility] Kenalog Kenalog 2-0 No 40mg Common (Triamcinol (Triamcinol 1-31 S pirit one) one) 00:00: - [facility] Kenalog Kenalog 2-0 No 40mg Common (Triamcinol (Triamcinol 1-31 S pirit one) one) 00:00: - [facility] Lidocaine Lidocaine 2-0 No 10mg Com 07-09 [facility] 00:00: - [facility] Kenalog Kenalog 2-0 No 40mg Common (Triamcinol (Triamcinol 1-31 S pirit one) one) 00:00: - [facility] Lidocaine Lidocaine 2-0 No 10mg Com 07-09 [facility] 00:00: - [facility] Kenalog Kenalog 2-0 No 40mg Common (Triamcinol (Triamcinol 1-31 S pirit one) one) 00:00: - [facility] Lidocaine Lidocaine 2022-0 No 10mg Com 07-09 [facility] 00:00: - [facility] Lidocaine Lidocaine 2022-0 No 10mg Com 06-18 [facility] 00:00: - [facility] Kenalog Kenalog 2-0 No 40mg Common (Triamcinol (Triamcinol 1-10 S pirit one) one) 00:00: - [facility] Lidocaine Lidocaine 2022-0 No 10mg Com 06-18 [facility] 00:00: - [facility] Kenalog Kenalog 2022-0 No 40mg Common (Triamcinol (Triamcinol 1-10 S pirit one) one) 00:00: - [facility] Lidocaine Lidocaine 2022-0 No 10mg Com 06-18 [facility] 00:00: - [facility] Kenalog Kenalog 2-0 No 40mg Common (Triamcinol (Triamcinol 1-10 S pirit one) one) 00:00: - [facility] Lidocaine Lidocaine 2-0 No 10mg Com mon -10 [facility] 00:00: - [facility] Kenalog Kenalog 2-0 No 40mg Common (Triamcinol (Triamcinol 1-10 S pirit one) one) 00:00: - [facility] Lidocaine Lidocaine 2022-0 No 10mg Com mon -10 [facility] 00:00: - [facility] Kenalog Kenalog 2-0 No 40mg Common (Triamcinol (Triamcinol 1-10 S pirit one) one) 00:00: - [facility] Lidocaine Lidocaine 2022-0 No 10mg Com mon 06-18 [facility] 00:00: - [facility] Kenalog Kenalog 2-0 No 40mg Common (Triamcinol (Triamcinol 1-10 S pirit one) one) 00:00: - [facility] Lidocaine Lidocaine 2-0 No 10mg Com mon -10 [facility] 00:00: - [facility] Kenalog Kenalog 2-0 No 40mg Common (Triamcinol (Triamcinol 1-10 S pirit one) one) 00:00: - [facility] Lidocaine Lidocaine 2022-0 No 10mg Com mon 06-18 [facility] 00:00: - [facility] Kenalog Kenalog 2-0 No 40mg Common (Triamcinol (Triamcinol 1-10 S pirit one) one) 00:00: - [facility] Lidocaine Lidocaine 2022-0 No 10mg Com mon 10 [facility] 00:00: - [facility] Kenalog Kenalog 2-0 No 40mg Common (Triamcinol (Triamcinol 1-10 S pirit one) one) 00:00: - [facility] Lidocaine Lidocaine 2022-0 No 10mg Com mon 06-18 Spirit 00:00: - [facility] [place] [facility] Kenalog Kenalog 2-0 No 40mg Common (Triamcinol (Triamcinol 1-10 S pirit one) one) 00:00: - [facility] [place] [facility] Lidocaine Lidocaine 2-0 No 10mg Com mon -10 Spirit 00:00: - [facility] [place] [facility] Kenalog Kenalog 2-0 No 40mg Common (Triamcinol (Triamcinol 1-10 S pirit one) one) 00:00: - [facility] [place] [facility] Lidocaine Lidocaine 2022-0 No 10mg Com mon -10 Spirit 00:00: - [facility] [place] [facility] Kenalog Kenalog 2-0 No 40mg Common (Triamcinol (Triamcinol 1-10 S pirit one) one) 00:00: - [facility] [place] [facility] Lidocaine Lidocaine 2-0 No 10mg Com mon -10 Spirit 00:00: - [facility] [place] [facility] Kenalog Kenalog 2-0 No 40mg Common (Triamcinol (Triamcinol 1-10 S pirit one) one) 00:00: - [facility] [place] [facility] Lidocaine Lidocaine 2-0 No 10mg Com mon -10 Spirit 00:00: - [facility] [place] [facility] Kenalog Kenalog 2-0 No 40mg Common (Triamcinol (Triamcinol 1-10 S pirit one) one) 00:00: - [facility] [place] [facility] Lidocaine Lidocaine 2-0 No 10mg Com mon -10 Spirit 00[facility]00: - [facility] [place] [facility] [facility] Lid[facility]aine Lidocaine 2-0 No 10mg Com mon -10 [facility]: - [facility] Kenalog Kenalog 2-0 No 40mg Common (Triamcinol (Triamcinol 1-10 S pirit one) one) 00:00: - [facility] Lidocaine Lidocaine 2022-0 No 10mg Com mon -10 [facility] 00:00: - [facility] Kenalog Kenalog 2-0 No 40mg Common (Triamcinol (Triamcinol 1-10 S pirit one) one) 00:00: - [facility] Kenalog Kenalog 2022-0 No 40mg Common (Triamcinol (Triamcinol 1-10 S pirit one) one) 00:00: - [facility] Lidocaine Lidocaine 2-0 No 10mg Com mon 06-18 [facility] 00:00: - [facility] Kenalog Kenalog 2-0 No 40mg Common (Triamcinol (Triamcinol 1-10 S pirit one) one) 00:00: - [facility] Lidocaine Lidocaine 2-0 No 10mg Com mon 06-18 [facility] 00:00: - [facility] Kenalog Kenalog 2-0 No 40mg Common (Triamcinol (Triamcinol 1-10 S pirit one) one) 00:00: - [facility] Lidocaine Lidocaine 2-0 No 10mg Com 06-18 [facility] 00:00: - [facility] Kenalog Kenalog 2-0 No 40mg Common (Triamcinol (Triamcinol 1-10 S pirit one) one) 00:00: - [facility] Estradiol Estradiol 2018-06 No Estradiol 0.1 MG/GM 0.1 MG/GM 0-21 0.1 MG/GM 00:00: 00 Estradiol Estradiol 2018-06 No Estradiol 0.1 MG/GM 0.1 MG/GM 0-21 0.1 MG/GM 00:00: 00 Estradiol Estradiol 2018-06 No Estradiol 0.1 MG/GM 0.1 MG/GM 0-21 0.1 MG/GM 00:00: 00 Estradiol Estradiol 2018-06 No Estradiol 0.1 MG/GM 0.1 MG/GM 0-21 0.1 MG/GM 00:00: 00 Estradiol Estradiol 2018-06 No Estradiol 0.1 MG/GM 0.1 MG/GM 0-21 0.1 MG/GM 00:00: 00 Estradiol Estradiol 2018-06 No Estradiol 0.1 MG/GM 0.1 MG/GM 0-21 0.1 MG/GM 00:00: 00 Estradiol Estradiol 2018-06 No Estradiol 0.1 MG/GM 0.1 MG/GM 0-21 0.1 MG/GM 00:00: 00 Estradiol Estradiol 2018-06 No Estradiol 0.1 MG/GM 0.1 MG/GM 0-21 0.1 MG/GM 00:00: 00 Estradiol Estradiol 2018-06 No Estradiol 0.1 MG/GM 0.1 MG/GM 0-21 0.1 MG/GM 00:00: 00 Estradiol Estradiol 2018-06 No Estradiol 0.1 MG/GM 0.1 MG/GM 0-21 0.1 MG/GM 00:00: 00 Estradiol Estradiol 2018-06 No Estradiol 0.1 MG/GM 0.1 MG/GM 0-21 0.1 MG/GM 00:00: 00 Estradiol Estradiol 2018-06 No Estradiol 0.1 MG/GM 0.1 MG/GM 0-21 0.1 MG/GM 00:00: 00 Estradiol Estradiol 2018-06 No Estradiol 0.1 MG/GM 0.1 MG/GM 0-21 0.1 MG/GM 00:00: 00 Estradiol Estradiol 2018-06 No Estradiol 0.1 MG/GM 0.1 MG/GM 0-21 0.1 MG/GM 00:00: 00 Estradiol Estradiol 2018-06 No Estradiol 0.1 MG/GM 0.1 MG/GM 0-21 0.1 MG/GM 00:00: 00 Estradiol Estradiol 2018-06 No Estradiol 0.1 MG/GM 0.1 MG/GM 0-21 0.1 MG/GM 00:00: 00 Estradiol Estradiol 2018-06 No Estradiol 0.1 MG/GM 0.1 MG/GM 0-21 0.1 MG/GM 00:00: 00 Estradiol Estradiol 2018-06 No Estradiol 0.1 MG/GM 0.1 MG/GM 0-21 0.1 MG/GM 00:00: 00 Estradiol Estradiol 2018-06 No Estradiol 0.1 MG/GM 0.1 MG/GM 0-21 0.1 MG/GM 00:00: 00 Estradiol Estradiol 2018-06 No Estradiol 0.1 MG/GM 0.1 MG/GM 0-21 0.1 MG/GM 00:00: 00 Estradiol Estradiol 2018-06 No Estradiol 0.1 MG/GM 0.1 MG/GM 0-21 0.1 MG/GM 00:00: 00 Estradiol Estradiol 2018-06 No Estradiol 0.1 MG/GM 0.1 MG/GM 0-21 0.1 MG/GM 00:00: 00 Estradiol Estradiol 2018-06 No Estradiol 0.1 MG/GM 0.1 MG/GM 0-21 0.1 MG/GM 00:00: 00 Vagifem 10 Vagifem 10 2019- No 1{table Vagifem 10 MCG MCG 4-15 t} MCG 00:00: 00 Vagifem 10 Vagifem 10 2019 No 1{table Vagifem 10 MCG MCG 4-15 t} MCG 00:00: 00 Vagifem 10 Vagifem 10 2019 No 1{table Vagifem 10 MCG MCG 4-15 t} MCG 00:00: 00 Vagifem 10 Vagifem 10 2019 No 1{table Vagifem 10 MCG MCG 4-15 t} MCG 00:00: 00 Vagifem 10 Vagifem 10 2019 No 1{table Vagifem 10 MCG MCG 4-15 t} MCG 00:00: 00 Vagifem 10 Vagifem 10 2019 No 1{table Vagifem 10 MCG MCG 4-15 t} MCG 00:00: 00 Vagifem 10 Vagifem 10 No 1{table Vagifem 10 MCG MCG 4-15 t} MCG 00:00: 00 Vagifem 10 Vagifem 10 No 1{table Vagifem 10 MCG MCG 4-15 t} MCG 00:00: 00 Vagifem 10 Vagifem 10 No 1{table Vagifem 10 MCG MCG 4-15 t} MCG 00:00: 00 Vagifem 10 Vagifem 10 No 1{table Vagifem 10 MCG MCG 4-15 t} MCG 00:00: 00 Vagifem 10 Vagifem 10 2019 No 1{table Vagifem 10 MCG MCG 4-15 t} MCG 00:00: 00 Vagifem 10 Vagifem 10 2019 No 1{table Vagifem 10 MCG MCG 4-15 t} MCG 00:00: 00 Vagifem 10 Vagifem 10 2019 No 1{table Vagifem 10 MCG MCG 4-15 t} MCG 00:00: 00 Vagifem 10 Vagifem 10 2019 No 1{table Vagifem 10 MCG MCG 4-15 t} MCG 00:00: 00 Vagifem 10 Vagifem 10 No 1{table Vagifem 10 MCG MCG 4-15 t} MCG 00:00: 00 Vagifem 10 Vagifem 10 No 1{table Vagifem 10 MCG MCG 4-15 t} MCG 00:00: 00 Vagifem 10 Vagifem 10 No 1{table Vagifem 10 MCG MCG 4-15 t} MCG 00:00: 00 Vagifem 10 Vagifem 10 No 1{table Vagifem 10 MCG MCG 4-15 t} MCG 00:00: 00 Vagifem 10 Vagifem 10 No 1{table Vagifem 10 MCG MCG 4-15 t} MCG 00:00: 00 Vagifem 10 Vagifem 10 No 1{table Vagifem 10 MCG MCG 4-15 t} MCG 00:00: 00 Vagifem 10 Vagifem 10 No 1{table Vagifem 10 MCG MCG 4-15 t} MCG 00:00: 00 Vagifem 10 Vagifem 10 No 1{table Vagifem 10 MCG MCG 4-15 t} MCG 00:00: 00 Vagifem 10 Vagifem 10 No 1{table Vagifem 10 MCG MCG 4-15 t} MCG 00:00: 00 Alendronate Alendronate No 1{table Alendronat Sodium 35 Sodium 35 t} e Sodium MG MG 35 MG Cymbalta 30 Cymbalta 30 No 1{capsu QD Cymbalta MG MG le} 30 MG Caltrate Caltrate No 1{table QD Caltrate 600+D 600+D t_after 600+D 600-400 600-400 _a_meal 600-400 MG-UNIT MG-UNIT } MG-UNIT Pravastatin Pravastatin No 1{table QD Pravastati Sodium 40 Sodium 40 t} n Sodium MG MG 40 MG Trimethopri Trimethopri No 1{table QD Trimethopr m 100 MG m 100 MG t} im 100 MG Estrace 0.1 Estrace 0.1 No Estrace MG/GM MG/GM 0.1 MG/GM Ramipril 5 Ramipril 5 No 1{capsu QD Ramipril 5 MG MG le} MG amLODIPine amLODIPine No 1{table QD amLODIPine Besylate 5 Besylate 5 t} Besylate 5 MG MG MG Trimethopri Trimethopri No 1{table QD Trimethopr m 100 mg m 100 mg t} im 100 mg Cymbalta 30 Cymbalta 30 No 1{capsu QD Cymbalta MG MG le} 30 MG Alendronate Alendronate No 1{table Alendronat Sodium 35 Sodium 35 t} e Sodium MG MG 35 MG amLODIPine amLODIPine No 1{table QD amLODIPine Besylate 5 Besylate 5 t} Besylate 5 MG MG MG Caltrate Caltrate No 1{table QD Caltrate 600+D 600+D t_after 600+D 600-400 600-400 _a_meal 600-400 MG-UNIT MG-UNIT } MG-UNIT Aspirin 81 Aspirin 81 No 1{table QD Aspirin 81 MG MG t} MG Trimethopri Trimethopri No 1{table QD Trimethopr m 100 MG m 100 MG t} im 100 MG Pravastatin Pravastatin No 1{table QD Pravastati Sodium 40 Sodium 40 t} n Sodium MG MG 40 MG Arthritis Arthritis No Arthritis Pain Relief Pain Relief Pain Relief Trimethopri Trimethopri No 1{table QD Trimethopr m 100 mg m 100 mg t} im 100 mg Ibuprofen Ibuprofen No Ibuprofen Ramipril 5 Ramipril 5 No 1{capsu QD Ramipril 5 MG MG le} MG Estrace 0.1 Estrace 0.1 No Estrace MG/GM MG/GM 0.1 MG/GM Probiotic - Probiotic - No Probiotic - Caltrate Caltrate No 1{table QD Caltrate 600+D 600+D t_after 600+D 600-400 600-400 _a_meal 600-400 MG-UNIT MG-UNIT } MG-UNIT Ramipril 5 Ramipril 5 No 1{capsu QD Ramipril 5 MG MG le} MG Arthritis Arthritis No Arthritis Pain Relief Pain Relief Pain Relief Cymbalta 30 Cymbalta 30 No 1{capsu QD Cymbalta MG MG le} 30 MG Estrace 0.1 Estrace 0.1 No Estrace MG/GM MG/GM 0.1 MG/GM Probiotic - Probiotic - No Probiotic - Trimethopri Trimethopri No 1{table QD Trimethopr m 100 mg m 100 mg t} im 100 mg Aspirin 81 Aspirin 81 No 1{table QD Aspirin 81 MG MG t} MG Trimethopri Trimethopri No 1{table QD Trimethopr m 100 MG m 100 MG t} im 100 MG amLODIPine amLODIPine No 1{table QD amLODIPine Besylate 5 Besylate 5 t} Besylate 5 MG MG MG Ibuprofen Ibuprofen No Ibuprofen Pravastatin Pravastatin No 1{table QD Pravastati Sodium 40 Sodium 40 t} n Sodium MG MG 40 MG Alendronate Alendronate No 1{table Alendronat Sodium 35 Sodium 35 t} e Sodium MG MG 35 MG Caltrate Caltrate No 1{table QD Caltrate 600+D 600+D t_after 600+D 600-400 600-400 _a_meal 600-400 MG-UNIT MG-UNIT } MG-UNIT Ramipril 5 Ramipril 5 No 1{capsu QD Ramipril 5 MG MG le} MG Arthritis Arthritis No Arthritis Pain Relief Pain Relief Pain Relief Cymbalta 30 Cymbalta 30 No 1{capsu QD Cymbalta MG MG le} 30 MG Estrace 0.1 Estrace 0.1 No Estrace MG/GM MG/GM 0.1 MG/GM Probiotic - Probiotic - No Probiotic - Trimethopri Trimethopri No 1{table QD Trimethopr m 100 mg m 100 mg t} im 100 mg Aspirin 81 Aspirin 81 No 1{table QD Aspirin 81 MG MG t} MG Trimethopri Trimethopri No 1{table QD Trimethopr m 100 MG m 100 MG t} im 100 MG amLODIPine amLODIPine No 1{table QD amLODIPine Besylate 5 Besylate 5 t} Besylate 5 MG MG MG Ibuprofen Ibuprofen No Ibuprofen Pravastatin Pravastatin No 1{table QD Pravastati Sodium 40 Sodium 40 t} n Sodium MG MG 40 MG Alendronate Alendronate No 1{table Alendronat Sodium 35 Sodium 35 t} e Sodium MG MG 35 MG Ibuprofen Ibuprofen No Ibuprofen Caltrate Caltrate No 1{table QD Caltrate 600+D 600+D t_after 600+D 600-400 600-400 _a_meal 600-400 MG-UNIT MG-UNIT } MG-UNIT Estrace 0.1 Estrace 0.1 No Estrace MG/GM MG/GM 0.1 MG/GM Alendronate Alendronate No 1{table Alendronat Sodium 35 Sodium 35 t} e Sodium MG MG 35 MG Trimethopri Trimethopri No 1{table QD Trimethopr m 100 MG m 100 MG t} im 100 MG Arthritis Arthritis No Arthritis Pain Relief Pain Relief Pain Relief Probiotic - Probiotic - No Probiotic - amLODIPine amLODIPine No 1{table QD amLODIPine Besylate 5 Besylate 5 t} Besylate 5 MG MG MG Ramipril 5 Ramipril 5 No 1{capsu QD Ramipril 5 MG MG le} MG Aspirin 81 Aspirin 81 No 1{table QD Aspirin 81 MG MG t} MG Trimethopri Trimethopri No 1{table QD Trimethopr m 100 mg m 100 mg t} im 100 mg Cymbalta 30 Cymbalta 30 No 1{capsu QD Cymbalta MG MG le} 30 MG Pravastatin Pravastatin No 1{table QD Pravastati Sodium 40 Sodium 40 t} n Sodium MG MG 40 MG Estrace 0.1 Estrace 0.1 No Estrace MG/GM MG/GM 0.1 MG/GM Trimethopri Trimethopri No 1{table QD Trimethopr m 100 mg m 100 mg t} im 100 mg Trimethopri Trimethopri No 1{table QD Trimethopr m 100 MG m 100 MG t} im 100 MG Pravastatin Pravastatin No 1{table QD Pravastati Sodium 40 Sodium 40 t} n Sodium MG MG 40 MG Aspirin 81 Aspirin 81 No 1{table QD Aspirin 81 MG MG t} MG amLODIPine amLODIPine No 1{table QD amLODIPine Besylate 5 Besylate 5 t} Besylate 5 MG MG MG Ibuprofen Ibuprofen No Ibuprofen Caltrate Caltrate No 1{table QD Caltrate 600+D 600+D t_after 600+D 600-400 600-400 _a_meal 600-400 MG-UNIT MG-UNIT } MG-UNIT Ramipril 5 Ramipril 5 No 1{capsu QD Ramipril 5 MG MG le} MG Alendronate Alendronate No 1{table Alendronat Sodium 35 Sodium 35 t} e Sodium MG MG 35 MG Arthritis Arthritis No Arthritis Pain Relief Pain Relief Pain Relief Cymbalta 30 Cymbalta 30 No 1{capsu QD Cymbalta MG MG le} 30 MG Probiotic - Probiotic - No Probiotic - Trimethopri Trimethopri No 1{table QD Trimethopr m 100 mg m 100 mg t} im 100 mg Cymbalta 30 Cymbalta 30 No 1{capsu QD Cymbalta MG MG le} 30 MG Caltrate Caltrate No 1{table QD Caltrate 600+D 600+D t_after 600+D 600-400 600-400 _a_meal 600-400 MG-UNIT MG-UNIT } MG-UNIT Estrace 0.1 Estrace 0.1 No Estrace MG/GM MG/GM 0.1 MG/GM Alendronate Alendronate No 1{table Alendronat Sodium 35 Sodium 35 t} e Sodium MG MG 35 MG Probiotic - Probiotic - No Probiotic - Arthritis Arthritis No Arthritis Pain Relief Pain Relief Pain Relief Pravastatin Pravastatin No 1{table QD Pravastati Sodium 40 Sodium 40 t} n Sodium MG MG 40 MG amLODIPine amLODIPine No 1{table QD amLODIPine Besylate 5 Besylate 5 t} Besylate 5 MG MG MG Ibuprofen Ibuprofen No Ibuprofen Ramipril 5 Ramipril 5 No 1{capsu QD Ramipril 5 MG MG le} MG Trimethopri Trimethopri No 1{table QD Trimethopr m 100 MG m 100 MG t} im 100 MG Aspirin 81 Aspirin 81 No 1{table QD Aspirin 81 MG MG t} MG Trimethopri Trimethopri No 1{table QD Trimethopr m 100 mg m 100 mg t} im 100 mg Cymbalta 30 Cymbalta 30 No 1{capsu QD Cymbalta MG MG le} 30 MG Caltrate Caltrate No 1{table QD Caltrate 600+D 600+D t_after 600+D 600-400 600-400 _a_meal 600-400 MG-UNIT MG-UNIT } MG-UNIT Estrace 0.1 Estrace 0.1 No Estrace MG/GM MG/GM 0.1 MG/GM Alendronate Alendronate No 1{table Alendronat Sodium 35 Sodium 35 t} e Sodium MG MG 35 MG Probiotic - Probiotic - No Probiotic - Arthritis Arthritis No Arthritis Pain Relief Pain Relief Pain Relief Pravastatin Pravastatin No 1{table QD Pravastati Sodium 40 Sodium 40 t} n Sodium MG MG 40 MG amLODIPine amLODIPine No 1{table QD amLODIPine Besylate 5 Besylate 5 t} Besylate 5 MG MG MG Ibuprofen Ibuprofen No Ibuprofen Ramipril 5 Ramipril 5 No 1{capsu QD Ramipril 5 MG MG le} MG Trimethopri Trimethopri No 1{table QD Trimethopr m 100 MG m 100 MG t} im 100 MG Aspirin 81 Aspirin 81 No 1{table QD Aspirin 81 MG MG t} MG Trimethopri Trimethopri No 1{table QD Trimethopr m 100 mg m 100 mg t} im 100 mg Aspirin 81 Aspirin 81 No 1{table QD Aspirin 81 MG MG t} MG Ibuprofen Ibuprofen No Ibuprofen Alendronate Alendronate No 1{table Alendronat Sodium 35 Sodium 35 t} e Sodium MG MG 35 MG Probiotic - Probiotic - No Probiotic - Estrace 0.1 Estrace 0.1 No Estrace MG/GM MG/GM 0.1 MG/GM Ramipril 5 Ramipril 5 No 1{capsu QD Ramipril 5 MG MG le} MG Arthritis Arthritis No Arthritis Pain Relief Pain Relief Pain Relief Cymbalta 30 Cymbalta 30 No 1{capsu QD Cymbalta MG MG le} 30 MG Caltrate Caltrate No 1{table QD Caltrate 600+D 600+D t_after 600+D 600-400 600-400 _a_meal 600-400 MG-UNIT MG-UNIT } MG-UNIT Trimethopri Trimethopri No 1{table QD Trimethopr m 100 MG m 100 MG t} im 100 MG Pravastatin Pravastatin No 1{table QD Pravastati Sodium 40 Sodium 40 t} n Sodium MG MG 40 MG amLODIPine amLODIPine No 1{table QD amLODIPine Besylate 5 Besylate 5 t} Besylate 5 MG MG MG Trimethopri Trimethopri No 1{table QD Trimethopr m 100 mg m 100 mg t} im 100 mg Aspirin 81 Aspirin 81 No 1{table QD Aspirin 81 MG MG t} MG Ibuprofen Ibuprofen No Ibuprofen Alendronate Alendronate No 1{table Alendronat Sodium 35 Sodium 35 t} e Sodium MG MG 35 MG Probiotic - Probiotic - No Probiotic - Estrace 0.1 Estrace 0.1 No Estrace MG/GM MG/GM 0.1 MG/GM Ramipril 5 Ramipril 5 No 1{capsu QD Ramipril 5 MG MG le} MG Arthritis Arthritis No Arthritis Pain Relief Pain Relief Pain Relief Cymbalta 30 Cymbalta 30 No 1{capsu QD Cymbalta MG MG le} 30 MG Caltrate Caltrate No 1{table QD Caltrate 600+D 600+D t_after 600+D 600-400 600-400 _a_meal 600-400 MG-UNIT MG-UNIT } MG-UNIT Trimethopri Trimethopri No 1{table QD Trimethopr m 100 MG m 100 MG t} im 100 MG Pravastatin Pravastatin No 1{table QD Pravastati Sodium 40 Sodium 40 t} n Sodium MG MG 40 MG amLODIPine amLODIPine No 1{table QD amLODIPine Besylate 5 Besylate 5 t} Besylate 5 MG MG MG Trimethopri Trimethopri No 1{table QD Trimethopr m 100 mg m 100 mg t} im 100 mg amLODIPine amLODIPine No 1{table QD amLODIPine Besylate 5 Besylate 5 t} Besylate 5 MG MG MG Alendronate Alendronate No 1{table Alendronat Sodium 35 Sodium 35 t} e Sodium MG MG 35 MG Caltrate Caltrate No 1{table QD Caltrate 600+D 600+D t_after 600+D 600-400 600-400 _a_meal 600-400 MG-UNIT MG-UNIT } MG-UNIT Estrace 0.1 Estrace 0.1 No Estrace MG/GM MG/GM 0.1 MG/GM Trimethopri Trimethopri No 1{table QD Trimethopr m 100 MG m 100 MG t} im 100 MG Pravastatin Pravastatin No 1{table QD Pravastati Sodium 40 Sodium 40 t} n Sodium MG MG 40 MG Aspirin 81 Aspirin 81 No 1{table QD Aspirin 81 MG MG t} MG Cymbalta 30 Cymbalta 30 No 1{capsu QD Cymbalta MG MG le} 30 MG Ramipril 5 Ramipril 5 No 1{capsu QD Ramipril 5 MG MG le} MG Ibuprofen Ibuprofen No Ibuprofen Probiotic - Probiotic - No Probiotic - Arthritis Arthritis No Arthritis Pain Relief Pain Relief Pain Relief Estrace 0.1 Estrace 0.1 No Estrace MG/GM MG/GM 0.1 MG/GM Trimethopri Trimethopri No 1{table QD Trimethopr m 100 mg m 100 mg t} im 100 mg Trimethopri Trimethopri No 1{table QD Trimethopr m 100 mg m 100 mg t} im 100 mg amLODIPine amLODIPine No 1{table QD amLODIPine Besylate 5 Besylate 5 t} Besylate 5 MG MG MG Alendronate Alendronate No 1{table Alendronat Sodium 35 Sodium 35 t} e Sodium MG MG 35 MG Caltrate Caltrate No 1{table QD Caltrate 600+D 600+D t_after 600+D 600-400 600-400 _a_meal 600-400 MG-UNIT MG-UNIT } MG-UNIT Estrace 0.1 Estrace 0.1 No Estrace MG/GM MG/GM 0.1 MG/GM Trimethopri Trimethopri No 1{table QD Trimethopr m 100 MG m 100 MG t} im 100 MG Trimethopri Trimethopri No 1{table QD Trimethopr m 100 MG m 100 MG t} im 100 MG Pravastatin Pravastatin No 1{table QD Pravastati Sodium 40 Sodium 40 t} n Sodium MG MG 40 MG Aspirin 81 Aspirin 81 No 1{table QD Aspirin 81 MG MG t} MG Cymbalta 30 Cymbalta 30 No 1{capsu QD Cymbalta MG MG le} 30 MG Ramipril 5 Ramipril 5 No 1{capsu QD Ramipril 5 MG MG le} MG Ibuprofen Ibuprofen No Ibuprofen Probiotic - Probiotic - No Probiotic - Arthritis Arthritis No Arthritis Pain Relief Pain Relief Pain Relief Pravastatin Pravastatin No 1{table QD Pravastati Sodium 40 Sodium 40 t} n Sodium MG MG 40 MG Cymbalta 30 Cymbalta 30 No 1{capsu QD Cymbalta MG MG le} 30 MG Ibuprofen Ibuprofen No Ibuprofen Estrace 0.1 Estrace 0.1 No Estrace MG/GM MG/GM 0.1 MG/GM Arthritis Arthritis No Arthritis Pain Relief Pain Relief Pain Relief amLODIPine amLODIPine No 1{table QD amLODIPine Besylate 5 Besylate 5 t} Besylate 5 MG MG MG Caltrate Caltrate No 1{table QD Caltrate 600+D 600+D t_after 600+D 600-400 600-400 _a_meal 600-400 MG-UNIT MG-UNIT } MG-UNIT Ramipril 5 Ramipril 5 No 1{capsu QD Ramipril 5 MG MG le} MG Aspirin 81 Aspirin 81 No 1{table QD Aspirin 81 MG MG t} MG Pravastatin Pravastatin No 1{table QD Pravastati Sodium 40 Sodium 40 t} n Sodium MG MG 40 MG Probiotic - Probiotic - No Probiotic - Trimethopri Trimethopri No 1{table QD Trimethopr m 100 mg m 100 mg t} im 100 mg Alendronate Alendronate No 1{table Alendronat Sodium 35 Sodium 35 t} e Sodium MG MG 35 MG Trimethopri Trimethopri No 1{table QD Trimethopr m 100 MG m 100 MG t} im 100 MG Aspirin 81 Aspirin 81 No 1{table QD Aspirin 81 MG MG t} MG amLODIPine amLODIPine No 1{table QD amLODIPine Besylate 5 Besylate 5 t} Besylate 5 MG MG MG Cymbalta 30 Cymbalta 30 No 1{capsu QD Cymbalta MG MG le} 30 MG Ibuprofen Ibuprofen No Ibuprofen Estrace 0.1 Estrace 0.1 No Estrace MG/GM MG/GM 0.1 MG/GM Arthritis Arthritis No Arthritis Pain Relief Pain Relief Pain Relief amLODIPine amLODIPine No 1{table QD amLODIPine Besylate 5 Besylate 5 t} Besylate 5 MG MG MG Caltrate Caltrate No 1{table QD Caltrate 600+D 600+D t_after 600+D 600-400 600-400 _a_meal 600-400 MG-UNIT MG-UNIT } MG-UNIT Ramipril 5 Ramipril 5 No 1{capsu QD Ramipril 5 MG MG le} MG Ibuprofen Ibuprofen No Ibuprofen Aspirin 81 Aspirin 81 No 1{table QD Aspirin 81 MG MG t} MG Pravastatin Pravastatin No 1{table QD Pravastati Sodium 40 Sodium 40 t} n Sodium MG MG 40 MG Probiotic - Probiotic - No Probiotic - Trimethopri Trimethopri No 1{table QD Trimethopr m 100 mg m 100 mg t} im 100 mg Alendronate Alendronate No 1{table Alendronat Sodium 35 Sodium 35 t} e Sodium MG MG 35 MG Trimethopri Trimethopri No 1{table QD Trimethopr m 100 MG m 100 MG t} im 100 MG Caltrate Caltrate No 1{table QD Caltrate 600+D 600+D t_after 600+D 600-400 600-400 _a_meal 600-400 MG-UNIT MG-UNIT } MG-UNIT Ramipril 5 Ramipril 5 No 1{capsu QD Ramipril 5 MG MG le} MG Trimethopri Trimethopri No 1{table QD Trimethopr m 100 MG m 100 MG t} im 100 MG Pravastatin Pravastatin No 1{table QD Pravastati Sodium 40 Sodium 40 t} n Sodium MG MG 40 MG Caltrate Caltrate No 1{table QD Caltrate 600+D 600+D t_after 600+D 600-400 600-400 _a_meal 600-400 MG-UNIT MG-UNIT } MG-UNIT Alendronate Alendronate No 1{table Alendronat Sodium 35 Sodium 35 t} e Sodium MG MG 35 MG Aspirin 81 Aspirin 81 No 1{table QD Aspirin 81 MG MG t} MG Cymbalta 30 Cymbalta 30 No 1{capsu QD Cymbalta MG MG le} 30 MG Ibuprofen Ibuprofen No Ibuprofen Alendronate Alendronate No 1{table Alendronat Sodium 35 Sodium 35 t} e Sodium MG MG 35 MG Probiotic - Probiotic - No Probiotic - Ramipril 5 Ramipril 5 No 1{capsu QD Ramipril 5 MG MG le} MG Arthritis Arthritis No Arthritis Pain Relief Pain Relief Pain Relief amLODIPine amLODIPine No 1{table QD amLODIPine Besylate 5 Besylate 5 t} Besylate 5 MG MG MG Estrace 0.1 Estrace 0.1 No Estrace MG/GM MG/GM 0.1 MG/GM Trimethopri Trimethopri No 1{table QD Trimethopr m 100 mg m 100 mg t} im 100 mg Arthritis Arthritis No Arthritis Pain Relief Pain Relief Pain Relief Cymbalta 30 Cymbalta 30 No 1{capsu QD Cymbalta MG MG le} 30 MG Cymbalta 30 Cymbalta 30 No 1{capsu QD Cymbalta MG MG le} 30 MG amLODIPine amLODIPine No 1{table QD amLODIPine Besylate 5 Besylate 5 t} Besylate 5 MG MG MG Caltrate Caltrate No 1{table QD Caltrate 600+D 600+D t_after 600+D 600-400 600-400 _a_meal 600-400 MG-UNIT MG-UNIT } MG-UNIT Probiotic - Probiotic - No Probiotic - Probiotic - Probiotic - No Probiotic - Estrace 0.1 Estrace 0.1 No Estrace MG/GM MG/GM 0.1 MG/GM Gabapentin Gabapentin No Gabapentin Trimethopri Trimethopri No 1{table QD Trimethopr m 100 MG m 100 MG t} im 100 MG Pravastatin Pravastatin No 1{table QD Pravastati Sodium 40 Sodium 40 t} n Sodium MG MG 40 MG Trimethopri Trimethopri No 1{table QD Trimethopr m 100 mg m 100 mg t} im 100 mg Ibuprofen Ibuprofen No Ibuprofen Ramipril 5 Ramipril 5 No 1{capsu QD Ramipril 5 MG MG le} MG Alendronate Alendronate No 1{table Alendronat Sodium 35 Sodium 35 t} e Sodium MG MG 35 MG Arthritis Arthritis No Arthritis Pain Relief Pain Relief Pain Relief Aspirin 81 Aspirin 81 No 1{table QD Aspirin 81 MG MG t} MG Cymbalta 30 Cymbalta 30 No 1{capsu QD Cymbalta MG MG le} 30 MG amLODIPine amLODIPine No 1{table QD amLODIPine Besylate 5 Besylate 5 t} Besylate 5 MG MG MG Caltrate Caltrate No 1{table QD Caltrate 600+D 600+D t_after 600+D 600-400 600-400 _a_meal 600-400 MG-UNIT MG-UNIT } MG-UNIT Probiotic - Probiotic - No Probiotic - Estrace 0.1 Estrace 0.1 No Estrace MG/GM MG/GM 0.1 MG/GM Gabapentin Gabapentin No Gabapentin Trimethopri Trimethopri No 1{table QD Trimethopr m 100 MG m 100 MG t} im 100 MG Pravastatin Pravastatin No 1{table QD Pravastati Sodium 40 Sodium 40 t} n Sodium MG MG 40 MG Trimethopri Trimethopri No 1{table QD Trimethopr m 100 mg m 100 mg t} im 100 mg Ibuprofen Ibuprofen No Ibuprofen Ramipril 5 Ramipril 5 No 1{capsu QD Ramipril 5 MG MG le} MG Alendronate Alendronate No 1{table Alendronat Sodium 35 Sodium 35 t} e Sodium MG MG 35 MG Arthritis Arthritis No Arthritis Pain Relief Pain Relief Pain Relief Aspirin 81 Aspirin 81 No 1{table QD Aspirin 81 MG MG t} MG Aspirin 81 Aspirin 81 No 1{table QD Aspirin 81 MG MG t} MG Caltrate Caltrate No 1{table QD Caltrate 600+D 600+D t_after 600+D 600-400 600-400 _a_meal 600-400 MG-UNIT MG-UNIT } MG-UNIT amLODIPine amLODIPine No 1{table QD amLODIPine Besylate 5 Besylate 5 t} Besylate 5 MG MG MG Ibuprofen Ibuprofen No Ibuprofen Arthritis Arthritis No Arthritis Pain Relief Pain Relief Pain Relief Estrace 0.1 Estrace 0.1 No Estrace MG/GM MG/GM 0.1 MG/GM Alendronate Alendronate No 1{table Alendronat Sodium 35 Sodium 35 t} e Sodium MG MG 35 MG Cymbalta 30 Cymbalta 30 No 1{capsu QD Cymbalta MG MG le} 30 MG Ramipril 5 Ramipril 5 No 1{capsu QD Ramipril 5 MG MG le} MG Trimethopri Trimethopri No 1{table QD Trimethopr m 100 MG m 100 MG t} im 100 MG Probiotic - Probiotic - No Probiotic - Ramipril 5 Ramipril 5 No 1{capsu QD Ramipril 5 MG MG le} MG Gabapentin Gabapentin No Gabapentin Pravastatin Pravastatin No 1{table QD Pravastati Sodium 40 Sodium 40 t} n Sodium MG MG 40 MG Trimethopri Trimethopri No 1{table QD Trimethopr m 100 mg m 100 mg t} im 100 mg Alendronate Alendronate No 1{table Alendronat Sodium 35 Sodium 35 t} e Sodium MG MG 35 MG Pravastatin Pravastatin No 1{table QD Pravastati Sodium 40 Sodium 40 t} n Sodium MG MG 40 MG Aspirin 81 Aspirin 81 No 1{table QD Aspirin 81 MG MG t} MG Caltrate Caltrate No 1{table QD Caltrate 600+D 600+D t_after 600+D 600-400 600-400 _a_meal 600-400 MG-UNIT MG-UNIT } MG-UNIT amLODIPine amLODIPine No 1{table QD amLODIPine Besylate 5 Besylate 5 t} Besylate 5 MG MG MG Ibuprofen Ibuprofen No Ibuprofen Arthritis Arthritis No Arthritis Pain Relief Pain Relief Pain Relief Estrace 0.1 Estrace 0.1 No Estrace MG/GM MG/GM 0.1 MG/GM Alendronate Alendronate No 1{table Alendronat Sodium 35 Sodium 35 t} e Sodium MG MG 35 MG Cymbalta 30 Cymbalta 30 No 1{capsu QD Cymbalta MG MG le} 30 MG Cymbalta 30 Cymbalta 30 No 1{capsu QD Cymbalta MG MG le} 30 MG Ramipril 5 Ramipril 5 No 1{capsu QD Ramipril 5 MG MG le} MG Trimethopri Trimethopri No 1{table QD Trimethopr m 100 MG m 100 MG t} im 100 MG Probiotic - Probiotic - No Probiotic - Gabapentin Gabapentin No Gabapentin Pravastatin Pravastatin No 1{table QD Pravastati Sodium 40 Sodium 40 t} n Sodium MG MG 40 MG Trimethopri Trimethopri No 1{table QD Trimethopr m 100 mg m 100 mg t} im 100 mg Trimethopri Trimethopri No 1{table QD Trimethopr m 100 MG m 100 MG t} im 100 MG Trimethopri Trimethopri No 1{table QD Trimethopr m 100 mg m 100 mg t} im 100 mg Aspirin 81 Aspirin 81 No 1{table QD Aspirin 81 MG MG t} MG Caltrate Caltrate No 1{table QD Caltrate 600+D 600+D t_after 600+D 600-400 600-400 _a_meal 600-400 MG-UNIT MG-UNIT } MG-UNIT amLODIPine amLODIPine No 1{table QD amLODIPine Besylate 5 Besylate 5 t} Besylate 5 MG MG MG Ibuprofen Ibuprofen No Ibuprofen Arthritis Arthritis No Arthritis Pain Relief Pain Relief Pain Relief Estrace 0.1 Estrace 0.1 No Estrace MG/GM MG/GM 0.1 MG/GM Alendronate Alendronate No 1{table Alendronat Sodium 35 Sodium 35 t} e Sodium MG MG 35 MG Caltrate Caltrate No 1{table QD Caltrate 600+D 600+D t_after 600+D 600-400 600-400 _a_meal 600-400 MG-UNIT MG-UNIT } MG-UNIT Cymbalta 30 Cymbalta 30 No 1{capsu QD Cymbalta MG MG le} 30 MG Ramipril 5 Ramipril 5 No 1{capsu QD Ramipril 5 MG MG le} MG Trimethopri Trimethopri No 1{table QD Trimethopr m 100 MG m 100 MG t} im 100 MG Probiotic - Probiotic - No Probiotic - Gabapentin Gabapentin No Gabapentin Pravastatin Pravastatin No 1{table QD Pravastati Sodium 40 Sodium 40 t} n Sodium MG MG 40 MG Trimethopri Trimethopri No 1{table QD Trimethopr m 100 mg m 100 mg t} im 100 mg Aspirin 81 Aspirin 81 No 1{table QD Aspirin 81 MG MG t} MG Estrace 0.1 Estrace 0.1 No Estrace MG/GM MG/GM 0.1 MG/GM amLODIPine amLODIPine No 1{table QD amLODIPine Besylate 5 Besylate 5 t} Besylate 5 MG MG MG Probiotic - Probiotic - No Probiotic - Ramipril 5 Ramipril 5 No 1{capsu QD Ramipril 5 MG MG le} MG Alendronate Alendronate No 1{table Alendronat Sodium 35 Sodium 35 t} e Sodium MG MG 35 MG Pravastatin Pravastatin No 1{table QD Pravastati Sodium 40 Sodium 40 t} n Sodium MG MG 40 MG Cymbalta 30 Cymbalta 30 No 1{capsu QD Cymbalta MG MG le} 30 MG Trimethopri Trimethopri No 1{table QD Trimethopr m 100 MG m 100 MG t} im 100 MG Trimethopri Trimethopri No 1{table QD Trimethopr m 100 mg m 100 mg t} im 100 mg Caltrate Caltrate No 1{table QD Caltrate 600+D 600+D t_after 600+D 600-400 600-400 _a_meal 600-400 MG-UNIT MG-UNIT } MG-UNIT Aspirin 81 Aspirin 81 No 1{table QD Aspirin 81 MG MG t} MG Estrace 0.1 Estrace 0.1 No Estrace MG/GM MG/GM 0.1 MG/GM amLODIPine amLODIPine No 1{table QD amLODIPine Besylate 5 Besylate 5 t} Besylate 5 MG MG MG Probiotic - Probiotic - No Probiotic - Probiotic - Probiotic - No Probiotic - Aspirin 81 Aspirin 81 No 1{table QD Aspirin 81 MG MG t} MG Immunizations Ordered Filled Immunization Date Status Comments [facility] e Immunization Name Name Influenza Virus 2022-03-29 Completed Nikole Se ybold Vaccine, 00:00:00 - External Quadrivalent, High Dose, Age 65 And Up Influenza Virus 2022-03-29 Completed Nikole Se ybold Vaccine, 00:00:00 - External Quadrivalent, High Dose, Age 65 And Up Influenza Virus 2022-03-29 Completed Nikole Se ybold Vaccine, 00:00:00 - External Quadrivalent, High Dose, Age 65 And Up Influenza Virus 2022-03-29 Completed Nikole Se ybold Vaccine, 00:00:00 - External Quadrivalent, High Dose, Age 65 And Up Influenza Virus 2022-03-29 Completed Nikole Se ybold Vaccine, 00:00:00 - External Quadrivalent, High Dose, Age 65 And Up Influenza Virus 2022-03-29 Completed Nikole Se ybold Vaccine, 00:00:00 - External Quadrivalent, High Dose, Age 65 And Up Influenza Virus 2022-03-29 Completed Nikole Se ybold Vaccine, 00:00:00 - External Quadrivalent, High Dose, Age 65 And Up Influenza Virus 2022-03-29 Completed Nikole Se ybold Vaccine, 00:00:00 - External Quadrivalent, High Dose, Age 65 And Up Influenza Virus 2022-03-29 Completed Nikole Se ybold Vaccine, 00:00:00 - External Quadrivalent, High Dose, Age 65 And Up Influenza Virus 2021-04-03 Completed Nikole Se ybold Vaccine, 00:00:00 - External Quadrivalent, High Dose, Age 65 And Up Influenza Virus 2021-04-03 Completed Nikole Se ybold Vaccine, 00:00:00 - External Quadrivalent, High Dose, Age 65 And Up Influenza Virus 2021-04-03 Completed Nikole Se ybold Vaccine, 00:00:00 - External Quadrivalent, High Dose, Age 65 And Up Influenza Virus 2021-04-03 Completed Nikole Se ybold Vaccine, 00:00:00 - External Quadrivalent, High Dose, Age 65 And Up Influenza Virus 2021-04-03 Completed Nikole Se ybold Vaccine, 00:00:00 - External Quadrivalent, High Dose, Age 65 And Up Influenza Virus 2021-04-03 Completed Nikole Se ybold Vaccine, 00:00:00 - External Quadrivalent, High Dose, Age 65 And Up Influenza Virus 2021-04-03 Completed Nikole Se ybold Vaccine, 00:00:00 - External Quadrivalent, High Dose, Age 65 And Up Influenza Virus 2021-04-03 Completed Nikole Se ybold Vaccine, 00:00:00 - External Quadrivalent, High Dose, Age 65 And Up Influenza Virus 2021-04-03 Completed Nikole Se ybold Vaccine, 00:00:00 - External Quadrivalent, High Dose, Age 65 And Up Influenza Virus Unknown Completed Nikole Se ybold Vaccine, - External Quadrivalent, High Dose, Age 65 And Up Influenza Virus Unknown Completed Nikole Se ybold Vaccine, - External Quadrivalent, High Dose, Age 65 And Up Influenza Virus Unknown Completed Nikole Se ybold Vaccine, - External Quadrivalent, High Dose, Age 65 And Up Influenza Virus Unknown Completed Nikole Se ybold Vaccine, - External Quadrivalent, High Dose, Age 65 And Up Vital Signs Vital Name Observation Time Observation Value Comments Source Systolic blood 2023-03-18 13:15:00 144 mm[Hg] Nikole Salomonybold - pressure External Diastolic blood 2023-03-18 13:15:00 74 mm[Hg] Flaquito kulkarni Seybold - pressure External Heart rate 2023-03-18 13:15:00 91 /min Nikole Block eybold - External Body temperature 2023-03-18 13:15:00 37.06 Tamra Bianka ey Seybold - External Respiratory rate 2023-03-18 13:15:00 14 /min Bianka ey Seybold - External Body height 2023-03-18 13:15:00 167.6 cm Nikole S eybold - External Body weight 2023-03-18 13:15:00 54.432 kg Nikole S eybold - External BMI 2023-03-18 13:15:00 19.37 kg/m2 Nikole S eybold - External Body height 2023-02-07 14:40:00 167.6 cm Nikole S eybold - External Systolic blood 2023-01-08 13:54:00 136 mm[Hg] Nikole Seybold - pressure External Diastolic blood 2023-01-08 13:54:00 82 mm[Hg] Tyse y Seybold - pressure External Body temperature 2023-01-08 13:13:00 36.83 Tamra Bianka ey Seybold - External Respiratory rate 2023-01-08 13:13:00 15 /min Bianka ey Seybold - External Body height 2023-01-08 13:13:00 167.6 cm Nikole Block eybold - External Body weight 2023-01-08 13:13:00 58.06 kg Nikole Block eybold - External BMI 2023-01-08 13:13:00 20.66 kg/m2 Nikole Block eybold - External Oxygen saturation in 2023-01-08 13:13:00 99 /min Nikole Raymondold - Arterial blood by External Pulse oximetry Systolic blood 2022-12-18 14:37:00 115 mm[Hg] Nikole Seybold - pressure External Diastolic blood 2022-12-18 14:37:00 58 mm[Hg] Kelse y Seybold - pressure External Heart rate 2022-12-18 14:37:00 68 /min Nikole S eybold - External Body temperature 2022-12-18 14:37:00 36.61 Tamra Bianka ey Seybold - External Respiratory rate 2022-12-18 14:37:00 14 /min Bianka ey Seybold - External Body height 2022-12-18 14:37:00 167.6 cm Nikole S eybold - External Body weight 2022-12-18 14:37:00 58.06 kg Nikole Block eybold - External BMI 2022-12-18 14:37:00 20.66 kg/m2 Nikole Block eybold - External Oxygen saturation in 2022-12-18 14:37:00 99 /min Nikole Seybold - Arterial blood by External Pulse oximetry Systolic blood 2022-11-13 13:14:00 132 mm[Hg] Nikole Seybold - pressure External Diastolic blood 2022-11-13 13:14:00 70 mm[Hg] Tyse y Seybold - pressure External Body height 2022-11-13 13:14:00 167.6 cm Nikole Block eybold - External Body weight 2022-11-13 13:14:00 58.06 kg Nikole Block eybold - External BMI 2022-11-13 13:14:00 20.66 kg/m2 Nikole Block eybold - External Systolic blood 2022-10-30 13:54:00 134 mm[Hg] Nikole Seybold - pressure External Diastolic blood 2022-10-30 13:54:00 73 mm[Hg] Flaquito y Seybold - pressure External Heart rate 2022-10-30 13:54:00 61 /min Nikole Block eybold - External Respiratory rate 2022-10-30 13:54:00 16 /min Bianka ey Seybold - External Body height 2022-10-30 13:54:00 167.6 cm Nikole Block eybold - External Body weight 2022-10-30 13:54:00 58.968 kg Nikole Block eybold - External BMI 2022-10-30 13:54:00 20.98 kg/m2 Nikole Block eybold - External Systolic blood 2022-10-15 14:14:00 104 mm[Hg] Nikole Seybold - pressure External Diastolic blood 2022-10-15 14:14:00 66 mm[Hg] Tyse y Seybold - pressure External Heart rate 2022-10-15 14:14:00 68 /min Nikole Block eybold - External Body temperature 2022-10-15 14:14:00 36.89 Tamra Bianka ey Seybold - External Respiratory rate 2022-10-15 14:14:00 14 /min Bianka ey Seybold - External Body height 2022-10-15 14:14:00 157.5 cm Nikole landaverdebold - External Body weight 2022-10-15 14:14:00 59.421 kg Nikole landaverdebold - External BMI 2022-10-15 14:14:00 23.96 kg/m2 Nikole landaverdebold - External weight 2022-08-28 08:15:00 127 [lb_av] Common [facility] temperature 2022-08-28 08:15:00 97.8 [degF] [facility] bmi 2022-08-28 08:15:00 21.13 kg/m2 [facility] blood pressure 2022-08-28 08:15:00 128 mm[Hg] [facility] - systolic [facility] blood pressure 2022-08-28 08:15:00 77 mm[Hg] [facility] - diastolic [facility] height 2022-08-28 08:15:00 65 [in_i] Common S [facility] - [facility] height 2022-08-21 11:00:00 65 [in_i] [facility] weight 2022-08-21 11:00:00 126 [lb_av] [facility] temperature 2022-08-21 11:00:00 98.2 [degF] [facility] bmi 2022-08-21 11:00:00 20.97 kg/m2 Common S [facility] - [facility] blood pressure 2022-08-21 11:00:00 126 mm[Hg] [facility] - systolic [facility] blood pressure 2022-08-21 11:00:00 82 mm[Hg] [facility] - diastolic [facility] height 2022-07-08 08:30:00 65 [in_i] [facility] weight 2022-07-08 08:30:00 127.2 [lb_av] [facility] temperature 2022-07-08 08:30:00 98.2 [degF] Common [facility] - [facility] bmi 2022-07-08 08:30:00 21.16 kg/m2 Common [facility] - [facility] blood pressure 2022-07-08 08:30:00 120 mm[Hg] [facility] - systolic [facility] blood pressure 2022-07-08 08:30:00 81 mm[Hg] [facility] - diastolic [facility] height 2022-06-17 08:15:00 65 [in_i] Common [facility] - [facility] weight 2022-06-17 08:15:00 130 [lb_av] [facility] temperature 2022-06-17 08:15:00 97.4 [degF] Common S [facility] 2022-06-17 08:15:00 21.63 kg/m2 [facility] blood pressure 2022-06-17 08:15:00 122 mm[Hg] [facility] - systolic [facility] blood pressure 2022-06-17 08:15:00 78 mm[Hg] [facility] - diastolic [facility] height 2022-05-23 15:00:00 65 [in_i] [facility] weight 2022-05-23 15:00:00 130 [lb_av] [facility] temperature 2022-05-23 15:00:00 97.8 [degF] Common [facility] bmi 2022-05-23 15:00:00 21.63 kg/m2 [facility] blood pressure 2022-05-23 15:00:00 120 mm[Hg] [facility] - systolic [facility] blood pressure 2022-05-23 15:00:00 80 mm[Hg] [facility] - diastolic [facility] Systolic blood 2022-05-15 16:04:00 128 mm[Hg] Nikole Raymondold - pressure External Diastolic blood 2022-05-15 16:04:00 69 mm[Hg] Flaquito kulkarni Seybold - pressure External Heart rate 2022-05-15 16:04:00 68 /min Nikole landaverdebomc - External Body temperature 2022-05-15 16:04:00 36.61 Tamra Bianka Ladd - External Respiratory rate 2022-05-15 16:04:00 14 /min Bianka Ladd - External Body height 2022-05-15 16:04:00 157.5 cm Nikole zarate - External Body weight 2022-05-15 16:04:00 60.782 kg Nikole zarate - External BMI 2022-05-15 16:04:00 24.51 kg/m2 Nikole zarate - External Oxygen saturation in 2022-05-15 16:04:00 99 /min Nikole Ladd - Arterial blood by External Pulse oximetry height 2022-04-24 08:00:00 65 [in_i] Common [facility] weight 2022-04-24 08:00:00 130 [lb_av] Common [facility] temperature 2022-04-24 08:00:00 96.7 [degF] Common [facility] bmi 2022-04-24 08:00:00 21.63 kg/m2 Common S [facility] blood pressure 2022-04-24 08:00:00 124 mm[Hg] [facility] - systolic [facility] blood pressure 2022-04-24 08:00:00 75 mm[Hg] [facility] - diastolic [facility] height 2022-03-18 08:45:00 65 [in_i] [facility] weight 2022-03-18 08:45:00 130.5 [lb_av] [facility] - [facility] temperature 2022-03-18 08:45:00 97.3 [degF] Common S [facility] bmi 2022-03-18 08:45:00 21.71 kg/m2 [facility] blood pressure 2022-03-18 08:45:00 128 mm[Hg] [facility] - systolic [facility] blood pressure 2022-03-18 08:45:00 82 mm[Hg] [facility] - diastolic [facility] height 2022-01-16 08:15:00 65 [in_i] Common [facility] - [facility] weight 2022-01-16 08:15:00 140 [lb_av] Common [facility] - [facility] bmi 2022-01-16 08:15:00 23.29 kg/m2 Common [facility] - [facility] blood pressure 2022-01-16 08:15:00 132 mm[Hg] [facility] - systolic [facility] blood pressure 2022-01-16 08:15:00 80 mm[Hg] [facility] - diastolic [facility] height 2021-12-17 08:00:00 65 [in_i] Common [facility] - [facility] weight 2021-12-17 08:00:00 140 [lb_av] Common [facility] - [facility] bmi 2021-12-17 08:00:00 23.29 kg/m2 Common [facility] - [facility] blood pressure 2021-12-17 08:00:00 130 mm[Hg] [facility] - systolic [facility] blood pressure 2021-12-17 08:00:00 80 mm[Hg] [facility] - diastolic [facility] height 2021-11-26 10:45:00 65 [in_i] Common S [facility]irit - [facility] weight 2021-11-26 10:45:00 140 [lb_av] Common [facility] - [facility] bmi 2021-11-26 10:45:00 23.29 kg/m2 Common [facility] - [facility] blood pressure 2021-11-26 10:45:00 130 mm[Hg] [facility] - systolic [facility] blood pressure 2021-11-26 10:45:00 80 mm[Hg] [facility] - diastolic [facility] height 2021-07-09 08:30:00 65 [in_i] Common [facility] - [facility] weight 2021-07-09 08:30:00 140 [lb_av] Common [facility] - [facility] bmi 2021-07-09 08:30:00 23.29 kg/m2 Common S pirit - [facility] blood pressure 2021-07-09 08:30:00 128 mm[Hg] [facility] - systolic [facility] blood pressure 2021-07-09 08:30:00 78 mm[Hg] [facility] - diastolic [facility] height 2021-06-18 13:00:00 65 [in_i] Common [facility] - [facility] weight 2021-06-18 13:00:00 140 [lb_av] Common [facility] - [facility] bmi 2021-06-18 13:00:00 23.29 kg/m2 Common [facility] - [facility] blood pressure 2021-06-18 13:00:00 130 mm[Hg] [facility] - systolic [facility] blood pressure 2021-06-18 13:00:00 70 mm[Hg] [facility] - diastolic [facility] Procedures Procedure Date / Time Performed Performing Clinician Chava BARROS 2022-10-15 15:47:55 Fausto Rubi ld - External Encounters Start End Encounter Admission Attending Care Care Encounter Source Date/Time Date/Time Type Type Clinicians Facility Department ID 2022-12-04 Outpatient ZANDER Catherine STLMLC [id number] 2 Common 16:55:00 Mouin [id number] [facility] 2022-08-13 Outpatient Florin STDAMIENLC STLC [id number] 2 Common 12:43:00 Mouin [id number] [facility] 2022-06-17 Outpatient Florin, STDAMIENLC STLMLC [id number] Common 10:17:01 Mouin [id number] [facility] 2022-05-13 Outpatient Florin, STDAMIENLC STLMLC [id number] Common 11:56:00 Mouin [id number] [facility] 2021-12-14 Outpatient Florin, STDAMIENLC STLMLC [id number] 2 Common 10:59:00 Mouin [facility] 2021-11-23 Outpatient Florin, STDAMIENLC STLMLC [id number] Common 10:23:01 Mouin [facility] 2021-11-06 Outpatient Florin STDAMIENLC STLMLC [id number] 2 Common 16:31:00 Mouin [facility] 2021-07-04 Outpatient Folrin STDAMIENLC STLMLC [id number] Common 14:31:53 Mouin [facility] 2021-07-04 Outpatient Florin STYVETTE STLMLC [id number] Common 11:47:09 Mouin [facility] 2021-07-04 Outpatient STLC STLMLC [id number] Common 11:44:53 [id number] [facility] 2024-01-26 2024-01-26 Outpatient NIKOLE JONES [id number] Nikole 08:40:00 08:40:00 ALEA Seyb old 2023-04-15 2023-04-15 Outpatient NIKOLE THOMPSON [id number] Nikole 09:15:00 09:15:00 BEATRICE Seybol d 2023-04-03 2023-04-03 Outpatient NIKOLE THOMPSON [id number] Nikole 00:00:00 00:00:00 BEATRICE Seybol d 2023-03-20 2023-03-20 Outpatient NIKOLE THOMPSON [id number] Nikole 00:00:00 00:00:00 BEATRICE Seybol d 2023-03-18 2023-03-18 Outpatient LAB90 NIKOLE VALDEZ [id number] Nikole 08:55:00 08:55:00 Seybol d 2023-03-18 2023-03-18 Outpatient NIKOLE THOMPSON [id number] Nikole 08:15:00 08:15:00 BEATRICE Seybol d 2023-03-05 2023-03-05 Outpatient NIKOLE JONES [id number] Nikole 09:20:00 09:20:00 ALEA Seyb old 2023-03-05 2023-03-05 Outpatient NIKOLE VALDEZ [id number] Nikole 09:10:00 09:10:00 Seybol d 2023-02-18 2023-02-18 Outpatient NIKOLE JONES [id number] Nikole 00:00:00 00:00:00 ALEA Seyb old 2023-02-17 2023-02-17 Outpatient NIKOLE JONES [id number] Nikole 09:50:00 09:50:00 ALEA Seyb old 2023-02-07 2023-02-07 Outpatient NIKOLE LI [id number] Nikole 10:00:00 10:00:00 ESTELA Seybol d 2023-02-05 2023-02-05 Outpatient NIKOLE PARKS [id number] Nikole 09:00:00 09:00:00 MATI Seybol d 2023-02-05 2023-02-05 Outpatient NIKOLE GRAY [id number] Nikole 08:15:00 08:15:00 OSCAR Seybol d 2023-01-30 2023-01-30 Outpatient NIKOLE JONES [id number] Nikole 00:00:00 00:00:00 ALEA Seyb old 2023-01-29 2023-01-29 Outpatient NIKOLE THOMPSON [id number] Nikole 00:00:00 00:00:00 BEATRICE Seybol d 2023-01-29 2023-01-29 Outpatient NIKOLE PARKS [id number] Nikole 00:00:00 00:00:00 MATI Seybol d 2023-01-27 2023-01-27 Outpatient NIKOLE RUBI [id number] Nikole 10:00:00 10:00:00 FAUSTO Seybol d 2023-01-21 2023-01-23 Inpatient EL Medardo, [facility] [id number] [facility] 14:25:00 15:39:00 Alea [facility] 2023-01-23 2023-01-23 Outpatient NIKOLE JONES [id number] Nikole 00:00:00 00:00:00 ALEA Seyb old 2023-01-21 2023-01-21 Outpatient Medardo [facility] LABO [id number] [facility] 17:10:00 17:10:00 Alea 67 [facility] 2023-01-21 2023-01-21 Outpatient NIKOLE HOLT [id number] Nikole 09:30:00 09:30:00 LUCIUS Seybol d 2023-01-20 2023-01-20 Outpatient [id number] PRIV PRIV [id number] [facility] 00:00:00 00:00:00 diyala_S [id number] Medic al 2023-01-20 2023-01-20 Outpatient NIKOLE JONES [id number] Nikole 00:00:00 00:00:00 ALEA Seyb old 2023-01-10 2023-01-10 Outpatient NIKOLE THOMPSON [id number] Nikole 00:00:00 00:00:00 BEATRICE Seybol d 2023-01-08 2023-01-08 Outpatient LAB90 NIKOLE VALDEZ [id number] Nikole 09:20:00 09:20:00 Seybol d 2023-01-08 2023-01-08 Outpatient NIKOLE RUBI [id number] Nikole 08:30:00 08:30:00 FAUSTO Seybol d 2023-01-07 2023-01-07 Outpatient NIKOLE JONES [id number] Nikole 09:05:00 09:05:00 ALEA Seyb old 2023-01-06 2023-01-06 Outpatient NIKOLE JONES [id number] Nikole 00:00:00 00:00:00 ALEA Seyb old 2023-01-04 2023-01-04 Outpatient NIKOLE MOODY [id number] Nikole 00:00:00 00:00:00 DARELL Seybol d 2023-01-03 2023-01-03 Outpatient NIKOLE THOMPSON [id number] Nikole 00:00:00 00:00:00 BEATRICE Seybol d 2023-01-03 2023-01-03 Outpatient TANJA BOB [id number] Nikole 00:00:00 00:00:00 Seybol d 2023-01-03 2023-01-03 Outpatient WAYNENIKOLE [id number] Nikole 00:00:00 00:00:00 MELISSA Seybol d 2022-12-31 2022-12-31 Outpatient LAB90 NIKOLE VALDEZ [id number] Nikole 17:05:00 17:05:00 Seybol d 2022-12-31 2022-12-31 Outpatient PREZANIKOLE Block [id number] Nikole 00:00:00 00:00:00 BEATRICE Seybol d 2022-12-30 2022-12-30 Outpatient PREZANIKOLE Block [id number] Nikole 00:00:00 00:00:00 BEATRICE Seybol d 2022-12-30 2022-12-30 Outpatient JONATHONNIKOLE [id number] Nikole 00:00:00 00:00:00 LUCIUS Seybol d 2022-12-25 2022-12-25 Outpatient RAYMOND DANIELS [id number] Nikole 08:30:00 08:30:00 Seybol d 2022-12-25 2022-12-25 Outpatient LAB90 NIKOLE VALDEZ [id number] Nikole 08:00:00 08:00:00 Seybol d 2022-12-25 2022-12-25 Outpatient PREZAS, NIKOLE VALDEZ [id number] Nikole 00:00:00 00:00:00 BEATRICE Seybol d 2022-12-25 2022-12-25 Outpatient PREZANIKOLE Block [id number] Nikole 00:00:00 00:00:00 BEATRICE Seybol d 2022-12-25 2022-12-25 Outpatient PREZANIKOLE Block [id number] Nikole 00:00:00 00:00:00 BEATRICE Seybol d 2022-12-24 2022-12-24 Outpatient JONATHONNIKOLE [id number] Nikole 09:30:00 09:30:00 LUCIUS Seybol d 2022-12-18 2022-12-18 Outpatient PRENIKOLE BARRY [id number] Nikole 09:30:00 09:30:00 BEATRICE Seybol d 2022-12-18 2022-12-18 Outpatient PREZAS, NIKOLE VALDEZ [id number] Nikole 00:00:00 00:00:00 BEATRICE Seybol d 2022-12-16 2022-12-16 Outpatient PREZAS, NIKOLE VALDEZ [id number] Nikole 00:00:00 00:00:00 BEATRICE Seybol d 2022-12-12 2022-12-12 Outpatient PREZAS, NIKOLE VALDEZ [id number] Nikole 00:00:00 00:00:00 BEATRICE Seybol d 2022-12-12 2022-12-12 Outpatient PREZAS, NIKOLE VALDEZ [id number] Nikole 00:00:00 00:00:00 BEATRICE Seybol d 2022-12-11 2022-12-11 Outpatient HUNDL, NIKOLE VALDEZ [id number] Nikole 00:00:00 00:00:00 FAUSTO Seybol d 2022-12-04 2022-12-04 Outpatient PREZAS, NIKOLE VALDEZ [id number] Nikole 00:00:00 00:00:00 BEATRICE Seybol d 2022-12-03 2022-12-03 Outpatient PREZAS, NIKOLE VALDEZ [id number] Nikole 00:00:00 00:00:00 BEATRICE Seybol d 2022-11-27 2022-11-27 Outpatient KAPPA, NIKOLE VALDEZ [id number] Nikole 00:00:00 00:00:00 MATI Seybol d 2022-11-25 2022-11-25 Outpatient PREZAS, NIKOLE VALDEZ [id number] Nikole 00:00:00 00:00:00 BEATRICE Seybol d 2022-11-19 2022-11-19 Outpatient HUNDL, NIKOLE VALDEZ [id number] Nikole 00:00:00 00:00:00 FAUSTO Seybol d 2022-11-18 2022-11-18 Outpatient LAB90 NIKOLE VALDEZ [id number] Nikole 12:20:00 12:20:00 Seybol d 2022-11-18 2022-11-18 Outpatient RAYMOND DANIELS [id number] Nikole 11:45:00 11:45:00 Seybol d 2022-11-18 2022-11-18 Outpatient NIKOLE THOMPSON [id number] Nikole 00:00:00 00:00:00 BEATRICE Seybol d 2022-11-18 2022-11-18 Outpatient NIKOLE RUBI [id number] Nikole 00:00:00 00:00:00 FAUSTO Seybol d 2022-11-18 2022-11-18 Outpatient NIKOLE RUBI [id number] Nikole 00:00:00 00:00:00 FAUSTO Seybol d 2022-11-15 2022-11-15 Outpatient NIKOLE RUBI [id number] Nikole 00:00:00 00:00:00 FAUSTO Seybol d 2022-11-13 2022-11-13 Outpatient NIKOLE MAK [id number] Nikole 09:00:00 09:00:00 TOTAL Seybol d 2022-11-13 2022-11-13 Outpatient NIKOLE JONES [id number] Nikole 08:30:00 08:30:00 ALEA Seyb old 2022-11-11 2022-11-11 Outpatient NIKOLE JONES [id number] Nikole 09:40:00 09:40:00 ALEA Seyb old 2022-11-06 2022-11-06 Outpatient NIKOLE CLEMONS [id number] Nikole 00:00:00 00:00:00 TREMAYNE Seybol d 2022-10-31 2022-10-31 Outpatient NIKOLE RUBI [id number] Nikole 00:00:00 00:00:00 FAUSTO Seybol d 2022-10-30 2022-10-30 Outpatient NIKOLE VALDEZ [id number] Nikole 10:40:00 10:40:00 Seybol d 2022-10-30 2022-10-30 Outpatient NIKOLE PARKS [id number] Nikole 09:00:00 09:00:00 MATI Seybol d 2022-10-30 2022-10-30 Outpatient NIKOLE VALDEZ [id number] Nikole 08:15:00 08:15:00 Seybol d 2022-10-30 2022-10-30 Outpatient NIKOLE VALDEZ [id number] Nikole 08:10:00 08:10:00 Seybol d 2022-10-29 2022-10-29 Outpatient NIKOLE PARKS [id number] Nikole 00:00:00 00:00:00 MATI Seybol d 2022-10-29 2022-10-29 Outpatient NIKOLE PARKS [id number] Nikole 00:00:00 00:00:00 MATI Seybol d 2022-10-28 2022-10-28 Outpatient NIKOLE CLEMONS [id number] Nikole 00:00:00 00:00:00 TREMAYNE Seybol d 2022-10-25 2022-10-25 Outpatient NIKOLE RUBI [id number] Nikole 00:00:00 00:00:00 FAUSTO Seybol d 2022-10-25 2022-10-25 Outpatient HUNDLNIKOLE [id number] Nikole 00:00:00 00:00:00 FAUSTO Seybol d 2022-10-24 2022-10-24 Outpatient HUNDLNIKOLE [id number] Nikole 00:00:00 00:00:00 FAUSTO Seybol d 2022-10-22 2022-10-22 Outpatient JEREMIAH, RAYMOND VALDEZ [id number] Nikole 10:00:00 10:00:00 Seybol d 2022-10-22 2022-10-22 Outpatient HUNDLNIKOLE [id number] Nikole 00:00:00 00:00:00 FAUSTO Seybol d 2022-10-17 2022-10-17 Outpatient HUNDL, NIKOLE VALDEZ [id number] Nikole 00:00:00 00:00:00 FAUSTO Seybol d 2022-10-16 2022-10-16 Outpatient HUNDL, NIKOLE VALDEZ [id number] Nikole 00:00:00 00:00:00 FAUSTO Seybol d 2022-10-15 2022-10-15 Outpatient LAB90 NIKOLE VALDEZ [id number] Nikole 10:55:00 10:55:00 Seybol d 2022-10-15 2022-10-15 Outpatient NIKOLE RUBI [id number] Nikole 09:30:00 09:30:00 FAUSTO Seybol d 2022-10-15 2022-10-15 Outpatient NIKOLE CLEMONS [id number] Nikole 00:00:00 00:00:00 TREMAYNE Seybol d 2022-09-10 2022-09-10 Outpatient NIKOLE CLEMONS [id number] Nikole 00:00:00 00:00:00 TREMAYNE Seybol d 2022-08-28 2022-08-28 (IN/ASP) STLMLC STLMLC [id number] C ommon 00:00:00 00:00:00 INJ ASP [facility] 2022-08-21 2022-08-21 (IN/ASP) STLMLC STLMLC [id number] C ommon 00:00:00 00:00:00 INJ ASP [facility] 2022-08-13 2022-08-13 Outpatient NIKOLE CLEMONS [id number] Nikole 00:00:00 00:00:00 TREMAYNE Seybol d 2022-07-17 2022-07-17 (TEL) STLMLC STLMLC [id number] Co mmon 00:00:00 00:00:00 [facility] 2022-07-15 2022-07-15 Outpatient NIKOLE CLEMONS [id number] Nikole 00:00:00 00:00:00 TREMAYNE Seybol d 2022-07-10 2022-07-10 Outpatient NIKOLE CLEMONS [id number] Nikole 00:00:00 00:00:00 TREMAYNE Seybol d 2022-07-09 2022-07-09 (TEL) STLMLC STLMLC [id number] Co mmon 00:00:00 00:00:00 [facility] 2022-07-08 2022-07-08 Outpatient NIKOLE CLEMONS [id number] Nikole 00:00:00 00:00:00 TREMAYNE Seybol d 2022-07-08 2022-07-08 OFFICE STLMLC STLMLC [id number] Co mmon 00:00:00 00:00:00 VISIT EST Spir it PT LEVEL 3 [facility] 2022-07-04 2022-07-04 Outpatient NIKOLE MENSAH [id number] Nikole 00:00:00 00:00:00 BOB [facility]ley 2022-06-17 2022-06-17 NON-BILLAB STLMLC STLMLC [id number] Common 00:00:00 00:00:00 LE VISIT [facility] 2022-05-28 2022-05-28 (TEL) STLMLC STLMLC [id number] Co mmon 00:00:00 00:00:00 [facility] 2022-05-23 2022-05-23 OFFICE STLMLC STLMLC [id number] Co mmon 00:00:00 00:00:00 VISIT EST Spir it PT LEVEL 3 [facility] 2022-05-20 2022-05-20 Outpatient NIKOLE CLEMONS [id number] Nikole 09:15:00 09:15:00 TREMAYNE manley 2022-05-15 2022-05-15 Outpatient NIKOLE CLEMONS [id number] Nikole 10:00:00 10:00:00 TREMAYNE manley 2022-05-13 2022-05-13 (TEL) STLMLC STLMLC [id number] Co mmon 00:00:00 00:00:00 [facility] 2022-04-24 2022-04-24 NON-BILLAB STLMLC STLMLC [id number] Common 00:00:00 00:00:00 LE VISIT [facility] 2022-04-05 2022-04-05 (TEL) STLMLC STLMLC [id number] Co mmon 00:00:00 00:00:00 [facility] 2022-04-05 2022-04-05 (TEL) STLMLC STLMLC [id number] Co mmon 00:00:00 00:00:00 [facility] 2022-03-19 2022-03-19 (TEL) STLMLC STLMLC [id number] Co mmon 00:00:00 00:00:00 [facility] 2022-03-18 2022-03-18 OFFICE STLMLC STLMLC [id number] Co mmon 00:00:00 00:00:00 VISIT EST Spir it PT LEVEL 3 [facility] 2022-01-29 2022-01-29 (TEL) STLMLC STLMLC [id number] Co mmon 00:00:00 00:00:00 [facility] 2022-01-16 2022-01-16 OFFICE STLMLC STLMLC [id number] Co mmon 00:00:00 00:00:00 VISIT EST Spir it PT LEVEL 3 [facility] 2021-12-18 2021-12-18 (TEL) STLMLC STLMLC [id number] Co mmon 00:00:00 00:00:00 [facility] 2021-12-17 2021-12-17 OFFICE STLMLC STLMLC [id number] Co mmon 00:00:00 00:00:00 VISIT EST Spir it PT LEVEL 3 [facility] 2021-11-26 2021-11-26 OFFICE STLMLC STLMLC [id number] Co mmon 00:00:00 00:00:00 VISIT EST Spir it PT LEVEL 3 [facility] 2021-07-09 2021-07-09 OFFICE STLMLC STLMLC [id number] Co mmon 00:00:00 00:00:00 VISIT EST Spir it PT LEVEL 3 [facility] 2021-06-19 2021-06-19 (TEL) STLMLC STLMLC [id number] Co mmon 00:00:00 00:00:00 [facility] 2021-06-18 2021-06-18 OFFICE STLMLC STLMLC [id number] Co mmon 00:00:00 00:00:00 VISIT EST Spir it PT LEVEL 3 [facility] 2021-01-08 2021-01-08 Outpatient STLMLC STLMLC [id number] Common 00:00:00 00:00:00 [facility] 2021-01-04 2021-01-04 Outpatient STLMLC STLMLC [id number] Common 00:00:00 00:00:00 [facility] 2020-05-30 2020-05-30 Outpatient STLMLC STLMLC [id number] Common 00:00:00 00:00:00 [facility] 2020-05-23 2020-05-23 Outpatient STLMLC STLMLC [id number] Common 00:00:00 00:00:00 [facility] 2020-02-03 2020-02-03 Outpatient Ajibade_O_A VFP VFP [id number] [facility] 05:06:00 05:06:00 H [id number] Family Practic e 2020-02-03 2020-02-03 Outpatient Ajibade_O_A VFP VFP [id number] [facility] 05:06:00 05:06:00 H [id number] Family Practic e 2019-07-28 2019-07-28 Outpatient Ige-Odunuga VFP VFP [id number] [facility] 07:24:00 07:24:00 _J_AH [id number] Family Practic e 2019-07-28 2019-07-28 Outpatient Ige-Odunuga VFP VFP [id number] [facility] 07:24:00 07:24:00 _J_AH [id number] Family Practic e Results Test Description Test Time Test Comments Results Result Comments Source HGB HCT 2023-01-22 05:58:00 Test Item Value Reference Range Interpretation Comme nts HEMOGLOBIN (test code = HGB) 12.9 g/dL 12-16 N HEMATOCRIT (test code = HCT) 38.5 % 37-47 N SPECIMEN COMMENT: POD #[id number] 15:48:32 Test Item Value Reference Interpretation Comments Range QuantaFlo left side 0.99 See_Comment [Automa kait message] The (test code = system which ge nerated this 14148-2Y) result transmit kait reference range : 1.40 - 0.90 NA. The re ference range was not u sed to interpret this result as normal/abnormal . QuantaFlo right side 0.85 See_Comment L Present ation Factors: (test code = Hypertension, 53233-8X) HyperlipidemiaE xercise Modality: At Re stNormal - 1.40 - 1.00Bord milli - 0.99 - 0.90Mild - 0.89 - 0.60Moderate - 0.59 - 0.30Severe - 0. 29 - 0.00 [Automated mess age] The system which ge nerated this result transmit kait reference range : 1.40 - 0.90 NA. The re ference range was not u sed to interpret this result as normal/abnormal . Lab Interpretation Abnormal (test code = 48853-4) Nikole Ladd - External History and Physical Notes Date/Time Note Provider Source 2022-12-18 [id number] of this note is Ivanna 09:43:08 different from the original.Seen by Orthopedics- Dr. maria dolores Jones. She is needing total knee replacement to the Clinic right side. She has had Arthritis to the Knee fo r a while. She is currently on medication Mobic. Pas t medical History: HTNPrediabetesGERDNeuropathyHyperlipidemiaHistor y of Breast Cancer, Currently on Tamoxifen. History o f radiation. Oncology-Dr. Eller History: [facility] ast Lumpectomy-2019, right side. CholecystectomyPart ial hysteretomyRight arm fracture repair. 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 ROS: Unremarkable: Lab 10/2022: Fasting lipid panel unremarkable.A1c 6.3CBC/CMP/TSH unremarkable. Physical exam: GEN: Alert, cooperative, in no ac [place] distress.HEENT: Nares patent. Oropharynx moist. Unremarkable.NECK: Supple. No thyromegalyHEART: Heart regular rate and rhythmLUNG: Lungs clear to auscultationABDOMEN: Abdomen soft nontender nondistended.EXT: Good range of motion. Patient using cane.Assessment/Plan: Chronic osteoarthritis of the right knee: Patient seen by orthopedics. Right k nee total replacement is recommended. Patient medica lly evaluated. Unremarkable cardiac or pulmonary iss ues at this time. Patient cleared for surgery medica lly. Proceed with preop evaluation and surgery. I satnam l continue to follow her postoperatively.HTN: Controlled. Medication reviewed and updated. Currently on ramipril. Maintain blood pressure l ess than 130/80. Prediabetes: Recent lab work showed hemoglobin A1c 6.3. Continue diet and lifestyle modification. Recommend to decrease carbohydrate intake to less than 45 g per meal and 15 g per s nack. Recheck lab-hemoglobin A1c in 3 to 6 months to monitor progress. Recommend follow-up postoperatively.GERD: Controlled. Medication rev iewed and updatedNeuropathy: Controlled. Medication reviewed and updated. Patient taking Neurontin o nce daily as needed.Hyperlipidemia: Controlled. Medication reviewed and updated. Continue with current medication.History of Breast Cancer: hea rt currently on Tamoxifen. History of radiation. Oncology-Dr. Lipscomb 58591-0Itnb ory and physical [id number]:13:39History an d physical [id number] AVAvailable for patient [facility] [facility].[id number] 10:13 :[id number]. 131.2 .[id number]"
[2023-04-11] MEDS ORDERED: MORPHINE 4 MG/ML SYR ONE ×2 (19:13→22:11)
[2023-04-11] MEDS ORDERED: ONDANSETRON 4 MG/2 ML VIAL ONE (19:14)
[2023-04-11 19:44] LABS: Absolute Lymphocytes (CBC) 0.6 K/uL (0.7-4.9); Hematocrit 31.6 % (36.0-45.0); Lymphocytes % 5.1 % (15.3-44.8); MCV 86.1 fL (80-100); MPV 8.9 fL (7.6-11.3); Platelets 224 thou/uL (152-406); RBC Red Blood Cell Count 3.67 M/uL (3.86-4.86)
[2023-04-11 19:45] LABS: Protime INR 1.13
[2023-04-11 20:01] LABS: Bilirubin Direct 0.4 mg/dL (0-0.2); Bilirubin Total 1.4 mg/dL (0.2-1.0); Magnesium 2.1 mg/dL (1.6-2.4); Potassium 3.8 mEq/L (3.5-5.1); Protein, Total 6.2 g/dL (6.4-8.2); Troponin High Sensitivity 12.6 pg/mL (<58.9)
--- NOTE | 2023-04-11 20:20 | RAD REPORT ---
EXAM DESCRIPTION: RAD - Elbow Right 3 View - 04/11/2023 8:03 pm CLINICAL HISTORY: Right elbow pain status post injury FINDINGS: No fracture or dislocation is seen.
[2023-04-11 21:02] LABS: Platelet Estimate ADEQ; White Blood Cell Scan OK (OK)
[2023-04-11 21:03] LABS: Blood Morphology Comment NOT SEEN (NOT SEEN)
--- NOTE | 2023-04-11 21:11 | RAD REPORT ---
EXAM DESCRIPTION: CT - Head C Spine Raphael Watson - 04/11/2023 8:37 pm CLINICAL HISTORY: Head and neck injury with chest and abdominal pain status post fall. Head and neck pain . TECHNIQUE: Computed axial tomography of the head and cervical spine was obtained Computed axial tomography of the chest, abdomen and pelvis was obtained. 100 cc Isovue-300 was given intravenously coronal and sagittal reconstruction was performed. All CT scans are performed using dose optimization technique as appropriate and may include automated exposure control or mA/KV adjustment according to patient size. COMPARISON: December 2021 FINDINGS: An intracranial bleed is not seen. The ventricles are normal in caliber. Mild to moderate low-density areas periventricular, deep and subcortical white matter probably ischemic changes second gypsy to small vessel disease. An extra-axial fluid collection is not noted. Fluid within the sinuses i s not seen A cervical fracture is not seen. No dislocation is seen. A mediastinal hematoma is not noted. A pleural effusion is not present. A lung contusion is not seen. The liver, spleen, pancreas, adrenals, kidneys and bladder do not demonstrate an acute traumatic inju ry Moderate compression fracture T7 vertebral body. No retropulsion of bone into the spinal canal. Compr ession estimated to be 50%. It has developed since the prior exam Intertrochanteric fracture right femur. Avulsion of the greater and lesser trochanters present. Fract ure is comminuted. Moderate displacement fracture fragments. Marked angulation present at the fractur e site Hepatic cysts. Prominent dilatation common hepatic and common bile ducts Old pelvic fractures. Acevedo catheter within the bladder 6 millimeter right lung nodule is stable. Additional calcified right lung nodule. IMPRESSION: No acute intracranial abnormality is seen A cervical fracture is not visualized. If the patient continues have symptoms to suggest intracranial /spinal cord pathology then MRI would be recommended. Intertrochanteric fracture right femur. Avulsion of the greater and lesser trochanters present. Fract ure is comminuted. Moderate displacement fracture fragments. Marked angulation present at the fractur e site Moderate compression fracture T7 vertebral body could be subacute or acute. If clinically indicated f urther evaluation with MRI could be obtained Prominent dilatation common hepatic and common bile ducts. This may be physiologic in this patient st atus post cholecystectomy. Pathology such as a stricture can also result in this appearance and shoul d be correlated clinically and with appropriate lab values
--- NOTE | 2023-04-11 21:12 | RAD REPORT ---
EXAM DESCRIPTION: Drake Single View04/11/2023 8:03 pm CLINICAL HISTORY: Chest pain COMPARISON: 2020 FINDINGS: 6 millimeter nodule mid right lung unchanged Calcified granuloma right upper lobe Left lung appears clear Heart is normal size
--- NOTE | 2023-04-11 21:13 | RAD REPORT ---
EXAM DESCRIPTION: RAD - Femur Right - 04/11/2023 8:03 pm CLINICAL HISTORY: Leg pain FINDINGS: Comminuted fracture inter trochanteric right femur. Greater and lesser trochanters avulsed . Moderate displacement of fracture fragments. Marked angulation present at the fracture site No dislocation Right knee prosthesis in good position
--- NOTE | 2023-04-11 21:14 | RAD REPORT ---
EXAM DESCRIPTION: RAD - Pelvis - 04/11/2023 8:03 pm CLINICAL HISTORY: Pelvic pain status post injury FINDINGS: Comminuted fracture inter trochanteric right femur. Greater and lesser trochanters avulsed . Moderate displacement of fracture fragments. Marked angulation present at the fracture site No dislocation Old pelvic fractures
[2023-04-11 21:37] LABS: Calcium Oxalate Crystals- Ur Few /HPF (None Seen); Specific Gravity > 1.030 (1.005-1.030); Urine Bacteria None Seen /HPF (<20); Urine Bilirubin NEGATIVE (Negative); Urine Blood Negative (Negative); Urine Clarity Extremely Turbid (Clear); Urine Color Light-Yellow (Yellow); Urine Glucose 1+ (Negative); Urine Mucus Slight /HPF (None Seen); Urine Protein TRACE (Negative); Urine Urobilinogen Normal (Normal); Urine pH 6.5 (5.0-7.0)
--- NOTE | 2023-04-11 21:44 | ER ---
Nurse's Notes [facility] Name: Autumn Santiago Age: 82 yrs Sex: Female : 1940 Arrival Date: 04/11/2023 Time: 18:33 Bed 19 Private MD: Diagnosis: Displaced intertrochanteric fracture of right femur;Fall on same level, unspecified;Thoracic Compression Fracture Presentation: 04/11 18:43 Chief complaint: EMS states: toned out for fall on right hip, pt has Hx of right hip eh3 fracture. Hit back of head, denies LOC, c/o right hip and leg and low back pain. Coronavirus screen: Vaccine status: Patient reports receiving the 2nd dose of the covid vaccine. Ebola Screen: No symptoms or risks identified at this time. Initial Sepsis Screen: Does the patient meet any 2 criteria? No. Patient's initial sepsis screen is negative. Does the patient have a suspected source of infection? No. Patient's initial sepsis screen is negative. Risk Assessment: Do you want to hurt yourself or someone else? Patient reports no desire to harm self or others. Onset of symptoms was April 11, 2023. 18:43 Method Of Arrival: EMS: [facility] 18:43 Acuity: MEME 3 eh3 Triage Assessment: 18:44 General: Appears in no apparent distress. uncomfortable, Behavior is cooperative. Pain: eh3 Complains of pain in right hip Pain radiates to back and right leg. Neuro: Level of Consciousness is awake, alert, obeys commands, Oriented to person, situation. Cardiovascular: Capillary refill < 3 seconds Patient's skin is warm and dry. Respiratory: Airway is patent Respiratory effort is even, unlabored, Respiratory pattern is regular, symmetrical. Derm: Skin is pink, warm \T\ dry. Musculoskeletal: Circulation, motion, and sensation intact. Historical: - Allergies: 18:45 No Known Allergies; eh3 - Home Meds: 20:42 aspirin 81 mg oral tablet, delayed release (enteric coated) 1 tab daily [Active]; eh3 alendronate 70 mg oral tablet 1 tab every week [Active]; - PMHx: 18:44 Cancer; High Cholesterol; Hypertension; neuropathy; Osteoporosis; eh3 - Immunization history:: Adult Immunizations up to date. - Social history:: Smoking status: unknown. Screenin:45 [facility] ED Fall Risk Assessment (Adult) Score/Fall Risk Level 0 - 2 = Low Risk. Abuse eh3 screen: Denies threats or abuse. Denies injuries from another. Nutritional screening: No deficits noted. Tuberculosis screening: No symptoms or risk factors identified. Assessment: 18:45 Reassessment: Patient appears in no apparent distress at this time. See triage eh3 assessment. 19:45 Reassessment: Patient and/or family updated on plan of care and expected duration. Pain eh3 level reassessed. Patient is alert, oriented x 3, equal unlabored respirations, skin warm/dry/pink. Pt is alert, oriented x 2, equal unlabored respirations, skin warm/dry/pink. See triage assessment. 20:43 Reassessment: Spoke with pt's on phone, he states she took Alendronate 70mg for eh3 the first time this morning. She fell in the bathroom by the toilet this morning and was able to get up and ambulate to chair with walker. Then she fell again this evening using her walker and hit her head on a chair, was not able to get back up, and called ambulance. 20:45 Reassessment: Patient and/or family updated on plan of care and expected duration. Pain eh3 level reassessed. Pt is alert, oriented x 2, equal unlabored respirations, skin warm/dry/pink. 23:25 Reassessment: REPORT GIVEN TO LILI BARDALES [facility]. rv Vital Signs: 18:43 BP 161 / 95; Pulse 102; Resp 20; Temp 97.5(IR); Pulse Ox 98% on R/A; eh3 19:30 BP 158 / 93; Pulse 98; Resp 18; Pulse Ox 100% on R/A; eh3 20:40 BP 128 / 97; Pulse 116; Resp 18; Pulse Ox 100% on R/A; eh3 21:42 Weight 56.7 kg; as6 22:00 BP 122 / 84; Pulse 106; Resp 18; Pulse Ox 99% on R/A; rv 23:00 BP 142 / 87; Pulse 83; Resp 18; Temp 98; Pulse Ox 99% on R/A; rv [place] Coma Score: 22:00 Eye Response: spontaneous(4). Motor Response: obeys commands(6). Verbal Response: rv confused(4). Total: 14. 22:00 Eye Response: spontaneous(4). Motor Response: obeys commands(6). Verbal Response: rv confused(4). Total: 14. 23:00 Eye Response: spontaneous(4). Motor Response: obeys commands(6). Verbal Response: rv confused(4). Total: 14. ED Course: 18:42 Patient arrived in ED. eh3 18:44 Albin Bolton PA is PHCP. cp 18:44 Steve Augustine MD is Attending Physician. cp 18:44 Triage completed. eh3 18:44 Arm band placed on. eh3 18:45 Patient has correct armband on for positive identification. Bed in low position. Call eh3 light in reach. Side rails up X2. Provided Education on: use of call olivares. Pulse ox on. NIBP on. 18:55 Viji Arenas, RN is Primary Nurse. eh3 19:16 Radiology exam delayed due to IV insertion attempt and/or patient not having nj appropriate IV at this time. 19:16 Radiology exam delayed due to lab results not completed at this time. (BUN/Creatinine). nj 19:38 Radiology exam delayed due to lab results not completed at this time. (BUN/Creatinine). nj 19:56 Radiology exam delayed due to lab results not completed at this time. (BUN/Creatinine). nj 20:04 XRAY Chest (1 view) In Process Unspecified. EDMS 20:04 Pelvis XRAY In Process Unspecified. EDMS 20:04 XRAY Femur RIGHT In Process Unspecified. EDMS 20:05 XRAY Elbow RIGHT 3 view In Process Unspecified. EDMS 20:18 Radiology exam delayed due to patient getting connor done at this time. nj 20:27 Connor cath inserted, using sterile technique, 16 Fr., by ut, balloon inflated, to rv gravity drainage. 20:39 CT Traumagram (Head C Spine CAP W Con) In Process Unspecified. EDMS 20:45 Report given to JEFFY Hodge. eh3 21:21 Nelson Pablo MD is Attending Physician. cp 21:47 No provider procedures requiring assistance completed. rv 21:50 pt transferred to [facility]. approval time [address] rivera admin approval kmf given by kathy. report number [phone]. 22:30 Primary Nurse role handed off by Viji Arenas, RN as6 23:13 Adarsh Begum, RN is Primary Nurse. rv 23:25 Patient transferred, IV remains in place. rv Administered Medications: 19:25 Drug: morphine IVP or IV 4 mg IVP once over 4 mins Route: IVP; Infused Over: 4 mins; eh3 Site: right antecubital; 23:25 Follow up: Response: No adverse reaction rv 19:25 Drug: Ondansetron IVP 4 mg IVP once; over 2 minutes Route: IVP; Site: right antecubital;eh3 23:25 Follow up: Response: No adverse reaction rv 21:59 Drug: morphine IVP or IV 4 mg IVP once over 4 mins Route: IVP; Infused Over: 4 mins; rv Site: right antecubital; 23:24 Follow up: Response: No adverse reaction rv Medication: 23:26 VIS not applicable for this client. rv Outcome: 21:44 ER care complete, transfer ordered by . cp 23:25 Transferred by ground EMS to [facility], Transfer form completed. X-rays sent rv w/ patient. 23:25 Condition: good 23:25 Instructed on the need for transfer, 23:26 Patient left the ED. rv Signatures: Dispatcher [employer] EDMS Albin Bolton PA PA cp Jordan, Nathan nj Vicente, Ronaldo, RN RN rv Salvatore Delarosa RN RN as6 Viji Arenas, JEFFY BARDALES 3 Nikole Bowen [facility] Corrections: (The following items were deleted from the chart) 18:45 18:44 PMHx: Cancer; eh3 eh3 21:14 18:45 Reassessment: Patient and/or family updated on plan of care and expected eh3 duration. Pain level reassessed. Patient is alert, oriented x 3, equal unlabored respirations, skin warm/dry/pink. Pt is alert, oriented x 2, equal unlabored respirations, skin warm/dry/pink eh3 21:15 19:45 Reassessment: Patient and/or family updated on plan of care and expected eh3 duration. Pain level reassessed. Patient is alert, oriented x 3, equal unlabored respirations, skin warm/dry/pink. Pt is alert, oriented x 2, equal unlabored respirations, skin warm/dry/pink eh3
--- NOTE | 2023-04-11 21:45 | EDPHYS ---
Physician Documentation [facility] Name: Autumn Santiago Age: 82 yrs Sex: Female : 1940 Arrival Date: 04/11/2023 Time: 18:33 Bed 19 Private MD: ED Physician Nelson Pablo HPI: 04/11 19:00 This 82 yrs old Female presents to ER via EMS with complaints of Fall Injury. cp 19:00 Details of fall: The patient fell from an upright position, while walking. Onset: The cp symptoms/episode began/occurred just prior to arrival. Associated injuries: The patient sustained right hip, decreased range of motion, deformity, painful injury. Severity of symptoms: in the emergency department the symptoms are unchanged, despite EMS interventions. Historical: - Allergies: 18:45 No Known Allergies; eh3 - Home Meds: 20:42 aspirin 81 mg oral tablet, delayed release (enteric coated) 1 tab daily [Active]; eh3 alendronate 70 mg oral tablet 1 tab every week [Active]; - PMHx: 18:44 Cancer; High Cholesterol; Hypertension; neuropathy; Osteoporosis; eh3 - Immunization history:: Adult Immunizations up to date. - Social history:: Smoking status: unknown. ROS: 19:05 Constitutional: Negative for body aches, chills, fever, poor PO intake, cp 19:05 Eyes: Negative for injury, pain, redness, and discharge, cp 19:05 ENT: Negative for drainage from ear(s), ear pain, sore throat, difficulty swallowing, difficulty handling secretions, 19:05 Neck: Negative for pain with movement, pain at rest, 19:05 Cardiovascular: Negative for chest pain, 19:05 Respiratory: Negative for cough, shortness of breath, wheezing, 19:05 Abdomen/GI: Negative for abdominal pain, vomiting, diarrhea, constipation, 19:05 Back: Positive for pain at rest, 19:05 MS/extremity: Positive for injury or acute deformity, decreased range of motion, pain, of the right hip, 19:05 Neuro: Negative for altered mental status, 19:05 All other systems are negative, Exam: 19:06 ECG was reviewed by the Attending Physician. cp 19:10 Constitutional: The patient appears in no acute distress, alert, awake, cp non-diaphoretic, non-toxic, well developed, well nourished, 19:10 Head/Face: Normocephalic, atraumatic. cp 19:10 Eyes: Periorbital structures: appear normal, Conjunctiva: normal, no exudate, no injection, Sclera: no appreciated abnormality, Lids and lashes: appear normal, bilaterally, 19:10 ENT: External ear(s): are unremarkable, Nose: is normal, Mouth: Lips: moist, Oral mucosa: pink and intact, moist, Posterior pharynx: is normal, airway is patent, no erythema, no exudate, 19:10 Neck: C-spine: vertebral tenderness, is not appreciated, crepitus, is not appreciated, ROM/movement: is normal, is supple, without pain, no range of motions limitations, 19:10 Chest/axilla: Inspection: normal, Palpation: is normal, no crepitus, no tenderness, 19:10 Cardiovascular: Rate: tachycardic, Rhythm: regular, Edema: is not appreciated, JVD: is not appreciated, 19:10 Respiratory: the patient does not display signs of respiratory distress, Respirations: normal, no use of accessory muscles, no retractions, labored breathing, is not present, Breath sounds: are clear throughout, no decreased breath sounds, no stridor, no wheezing, 19:10 Abdomen/GI: Inspection: abdomen appears normal, Bowel sounds: active, all quadrants, Palpation: abdomen is soft and non-tender, in all quadrants, 19:10 Back: pain, that is mild, of the thoracic area, 19:10 Musculoskeletal/extremity: Extremities: grossly normal except: noted in the right hip: decreased ROM, deformity, pain, swelling, tenderness, ROM: limited passive range of motion due to pain, in the right hip, Pulses: noted to be 2+ in the right dorsalis pedis artery, 19:10 Neuro: Orientation: to person, situation, Mentation: able to follow commands, slow to respond, Vital Signs: 18:43 BP 161 / 95; Pulse 102; Resp 20; Temp 97.5(IR); Pulse Ox 98% on R/A; eh3 19:30 BP 158 / 93; Pulse 98; Resp 18; Pulse Ox 100% on R/A; eh3 20:40 BP 128 / 97; Pulse 116; Resp 18; Pulse Ox 100% on R/A; eh3 21:42 Weight 56.7 kg; as6 22:00 BP 122 / 84; Pulse 106; Resp 18; Pulse Ox 99% on R/A; rv 23:00 BP 142 / 87; Pulse 83; Resp 18; Temp 98; Pulse Ox 99% on R/A; rv [place] Coma Score: 22:00 Eye Response: spontaneous(4). Motor Response: obeys commands(6). Verbal Response: rv confused(4). Total: 14. 22:00 Eye Response: spontaneous(4). Motor Response: obeys commands(6). Verbal Response: rv confused(4). Total: 14. 23:00 Eye Response: spontaneous(4). Motor Response: obeys commands(6). Verbal Response: rv confused(4). Total: 14. MDM: 18:45 Patient medically screened. cp 19:00 Differential diagnosis: closed head injury, contusion, fracture, multiple trauma. 20:46 ED course: msg left on voicemail of ortho consult, DR Calle. 21:20 Data reviewed: vital signs, nurses notes, lab test result(s), radiologic studies, CT cp scan, plain films, and as a result, I will transfer patient. 21:20 I considered the following discharge prescriptions or medication management in the emergency department Medications were administered in the Emergency Department. See AUG. 04/11 18:46 Order name: Basic Metabolic Panel; Complete Time: 20:10 04/11 20:10 Interpretation: Normal except: GLUC 200; GFR 59. 04/11 18:46 Order name: CBC with Diff; Complete Time: 21:17 04/11 20:10 Interpretation: Normal except: WBC 11.80; RBC 3.67; HGB 10.8; HCT 31.6; RDW 15.9; CHRISSY% cp 89.0; LYM% 5.1; NEUT A 10.5; LYMA 0.6. 04/11 18:46 Order name: LFT's; Complete Time: 20:10 04/11 20:11 Interpretation: Normal except: BILIT 1.4; BILID 0.4; IBILI, CALC 1.0; TP 6.2; ALB 3.0; cp A/G 0.9. 04/11 18:46 Order name: Magnesium; Complete Time: 20:10 04/11 18:46 Order name: NT PRO-BNP; Complete Time: 20:10 cp 04/11 18:46 Order name: PT-INR; Complete Time: 20:10 cp 04/11 18:46 Order name: Troponin HS; Complete Time: 20:10 cp 04/11 20:11 Interpretation: Troponin HS 12.6; Reviewed. 04/11 18:46 Order name: Urinalysis W/Microscopic; Complete Time: 21:47 cp 04/11 21:03 Order name: CBC Smear Scan; Complete Time: 21:17 EDMS 04/11 18:46 Order name: XRAY Chest (1 view); Complete Time: 21:17 cp 04/11 21:18 Interpretation: Report review. 04/11 18:46 Order name: Pelvis XRAY; Complete Time: 21:17 cp 04/11 18:50 Order name: XRAY Femur RIGHT; Complete Time: 21:17 cp 04/11 18:59 Order name: XRAY Elbow RIGHT 3 view; Complete Time: 21:17 04/11 19:11 Order name: CT Traumagram (Head C Spine CAP W Con); Complete Time: 21:17 cp 04/11 18:46 Order name: EKG; Complete Time: 18:59 cp 04/11 18:46 Order name: Cardiac monitoring; Complete Time: 18:55 cp 04/11 18:46 Order name: EKG - Nurse/Tech; Complete Time: 19:33 cp 04/11 18:46 Order name: IV Saline Lock; Complete Time: 19:33 cp 04/11 18:46 Order name: Labs collected and sent; Complete Time: 19:33 cp 04/11 18:46 Order name: O2 Per Protocol; Complete Time: 18:55 cp 04/11 18:46 Order name: O2 Sat Monitoring; Complete Time: 18:55 cp 04/11 18:46 Order name: Acevedo; Complete Time: 20:27 cp EC:06 Rate is 98 beats/min. Rhythm is regular. CA interval is normal. QRS interval is normal. cp QT interval is normal. T waves are Inverted in lead aVR. Interpreted by me. Reviewed by me. Administered Medications: 19:25 Drug: morphine IVP or IV 4 mg IVP once over 4 mins Route: IVP; Infused Over: 4 mins; 3 Site: right antecubital; 23:25 Follow up: Response: No adverse reaction rv 19:25 Drug: Ondansetron IVP 4 mg IVP once; over 2 minutes Route: IVP; Site: right antecubital;3 23:25 Follow up: Response: No adverse reaction rv 21:59 Drug: morphine IVP or IV 4 mg IVP once over 4 mins Route: IVP; Infused Over: 4 mins; rv Site: right antecubital; 23:24 Follow up: Response: No adverse reaction rv Disposition: 04/12 00:13 Co-signature as Attending Physician, Nelson Pablo MD I reviewed the patient's care rt provided by the Advanced Practice Provider and agree with the diagnosis and treatment plan. Disposition Summary: 04/11/23 21:44 Transfer Ordered Notes: Transfer Location: [facility] cp Reason: Higher level of care cp Condition: Stable cp Problem: new cp Symptoms: have improved cp Accepting Physician: DR Campbell(04/11/23 23:26) rv Diagnosis - Displaced intertrochanteric fracture of right femur cp - Fall on same level, unspecified cp - Thoracic Compression Fracture cp Forms: - Medication Reconciliation Form cp - SBAR form cp Signatures: Dispatcher [employer] EDMS Albin Bolton PA PA cp Adarsh Begum RN RN rv Viji Arenas RN RN 3 Nelson Pablo MD MD rt Corrections: (The following items were deleted from the chart) 04/11 18:45 18:44 PMHx: Cancer; [place] [id number] 22:20 21:44 Doctor cp cp 22:29 22:20 DR Singh cp cp 22:29 22:29 DR Campbell cp cp 22:30 22:29 DR Campbell cp cp 23:26 22:30 DR Campbell cp rv 04/12 23:04 04/11 19:05 Constitutional: Negative for cp cp
[2023-04-11 23:59] VITALS: O2SAT 99
[2023-04-12 00:15] VITALS: BP 142/87; TEMP 98
== END 2023-04-11 23:26 | disposition short-term general hospital (02) ==
LOC: ER 18:33
DX: S72.141A Displaced intertrochanteric fracture of right femur, initial encounter for closed fracture (principal); S22.069A Unspecified fracture of T7-T8 vertebra, initial encounter for closed fracture; W18.30XA Fall on same level, unspecified, initial encounter; E78.00 Pure hypercholesterolemia, unspecified; I10 Essential (primary) hypertension; Z79.82 Long term (current) use of aspirin
CPT/HCPCS: 93005; 85025; 81001; 80048; 36415; 83735; 85610; 80076; 84484; 83880; 70450; 72125; 71260; 74177; 71045; 72170; 73080; 73552; 51702; 96375; 96374; 99285; Q9967; J2405